=== PATIENT | male | born 1990 | race Two or more races ===

== ENCOUNTER 2022-04-18 08:08 | Inpatient (IN) | payer MEDICAID, SELFPAY ==
[2022-04-18] VITALS (7 sets, daily range): BP systolic 110–136; BP diastolic 65–85; PULSE 90–112; RESP 16–27; TEMP 36.6–37.3; O2SAT 97–100; BMI 20.3
--- NOTE | ~2022-04-18 | XR_ITS ---
EXAMINATION: XR CHEST CLINICAL INFORMATION: Chest tube placement COMPARISON: Chest x-ray performed at 10:22 AM TECHNIQUE: Frontal view of the chest was obtained. FINDINGS: There is interval insertion of a right chest tube with resolution of pneumothorax. The lungs are expanded and clear heart size and pulmonary vascularity is normal. No gross bony abnormality seen. XR/XR chest 1V IMPRESSION: Interval insertion of right chest tube with resolution of pneumothorax. Interval resolution of right pneumothorax status post placement of a chest catheter. The tip of the catheter overlies sixth posterior rib.
--- NOTE | ~2022-04-18 | XR_ITS ---
EXAMINATION: XR CHEST CLINICAL INFORMATION: Follow-up pneumothorax COMPARISON: 04/19/2022 and 04/18/2020 TECHNIQUE: Frontal view of the chest was obtained. FINDINGS: There is stable position of pigtail catheter on the right. No new tubes are identified. Right-sided pneumothorax diminished in size since previous examination. The rest of lungs are well expanded. There is new since previous study left lower lobe patchy opacity projecting over posterior aspect of rib #9 on the left. Cardiomediastinal silhouette is normal. XR/XR chest 1V IMPRESSION: Diminished pneumothorax on the right, stable position of pigtail catheter. Newly developed left lower lobe patchy airspace disease
--- NOTE | ~2022-04-18 | CT_ITS ---
EXAMINATION: CT ANGIOGRAM OF THE CHEST WITH AND WITHOUT CONTRAST (CT PULMONARY ANGIOGRAM FOR PE) CLINICAL INFORMATION: Reason for Exam CP, SOB, pneumthorax COMPARISON: None TECHNIQUE: Prior to contrast administration, noncontrast localization images were obtained. Subsequently, multidetector volumetric imaging was performed from the thoracic inlet to below the diaphragms following the administration of 65 mL Omnipaque 350 intravenous contrast. No contrast reaction reported Sagittal, coronal, and MIP oblique sagittal reformatted images were obtained on the CT workstation, uploaded to PACS, and reviewed. This CT examination was performed using dose optimization techniques as appropriate, variously including the following: *Automated exposure control *Adjustment of mA and/or kV according to patient size (this includes techniques or standardized protocols for targeted exams where dose is matched to indication/reason for exam; i.e. extremities or head) *Use of iterative reconstruction technique Total exam dose-length product 228 mGy-cm FINDINGS: QUALITY OF STUDY/CONTRAST BOLUS: Suboptimal. The pulmonary veins and aorta are better opacified than the pulmonary arteries. PULMONARY ARTERIES: No central or large segmental pulmonary emboli. THORACIC AORTA: No aneurysm or dissection. LUNGS AND PLEURA: Emphysematous changes are present in the lungs with apical blebs. Scattered groundglass opacities are seen. 2 adjacent 7 mm right upper lobe nodules are seen (8:208 and 216). A right-sided chest tube is present with a barely perceptible residual pneumothorax. MEDIASTINUM: Normal heart size. No pericardial effusion. No hilar or mediastinal lymphadenopathy. No evidence of septal bowing or right heart strain. CHEST WALL/AXILLA: No axillary or internal mammary lymphadenopathy. OSSEOUS STRUCTURES: No acute or suspicious osseous abnormality. UPPER ABDOMEN: Unremarkable. No reflux of contrast into the hepatic veins to suggest elevated right heart pressures. CT/CT angio chest PE protocol IMPRESSION: 1. No evidence of pulmonary emboli 2. COPD with apical blebs. 3. Chest tube in place in the right barely perceptible tiny residual pneumothorax. 4. 2 adjacent 7mm right upper lobe pulmonary nodules 2017 Fleischner Society Recommendations for Lung Nodule(s): Follow-Up based on size (average of long- and short-axis diameters). Use most suspicious nodule for followup. Multiple Solid lung nodules 6-8 mm: Follow up management based on most suspicious nodule. In a low-risk patient, recommend a non-contrast Chest CT at 3-6 months, then consider another non-contrast Chest CT at 18-24 months. In a high-risk patient, recommend a non-contrast Chest CT at 3-6 months, then another non-contrast Chest CT at 18-24 months. These guidelines do not apply to patients younger than 35 years, immunocompromised patients, and patients with cancer. F/u in patients with significant comorbidities as clinically warranted. For lung cancer screening, adhere to Lung-RADS guidelines. Reference: Radiology. 2017 Familia; 284(1):228-243 VTE: negative
--- NOTE | ~2022-04-18 | XR_ITS ---
EXAMINATION: XR CHEST CLINICAL INFORMATION: Status post chest tube clamping. COMPARISON: Chest 04/19/2022 TECHNIQUE: Frontal view of the chest was obtained. FINDINGS: Status post chest tube clamping there is recurrent right apical at least 10% pneumothorax.. The lungs are otherwise clear. The heart size and progress clarities normal. XR/XR chest 1V IMPRESSION: Status post clamping of chest tube there is a recurrent pneumothorax at least 10%.
--- NOTE | ~2022-04-18 | XR_ITS ---
EXAMINATION: XR CHEST CLINICAL INFORMATION: Right pneumothorax follow-up COMPARISON: CTA chest dated 04/18/2022 TECHNIQUE: Frontal view of the chest was obtained. FINDINGS: Right pleural pigtail catheter stably positioned. Trace right pneumothorax redemonstrated. No left pneumothorax. Patchy opacities redemonstrated bilaterally. No pleural effusion is normal heart size and pulmonary vascularity. XR/XR chest 1V IMPRESSION: Stable trace right pneumothorax and bilateral patchy airspace opacities, more pronounced on the left
--- NOTE | ~2022-04-18 | XR_ITS ---
EXAMINATION: XR CHEST CLINICAL INFORMATION: Chest tube in place, history of pneumothorax. COMPARISON: 04/19/2022 chest radiograph. TECHNIQUE: Frontal view of the chest was obtained. FINDINGS: Support devices: Right-sided pigtail chest tube in place. Interval decrease in size of right pneumothorax now very small in size measuring approximately 1.2 cm from the right apex (previously 3.2 cm). The left lung is clear. The heart and mediastinal structures are unremarkable. No significant cardiomediastinal shift. XR/XR chest 1V IMPRESSION: Interval decrease in size of right pneumothorax with right chest tube in place.
--- NOTE | ~2022-04-18 | XR_ITS ---
EXAMINATION: XR CHEST CLINICAL INFORMATION: Shortness of breath cough COMPARISON: None TECHNIQUE: Frontal view of the chest was obtained. FINDINGS: Is a moderate size hydropneumothorax. Fluid fluid level noted at the right costophrenic angle. The lungs depressed from the chest wall approximately 3 cm. No shift of mediastinal structures. Left lung clear. Cardiomediastinal silhouette normal. XR/XR chest 1V IMPRESSION: Moderate-sized right hydropneumothorax. This critical result was discussed with Michi Han at approximately 10:52 AM on 04/18/2022 and it was ascertained that the content and urgency of the report was understood at the time of direct communication.
--- NOTE | ~2022-04-18 | XR_ITS ---
EXAMINATION: XR CHEST CLINICAL INFORMATION: Pneumothorax follow-up COMPARISON: 04/20/2022 TECHNIQUE: Frontal view of the chest was obtained. FINDINGS: Right-sided chest tube is been removed. Small right apical pneumothorax again seen increased from the prior study. Left lung and pleural spaces are clear. Normal heart size. XR/XR chest 1V IMPRESSION: Slight interval increase in size of small right apical pneumothorax after right-sided chest tube removal. This critical result was discussed with Tejas GARCIA by telephone at 04/21/2022 10:42 AM and it was ascertained that the content and urgency of the report was understood at the time of direct communication.
--- NOTE | 2022-04-18 10:11 | ED_ITS ---
HPI - General Adult General Chief complaint: Upper Respiratory Symptoms <DANYELL Robison Last Filed: 04/18/22 12:45> Stated complaint: R Side/Arm Pain No Injury <DANYELL Robison Last Filed: 04/18/22 12:45> Time Seen by Provider: 04/18/22 10:10 <DANYELL Robison Last Filed: 04/18/22 12:45> Source: patient <DANYELL Robison Last Filed: 04/18/22 12:45> Mode of arrival: ambulatory <DANYELL Robison Last Filed: 04/18/22 12:45> Limitations: no limitations <DANYELL Robison Last Filed: 04/18/22 12:45> History of Present Illness HPI narrative: 31-year-old thin male with no significant medical history presents to the emergency department with complaints of shortness of breath, substernal aching chest pain that radiates into his right side and right-sided arm numbness since this morning sudden in onset. Patient also has associated cough with production of clear sputum. Patient tells me all the symptoms started this morning. He tells me it hurts him to take a deep breath in. He reports that at this time he is having a dull substernal chest pain, he tells me this is never happened to him before. No personal or significant family cardiac history. This is sudden in onset when patient was at work. Denies sick contacts. Denies fevers, chills, nausea, vomiting, abdominal pain, headache, vision changes in dizziness. Patient not on blood thinners <DANYELL Robison Last Filed: 04/18/22 12:45> Related Data Allergies/adverse reactions: Allergies Allergy/AdvReac Type Severity Reaction Status Date / Time No Known Allergies Allergy Verified 04/18/22 10:34 <DANYELL Robison Last Filed: 04/18/22 12:45> Review of Systems Review of Systems: Constitutional : No Weight loss, No Fever, No Chills, No Fatigue, No Malaise ENT/Mouth : No sore throat, No Rhinorrhea Eyes: No Eye Pain, No Swelling, No Redness Cardiovascular : + Chest Pain, + SOB, No Dyspnea on Exertion, No Orthopnea, No Edema, No Palpitations Respiratory : + Cough, No Sputum, No Wheezing Gastrointestinal : No Nausea, No Vomiting, No Diarrhea, No Constipation, No abdominal Pain, No Hematochezia, No Melena Genitourinary : No Dysuria, No Urinary Frequency, No Hematuria, Musculoskeletal : No joint pain, No Myalgias, No Joint Swelling Skin : No Skin Lesions, No rash Neuro : No Weakness, No Numbness, No Dizziness, No Headache Psych : No Anxiety/Panic, No Depression All other systems reviewed and are negative <DANYELL Roibson - Last Filed: 04/18/22 12:45> Yes all other systems are reviewed and are negative <DANYELL Robison - Last Filed: 04/18/22 12:45> [facility] Past Medical History Attestation statement: The following information was validated with the patient. <DANYELL Robison - Last Filed: 04/18/22 12:45> Source: old records reviewed and nursing notes reviewed <DANYELL Robison - Last Filed: 04/18/22 12:45> Social History Social History: Social History Advance Directives: No Advance Directives Information Provided: Yes <DANYELL Robison - Last Filed: 04/18/22 12:45> Physical Exam ED Vital Signs: Vital Signs - 24 hr 04/18/22 09:56 04/18/22 11:52 04/18/22 12:21 Temperature 98 F Pulse Rate 112 H 109 H 104 H Respiratory Rate 18 24 H 27 H Blood Pressure 117/65 122/79 128/85 Pulse Oximetry 97 100 100 Oxygen Delivery Method Room Air Nasal Cannula Nasal Cannula Oxygen Flow Rate 6 6 BMI result Body Mass Index 20.3 vss <DANYELL Robison - Last Filed: 04/18/22 12:45> Vital Signs - 24 hr 04/18/22 09:56 04/18/22 11:52 04/18/22 12:21 Temperature 98 F Pulse Rate 112 H 109 H 104 H Respiratory Rate 18 24 H 27 H Blood Pressure 117/65 122/79 128/85 Pulse Oximetry 97 100 100 Oxygen Delivery Method Room Air Nasal Cannula Nasal Cannula Oxygen Flow Rate 6 6 BMI result Body Mass Index 20.3 <Katherine Zabala DO - Last Filed: 04/18/22 12:38> Appearance: Alert.? Oriented X3.? No acute distress.? Head: Normocephalic, atraumatic, no step-offs or deformities Eyes: Pupils equal, round and reactive to light.? ENT: Pharynx normal.??External ears normal, TMs normal bilaterally and EAC's normal. No pain with manipulation of external ears bilaterally. No mastoid tenderness. Neck: Normal inspection.? Neck supple.? CVS: Normal heart rate and rhythm.? Pulses normal.? Respiratory: No respiratory distress.? Breath sounds diminished on right.? Abdomen: Soft and nontender.? Skin: Skin warm and dry.? Normal skin color.? Normal skin turgor.? Extremities: No lower extremity edema.? No calf ttp. 5/5 strength to bilateral upper and lower extremities Neuro: Oriented X 3.? No motor deficit.? No sensory deficit. CN 2-12 intact <DANYELL Robison - Last Filed: 04/18/22 12:45> Course Reevaluation(s) Reevaluation #1: Preliminary read of Xray R. Sided pneumothorax, informed by attending who agrees. Patient was moved to the main ED and placed on non-rebreather. Patient 97% on RA, appears well no signs of respiratory distress. Obtained verbal and written consent for a chest tube. Plan for chest tube. <DANYELL Robison - Last Filed: 04/18/22 12:45> Time: 10:30 <DANYELL Robison - Last Filed: 04/18/22 12:45> Reevaluation #2: I received a critical result from Dr. Paul reports patient has a moderate-size right hydropneumothorax <DANYELL Robison - Last Filed: 04/18/22 12:45> Time: 10:52 <DANYELL Robison - Last Filed: 04/18/22 12:45> Reevaluation #3: I successfully placed a away pneumothorax to 14 into patient's right 3/4 mid axillary line. No complications. Patient saturated well the entire time. My attending at the bedside for assistance. Postprocedure films were obtained <DANYELL Robison - Last Filed: 04/18/22 12:45> I successfully placed a pigtail catheter 14 into patient's right 3/4 mid axillary line. No complications. Patient saturated well the entire time. My attending at the bedside for assistance. Postprocedure films were obtained <Katherine Zabala DO - Last Filed: 04/18/22 12:38> Time: 12:08 <DANYELL Robison - Last Filed: 04/18/22 12:45> Additional Reevaluation(s): 1244 CBC appears to be within normal limits. Chemistry wo acute electrolyte a bnormalities requiring intervention. D-dimer negative. Patient noted to be COVID positive. Repeat chest x-ray in chemistry pending at this time. Text to hospitalist for admission, pending response. Spoke to Shauna Ryan from thoracic who will follow this case when patient is admitted in hospital. <DANYELL Robison - Last Filed: 04/18/22 12:45> Procedures Chest Tube Chest Tube 1: Chest Tube Location: right and mid axillary line <DANYELL Robison - Last Filed: 04/18/22 12:45> Size of Tube (cm): 14 <DANYELL Robison - Last Filed: 04/18/22 12:45> Chest Tube Prep: Yes betadine prep and sterile drapes applied <DANYELL Robison - Last Filed: 04/18/22 12:45> Local Anesthetic: lidocaine 1% <DANYELL Robison - Last Filed: 04/18/22 12:45> Amount of anesthesia used (mL): 10 <DANYELL Robison - Last Filed: 04/18/22 12:45> Incision Made With: #11 blade <DANYELL Robison - Last Filed: 04/18/22 12:45> Post Procedure: sutured to skin and sterile dressing applied <DANYELL Robison - Last Filed: 04/18/22 12:45> Tube Drainage: none <DANYELL Robison - Last Filed: 04/18/22 12:45> Post Procedure CXR?: Yes <DANYELL Robison - Last Filed: 04/18/22 12:45> Patient Tolerated Procedure: Yes <DANYELL Robison - Last Filed: 04/18/22 12:45> Medical Decision Making MDM Narrative Medical decision making narrative: 1017 31 year old male presents with sudden onset sob, substernal aching chest pain that radiates into his right side and right-sided arm numbness since this morning. PE with diminished breath sounds on the right Likely viral in origin. Will rule out ACS, PE, pneumonia. Unlikely that this is dissectio. Concerns for pneumothorax due to diminished breath sounds, stat cxr ordered Plan- labs, imaging, flu, covid. <DANYELL Robison - Last Filed: 04/18/22 12:45> Medical Records Medical records reviewed: Yes I reviewed the patient's medical records. <DANYELL Robison - Last Filed: 04/18/22 12:45> Lab Data Lab results reviewed: Yes I reviewed the patient's lab results. <DANYELL Robison - Last Filed: 04/18/22 12:45> Result diagrams: : 04/18/22 10:49 04/18/22 12:19 <DANYELL Robison - Last Filed: 04/18/22 12:45> Labs: Lab Results 04/18/22 04/18/22 04/18/22 Range/Units 10:49 10:49 10:49 WBC 9.2 (4.8-10.8) X10*3/uL RBC 3.63 L (4.60-5.80) X10*6/uL Hgb 10.9 L (14.0-18.0) g/dl Hct 32.3 L (42.0-52.0) % MCV 89.0 (80.0-98.0) fL MCH 30.0 (27.0-33.0) pg MCHC 33.7 (31.0-36.0) g/dl RDW 12.4 (11.0-16.0) % Plt Count 288 (160-400) X10*3/uL MPV 10.6 (9.4-12.4) fL Immature Gran % (Auto) 0.3 (0.0-0.4) % Neut % (Auto) 85.8 H (45-73) % Lymph % (Auto) 6.4 L (20-40) % [place] % (Auto) 7.1 (2-11) % Eos % (Auto) 0.2 (0-4) % Baso % (Auto) 0.2 (0-2) % Lymph # (Auto) 0.6 L (1.2-4.9) X10*3/uL [place] # (Auto) 0.7 (0.1-1.2) X10*3/uL Eos # (Auto) 0.0 (0.0-0.4) X10*3/uL Baso # (Auto) 0.0 (0.0-0.2) X10*3/uL Abs Immat Gran (auto) 0.03 (0.00-0.03) X10*3/uL Absolute Neuts (auto) 7.9 (2.0-8.3) x10*3/uL Absolute Nucleated RBC 0.000 (0.0-0.012) X10*3/uL Nucleated RBC % (auto) 0.0 (0.0-0.2) /100WBC D-Dimer High Sensitivty 225 NG/ML Sodium (135-145) mmol/L Potassium (3.3-5.1) mmol/L Chloride (96-108) mmol/L Carbon Dioxide (22-29) mmol/L Anion Gap (12-20) BUN (9-16) mg/dL Creatinine (0.5-1.4) mg/dL Estim Creat Clear Calc Estimated GFR Random Glucose (60-115) mg/dL Calcium (8.4-10.2) mg/dL Total Bilirubin (0.0-1.0) mg/dL AST (5-37) U/L ALT (0-40) U/L Alkaline Phosphatase (39-117) U/L Troponin I High Sens < 3.5 (<3.5-35.0) ng/L Total Protein (6.5-8.0) g/dL Albumin (3.5-5.0) g/dL COVID-19 (ROJELIO) (Negative) COVID-19 Clin Com 04/18/22 04/18/22 Range/Units 10:58 12:19 WBC (4.8-10.8) X10*3/uL RBC (4.60-5.80) X10*6/uL Hgb (14.0-18.0) g/dl Hct (42.0-52.0) % MCV (80.0-98.0) fL MCH (27.0-33.0) pg MCHC (31.0-36.0) g/dl RDW (11.0-16.0) % Plt Count (160-400) X10*3/uL MPV (9.4-12.4) fL Immature Gran % (Auto) (0.0-0.4) % Neut % (Auto) (45-73) % Lymph % (Auto) (20-40) % [place] % (Auto) (2-11) % Eos % (Auto) (0-4) % Baso % (Auto) (0-2) % Lymph # (Auto) (1.2-4.9) X10*3/uL [place] # (Auto) (0.1-1.2) X10*3/uL Eos # (Auto) (0.0-0.4) X10*3/uL Baso # (Auto) (0.0-0.2) X10*3/uL Abs Immat Gran (auto) (0.00-0.03) X10*3/uL Absolute Neuts (auto) (2.0-8.3) x10*3/uL Absolute Nucleated RBC (0.0-0.012) X10*3/uL Nucleated RBC % (auto) (0.0-0.2) /100WBC D-Dimer High Sensitivty NG/ML Sodium 139 (135-145) mmol/L Potassium 4.3 (3.3-5.1) mmol/L Chloride 106 (96-108) mmol/L Carbon Dioxide 25 (22-29) mmol/L Anion Gap 12 (12-20) BUN 8 L (9-16) mg/dL Creatinine 0.66 (0.5-1.4) mg/dL Estim Creat Clear Calc 135.2 Estimated GFR > 60 Random Glucose 93 (60-115) mg/dL Calcium 8.3 L (8.4-10.2) mg/dL Total Bilirubin 0.4 (0.0-1.0) mg/dL AST 20 (5-37) U/L ALT 12 (0-40) U/L Alkaline Phosphatase 51 (39-117) U/L Troponin I High Sens (<3.5-35.0) ng/L Total Protein 7.3 (6.5-8.0) g/dL Albumin 3.1 L (3.5-5.0) g/dL COVID-19 (ROJELIO) Positive A (Negative) COVID-19 Clin Com See Note <DANYELL Robison - Last Filed: 04/18/22 12:45> Lab Results 04/18/22 04/18/22 04/18/22 Range/Units 10:49 10:49 10:49 WBC 9.2 (4.8-10.8) X10*3/uL RBC 3.63 L (4.60-5.80) X10*6/uL Hgb 10.9 L (14.0-18.0) g/dl Hct 32.3 L (42.0-52.0) % MCV 89.0 (80.0-98.0) fL MCH 30.0 (27.0-33.0) pg MCHC 33.7 (31.0-36.0) g/dl RDW 12.4 (11.0-16.0) % Plt Count 288 (160-400) X10*3/uL MPV 10.6 (9.4-12.4) fL Immature Gran % (Auto) 0.3 (0.0-0.4) % Neut % (Auto) 85.8 H (45-73) % Lymph % (Auto) 6.4 L (20-40) % [place] % (Auto) 7.1 (2-11) % Eos % (Auto) 0.2 (0-4) % Baso % (Auto) 0.2 (0-2) % Lymph # (Auto) 0.6 L (1.2-4.9) X10*3/uL [place] # (Auto) 0.7 (0.1-1.2) X10*3/uL Eos # (Auto) 0.0 (0.0-0.4) X10*3/uL Baso # (Auto) 0.0 (0.0-0.2) X10*3/uL Abs Immat Gran (auto) 0.03 (0.00-0.03) X10*3/uL Absolute Neuts (auto) 7.9 (2.0-8.3) x10*3/uL Absolute Nucleated RBC 0.000 (0.0-0.012) X10*3/uL Nucleated RBC % (auto) 0.0 (0.0-0.2) /100WBC D-Dimer High Sensitivty 225 NG/ML Sodium (135-145) mmol/L Potassium (3.3-5.1) mmol/L Chloride (96-108) mmol/L Carbon Dioxide (22-29) mmol/L Anion Gap (12-20) BUN (9-16) mg/dL Creatinine (0.5-1.4) mg/dL Estim Creat Clear Calc Estimated GFR Random Glucose (60-115) mg/dL Calcium (8.4-10.2) mg/dL Total Bilirubin (0.0-1.0) mg/dL AST (5-37) U/L ALT (0-40) U/L Alkaline Phosphatase (39-117) U/L Troponin I High Sens < 3.5 (<3.5-35.0) ng/L Total Protein (6.5-8.0) g/dL Albumin (3.5-5.0) g/dL COVID-19 (ROJELIO) (Negative) COVID-19 Clin Com 04/18/22 04/18/22 Range/Units 10:58 12:19 WBC (4.8-10.8) X10*3/uL RBC (4.60-5.80) X10*6/uL Hgb (14.0-18.0) g/dl Hct (42.0-52.0) % MCV (80.0-98.0) fL MCH (27.0-33.0) pg MCHC (31.0-36.0) g/dl RDW (11.0-16.0) % Plt Count (160-400) X10*3/uL MPV (9.4-12.4) fL Immature Gran % (Auto) (0.0-0.4) % Neut % (Auto) (45-73) % Lymph % (Auto) (20-40) % [place] % (Auto) (2-11) % Eos % (Auto) (0-4) % Baso % (Auto) (0-2) % Lymph # (Auto) (1.2-4.9) X10*3/uL [place] # (Auto) (0.1-1.2) X10*3/uL Eos # (Auto) (0.0-0.4) X10*3/uL Baso # (Auto) (0.0-0.2) X10*3/uL Abs Immat Gran (auto) (0.00-0.03) X10*3/uL Absolute Neuts (auto) (2.0-8.3) x10*3/uL Absolute Nucleated RBC (0.0-0.012) X10*3/uL Nucleated RBC % (auto) (0.0-0.2) /100WBC D-Dimer High Sensitivty NG/ML Sodium 139 (135-145) mmol/L Potassium 4.3 (3.3-5.1) mmol/L Chloride 106 (96-108) mmol/L Carbon Dioxide 25 (22-29) mmol/L Anion Gap 12 (12-20) BUN 8 L (9-16) mg/dL Creatinine 0.66 (0.5-1.4) mg/dL Estim Creat Clear Calc 135.2 Estimated GFR > 60 Random Glucose 93 (60-115) mg/dL Calcium 8.3 L (8.4-10.2) mg/dL Total Bilirubin 0.4 (0.0-1.0) mg/dL AST 20 (5-37) U/L ALT 12 (0-40) U/L Alkaline Phosphatase 51 (39-117) U/L Troponin I High Sens (<3.5-35.0) ng/L Total Protein 7.3 (6.5-8.0) g/dL Albumin 3.1 L (3.5-5.0) g/dL COVID-19 (ROJELIO) Positive A (Negative) COVID-19 Clin Com See Note <Katherine [place], DO - Last Filed: 04/18/22 12:38> ECG Data Attestation: I personally reviewed and interpreted this ECG as follows: <Katherine Zabala DO - Last Filed: 04/18/22 12:38> Interpretation: Rate: 107 Rhythm: sinus tachycardia [place]: normal Normal P waves. Normal THERESE. Normal QRS complex. ST T wave : normal no SARA qTC: normal prior studies: no acute ischemia The study has been interpreted contemporaneously by me. . <Katherine Zabala DO - Last Filed: 04/18/22 12:38> Critical Care Time Critical Care Time Critical Care Time: Yes <DANYELL Robison - Last Filed: 04/18/22 12:45> Total Critical Care Time: 60 <DANYELL Robison - Last Filed: 04/18/22 12:45> Attestation: I attest to this time spent taking care of the patient, obtaining history, physical, reviewing labs, imaging, speaking to my attending, speaking to specialist. <DANYELL Robison - Last Filed: 04/18/22 12:45> Discharge Plan Discharge Clinical Impression: Spontaneous pneumothorax, COVID-19 <DANYELL Robison - Last Filed: 04/18/22 12:45> Patient Disposition: Admitted As Inpatient <DANYELL Robison Last Filed: 04/18/22 12:45>
--- NOTE | 2022-04-18 10:16 | ECG_ITS ---
Test Reason : Dysapnea Blood Pressure : / mmHG Vent. Rate : 107 BPM Atrial Rate : 107 BPM P-R Int : 150 ms QRS Dur : 078 ms QT Int : 328 ms P-R-T Axes : 075 087 069 degrees QTc Int : 437 ms Sinus tachycardia Otherwise normal ECG No previous ECGs available Referred By: Michi Han Electronically Signed By:HENRY BROWN MD
[2022-04-18 10:56] LABS: MANUAL DIFF FLAG NO
[2022-04-18 10:59] LABS: Basophils Percent Auto 0.2 % (0-2); Eosinophils Percent Auto 0.2 % (0-4); Hematocrit 32.3 % (42.0-52.0); Hemoglobin 10.9 g/dl (14.0-18.0); Imm Gran Abs Auto 0.03 X10*3/uL (0.00-0.03); Imm Gran Pct Auto 0.3 % (0.0-0.4); Lymphocytes Absolute Auto 0.6 X10*3/uL (1.2-4.9); Lymphocytes Percent Auto 6.4 % (20-40); Mean Corpuscular HGB Conc 33.7 g/dl (31.0-36.0); Mean Platelet Volume 10.6 fL (9.4-12.4); Monocytes Absolute Auto 0.7 X10*3/uL (0.1-1.2); Monocytes Percent Auto 7.1 % (2-11); Neutrophils Absolute Auto 7.9 x10*3/uL (2.0-8.3); Neutrophils Percent Auto 85.8 % (45-73); Platelet Count 288 X10*3/uL (160-400); Red Blood Count 3.63 X10*6/uL (4.60-5.80); Red Cell Distribution Width 12.4 % (11.0-16.0); White Blood Count 9.2 X10*3/uL (4.8-10.8)
[2022-04-18 11:06] LABS: D Dimer High Sensitivity 225 NG/ML
[2022-04-18] MEDS: fentaNYL citrate/PF 100 MCG/2 ML VIAL 50 MCG IVPUSH (11:16)
[2022-04-18] MEDS: ondansetron HCL 4 MG/2 ML VIAL IVPUSH (11:16)
[2022-04-18 11:18] LABS: COVID-19 Test Positive (Negative); IDNOW Serial# 16C4AD1C
--- NOTE | 2022-04-18 11:19 | PC.NURSE ---
plan for chest tube placement for R sided pneumothorax. 50mcg given for pain management and topical lidocaine administered by dr zabala HR 123, SaO2 100% on 6L NC , RR 16, BP 132/73 1mg Versed given at 1126 IVP verbal order by dr zabala 1L NS hanging Arianne CHILD, Dr Zabala, Ervin RN, zeenat RN and Breann PCT at bedside. pt awake and alert, pain well managed
[2022-04-18 11:23] LABS: Troponin-I High Sensitivity < 3.5 ng/L (<3.5-35.0)
[2022-04-18] MEDS: Lidocaine HCl 1 % MPF 5 ML VIAL 20 ML SUBCUT (11:54)
[2022-04-18] MEDS: Midazolam HCl/PF 2 MG/2 ML VIAL 1 MG IVPUSH (12:11)
[2022-04-18] MEDS: 0.9 % Sodium Chloride 1,000 ML 999 ML IV (12:12)
[2022-04-18 12:43] LABS: Alanine Aminotransferase 12 U/L (0-40); Albumin Level 3.1 g/dL (3.5-5.0); Alkaline Phosphatase 51 U/L (39-117); Anion Gap 12 (12-20); Aspartate Amino Transferase 20 U/L (5-37); Bilirubin Total 0.4 mg/dL (0.0-1.0); Blood Urea Nitrogen 8 mg/dL (9-16); Calcium 8.3 mg/dL (8.4-10.2); Carbon Dioxide 25 mmol/L (22-29); Chloride 106 mmol/L (96-108); Creatinine Clr Calc Pharmacy 135.2; Estimated Glomerular Filt Rate > 60; Glucose Random 93 mg/dL (60-115); Potassium 4.3 mmol/L (3.3-5.1); Sodium 139 mmol/L (135-145); Total Protein 7.3 g/dL (6.5-8.0)
[2022-04-18 12:49] LABS: IDNOW Serial# 16C4AD1C; Influenza A Negative (Negative); Influenza B2 Negative (Negative)
--- NOTE | 2022-04-18 13:52 | PHA.MEDREC ---
Pharmacy Consult ? Medication Reconciliation Pharmacy has completed the medication reconciliation. Patient reports only taking centrum. Viry Choi, [facility]
--- NOTE | 2022-04-18 14:37 | PM.IMHP ---
History of Present Illness Date of Service: 04/18/22 <DANYELL Bailey - Last Filed: 04/18/22 15:50> Attending physician on admission: Leighton Cristobal <DANYELL Bailey - Last Filed: 04/18/22 15:50> Chief Complaint: sob, cp <DANYELL Bailey - Last Filed: 04/18/22 15:50> 31 year old male without significant medical history but who is a current everyday cigarette and occassional MJ smoker presented to the ED this am complaining right arm paresthesias and substernal chest ache radiating to right side that came on suddenly this morning. There is also a cough with clear sputum production. On arrival pt tachycardia to 112, tachypneic to 27, no hypoxia but started on 6L O2 via NC. Heme studies showed normocytic anemia 10.9/32.2%. Renal and hepatic function normal with stable lytes. D Dimer borderline at 225. CXR showed moderate right pneumothorax. He denies any recent injury, no hx chronic lung disease, does smoke 0.5ppd and smokes MJ occassionally. No illicit drug use. Pigtail chest tube 14 placed with repeat CXR showing full resolution of pneumothorax. CTA ordered due to borderline D-Dimer and clinical presentation which is still pending. Positive for COVID-19, negative influenza. Trop <3.5. EKG Sinus tach, rate [address]/T wave abnormality. No fevers, chills, nasal congestion, sore throat, runny nose, nausea/vomiting, abdominal pain, myalgia, constipation, shortness of breath or lightheadedness. Does endorse 8+ episodes watery diarrhea ongoing several month. No blood in the stool. No recent travel. <DANYELL Bailey - Last Filed: 04/18/22 15:50> Review of Systems Review of Systems: General: No fevers, malaise, unintentional weight loss HEENT: No blurred vision, diplopia. No sore throat, rhinorrhea, nasal congestion Cardiovascular: +chest pain. No palpitations, or leg edema Respiratory: +sob, cough. No wheezing GI: +diarrhea. No abdominal pain, nausea, vomiting, constipation, melena, hematochezia MSK: No myalgia Neuro: No headaches, weakness, paresthesias Skin: No rashes or lesions <DANYELL Bailey - Last Filed: 04/18/22 15:50> [facility] Medical History: Medical History (Updated 04/18/22 @ 15:43 by DANYELL Bailey) COVID-19 Spontaneous pneumothorax <DANYELL Bailey - Last Filed: 04/18/22 15:50> Family History: Family History (Updated 04/18/22 @ 15:43 by DANYELL Bailey) Mother No active medical problems Father No active medical problems <DANYELL Bailey - Last Filed: 04/18/22 15:50> Social History: Social History Alcohol intake: former Patient Tobacco Use Status: Current everyday Tobacco user Smoked in Last 30 Days: Yes Use of substances other than those prescribed or required for medical reasons: Yes Substance Use Type: Marijuana Advance Directives: No Advance Directives Information Provided: Yes <DANYELL Bailey - Last Filed: 04/18/22 15:50> Meds Allergies/Adverse reactions: Allergies Allergy/AdvReac Type Severity Reaction Status Date / Time No Known Allergies Allergy Verified 04/18/22 10:34 <DANYELL Bailey - Last Filed: 04/18/22 15:50> Active Medications: Current Medications Acetaminophen (Acetaminophen 325 Mg Tablet) 650 mg PO Q6H PRN PRN Reason: Pain, Mild (Pain Scale 1-3) Docusate Sodium (Docusate Sodium 100 Mg Capsule) 100 mg PO DAILY PRN PRN Reason: Constipation Enoxaparin Sodium (Enoxaparin Sodium 40 Mg/0.4 Ml Syringe) 40 mg SUBCUT Q24H [facility] Multivitamins/Vitamin C (Multivitamin Tablet) 1 tab PO DAILY [facility] Ondansetron HCl (Ondansetron Hcl 4 Mg/2 Ml Vial) 4 mg IVPUSH Q8H PRN PRN Reason: Nausea and Vomiting Pharmacy Consult (Consult Rx Perform Med Rec) 1 each MISCELLANE ONCE PRN PRN Reason: Consult order Sodium Chloride (0.9 % Sodium Chloride Flush 3 Ml Syringe) 3 ml IVFLUSH QSHIFT [facility] <DANYELL Bailey - Last Filed: 04/18/22 15:50> Home medications: Home Medications Medication Instructions Recorded Confirmed Last Taken Type multivitamin 1 tab PO DAILY 04/18/22 04/18/22 Unknown History <DANYELL Bailey - Last Filed: 04/18/22 15:50> Physical Exam Vital Signs and Narrative: Vital Signs: Last Vital Signs Temp 98 F 04/18/22 09:56 Pulse 105 H 04/18/22 13:10 Resp 18 04/18/22 13:10 BP 119/78 04/18/22 13:10 Pulse Ox 100 04/18/22 13:10 O2 Del Method 04/18/22 13:10 O2 Flow Rate 3 04/18/22 13:10 Oxygen Flow Rate 6 04/18/22 13:10 BMI result Body Mass Index 20.3 <DANYELL Bailey - Last Filed: 04/18/22 15:50> Constitutional - Awake and Alert, No apparent distress Eyes - PERRLA, EOMI Cardiovascular - S1S2, RRR, No edema Respiratory - Normal lung expansion, Normal respiratory effort, No respiratory distress, CTA bilaterally. Pigtail chest tube in place in right lateral *5th intercostal space low covered by bandage without any fluid draining Gastrointestinal - NT / ND; +BS; No rebound or guarding Extremities - no calf tenderness bilaterally, no swelling Skin - Warm/Dry Neurological - Alert & oriented x3, No focal deficit <DANYELL Bailey - Last Filed: 04/18/22 15:50> Results Labs CBC and Chem 7: : 04/18/22 10:49 04/18/22 12:19 <DANYELL Bailey - Last Filed: 04/18/22 15:50> Labs: Laboratory Results - last 24 hr 04/18/22 04/18/22 04/18/22 10:49 10:49 10:49 MCV 89.0 MCH 30.0 MCHC 33.7 RDW 12.4 Plt Count 288 MPV 10.6 Immature Gran % (Auto) 0.3 Neut % (Auto) 85.8 H Lymph % (Auto) 6.4 L [place] % (Auto) 7.1 Eos % (Auto) 0.2 Baso % (Auto) 0.2 Lymph # (Auto) 0.6 L [place] # (Auto) 0.7 Eos # (Auto) 0.0 Baso # (Auto) 0.0 Abs Immat Gran (auto) 0.03 Absolute Neuts (auto) 7.9 Absolute Nucleated RBC 0.000 Nucleated RBC % (auto) 0.0 D-Dimer High Sensitivty 225 Anion Gap Estim Creat Clear Calc Estimated GFR Random Glucose Calcium Total Bilirubin AST ALT Alkaline Phosphatase Troponin I High Sens < 3.5 Total Protein Albumin COVID-19 (ROJELIO) COVID-19 Clin Com Influenza Type A (HILARIO) Influenza Type B (HILARIO) Influenza A & B Note 04/18/22 04/18/22 04/18/22 10:58 12:19 12:25 MCV MCH MCHC RDW Plt Count MPV Immature Gran % (Auto) Neut % (Auto) Lymph % (Auto) [place] % (Auto) Eos % (Auto) Baso % (Auto) Lymph # (Auto) [place] # (Auto) Eos # (Auto) Baso # (Auto) Abs Immat Gran (auto) Absolute Neuts (auto) Absolute Nucleated RBC Nucleated RBC % (auto) D-Dimer High Sensitivty Anion Gap 12 Estim Creat Clear Calc 135.2 Estimated GFR > 60 Random Glucose 93 Calcium 8.3 L Total Bilirubin 0.4 AST 20 ALT 12 Alkaline Phosphatase 51 Troponin I High Sens Total Protein 7.3 Albumin 3.1 L COVID-19 (ROJELIO) Positive A COVID-19 Clin Com See Note Influenza Type A (HILARIO) Negative Influenza Type B (HILARIO) Negative Influenza A & B Note See Note <DANYELL Bailey - Last Filed: 04/18/22 15:50> Imaging Radiologist's Impressions: Impressions Chest X-Ray 04/18/22 10:20 IMPRESSION: Moderate-sized right hydropneumothorax. This critical result was discussed with Michi Han at approximately 10:52 AM on 04/18/2022 and it was ascertained that the content and urgency of the report was understood at the time of direct communication. Chest X-Ray 04/18/22 11:55 IMPRESSION: Interval insertion of right chest tube with resolution of pneumothorax. Interval resolution of right pneumothorax status post placement of a chest catheter. The tip of the catheter overlies sixth posterior rib. <DANYELL Bailey - Last Filed: 04/18/22 15:50> Assessment and Plan (1) Spontaneous pneumothorax: Status: Acute <DANYELL Bailey - Last Filed: 04/18/22 15:50> (2) COVID-19: Status: Acute <DANYELL Bailey - Last Filed: 04/18/22 15:50> 31 year old male without significant medical history but who is a current everyday cigarette and MJ smoker admitted for spontaneous pneumothorax and COVID-19. #Spontaneous pneumothorax- etiology unclear at this time- possibly secondary to smoking, COVID-19, vs other etiology -CXR showing right sided moderate hydropneumothorax -Pigtail chest tube 14 placed in ED. Repeat CXR shows resolution of pneumothorax -Thoracic surgery consult placed -Pulmology consulted for chest tube management -CTA chest pending -Smoking cessation advised -Titrate O2 given resolution on pneumothorax #COVID-19 -not high risk patient -Antivirals and steroids not indicated -Symptomatic treatment with guaifenesin, albuterol, po hydration -Droplet/contact precautions # diarrhea -8+ episodes watery diarrhea daily x few months without bleeding -CDiff and stool studies pending -Has mild normocytic amenia. Stool occult blood ordered. Repeat CBC am for stability #Current everyday smoker -NRT with patches -Cigarette and MJ cessation counseling DVT proph- lovenox Full code Pt requires inpt stay at least 2 midnights due to spontaneous pneumothorax requriing chest tube placement with covid-19 with further investigation required into etiology of pneumothorax with expert consultation placed. <DANYELL Bailey - Last Filed: 04/18/22 15:50> 31 year old male without significant medical history but who is a current everyday cigarette and MJ smoker admitted for spontaneous pneumothorax and COVID-19. #Spontaneous pneumothorax- etiology unclear at this time- possibly secondary to smoking, COVID-19, vs other etiology -CXR showing right sided moderate hydropneumothorax -Pigtail chest tube 14 placed in ED. Repeat CXR shows resolution of pneumothorax -Thoracic surgery consult placed -Pulmology consulted for chest tube management -CTA chest pending -Smoking cessation advised -Titrate O2 given resolution on pneumothorax #COVID-19 -not high risk patient -Antivirals and steroids not indicated -Symptomatic treatment with guaifenesin, albuterol, po hydration -Droplet/contact precautions # diarrhea -8+ episodes watery diarrhea daily x few months without bleeding -CDiff and stool studies pending -Has mild normocytic amenia. Stool occult blood ordered. Repeat CBC am for stability #Current everyday smoker -NRT with patches -Cigarette and MJ cessation counseling DVT proph- lovenox Full code Pt requires inpt stay at least 2 midnights due to spontaneous pneumothorax requriing chest tube placement with covid-19 with further investigation required into etiology of pneumothorax with expert consultation placed. Attending addensum: patient is seen today. I agree with the above assessment. Spoke to the ICU attending , recommended to continue to monitor. Patient currently breathing comfortably. Patient has history of smoking. CT scan showed labs; likely contributing to spontaneous hydropneumothorax. COVID positive: Patient reports he got 1 dose vaccine. Currently breathing comfortably. Id consult. <Leighton Cristobal MD - Last Filed: 04/18/22 17:37> Quality Stroke Does the patient have a stroke diagnosis?: No <DANYELL Bailey - Last Filed: 04/18/22 15:50> VTE Prior VTE?: No <DANYELL Bailey - Last Filed: 04/18/22 15:50> VTE Risk Level:: Medical - moderate - high <DANYELL Bailey - Last Filed: 04/18/22 15:50> VTE Device Contraindication: Treatment Not Indicated <DANYELL Bailey - Last Filed: 04/18/22 15:50> VTE Drug Contraindication: N/A - Med Ordered <DANYELL Bailey - Last Filed: 04/18/22 15:50>
[2022-04-18] MEDS: iohexoL 350 MG/ML 100 ML INFUS..BTL IV (15:03)
--- NOTE | 2022-04-18 15:56 | P.CONPL_ITS ---
History of Present Illness History of Present Illness Consult date: 04/18/22 Requesting physician: Hayde Sawant Chief complaint: Hydropneumothorax w chest tube, COVID 19 Narrative: 31-year-old gentleman, active 10 pack-year smoker admitted on 04/18/2022 with right-sided chest discomfort, paresthesia, and COVID with spontaneous right- sided pneumothorax status post placement of 14 [place] pigtail with pneumothorax resolution, and no significant hypoxia. No air leak in the collection chamber. Review of Systems 2 Constitutional: Constitutional: Denies daytime sleepiness, Denies excessive sweating, Denies fatigue, Denies fever(s), Denies lethargy, Denies malaise, Denies night sweats, Denies snoring and Denies weight loss Eyes: Eyes: Denies blurry vision and Denies itchy eyes ENT: Denies nasal congestion, Denies post nasal drip, Denies sinus pain, Denies sinus pressure and Denies other ( Thrush) Cardiovascular: Cardiovascular: Reports chest pain ( Right-sided), Denies pedal edema, Reports dyspnea, Denies orthopnea and Denies paroxysmal nocturnal dyspnea Respiratory: Respiratory: Denies cough, Denies hemoptysis, Denies excessive phlegm production, Reports dyspnea, Denies snoring and Denies wheezing Gastrointestinal: Gastrointestinal: Denies abdominal pain and Denies heartburn Musculoskeletal: Musculoskeletal: Denies myalgias, Denies arthralgias and Denies joint swelling Integumentary/Breasts: Skin/Breast: Denies rash Neurologic: Denies memory loss and Denies seizure-like activity Psychiatric: Psychiatric: Denies abnormal sleep pattern, Reports anxiety and Denies memory loss Endocrine: Endocrine: Denies excessive sweating, Denies fatigue and Denies heat intolerance Hematologic/Lymphatic: Hematologic/Lymphatic: Denies easy bruising Allergic/Immunologic: Allergic/Immunologic: Denies itchy eyes, Denies seasonal rhinorrhea and Denies wheezing PMFSH Past Medical History Medical History (Updated 04/18/22 @ 15:43 by DANYELL Bailey) COVID-19 Spontaneous pneumothorax Family History Family History (Updated 04/18/22 @ 15:43 by DANYELL Bailey) Mother No active medical problems Father No active medical problems Social History Social History Alcohol intake: former Patient Tobacco Use Status: Current everyday Tobacco user Smoked in Last 30 Days: Yes Use of substances other than those prescribed or required for medical reasons: Yes Substance Use Type: Marijuana Advance Directives: No Advance Directives Information Provided: Yes Meds Allergies Allergy/AdvReac Type Severity Reaction Status Date / Time No Known Allergies Allergy Verified 04/18/22 10:34 Active Medications: Current Medications Acetaminophen (Acetaminophen 325 Mg Tablet) 650 mg PO Q6H PRN PRN Reason: Pain, Mild (Pain Scale 1-3) Docusate Sodium (Docusate Sodium 100 Mg Capsule) 100 mg PO DAILY PRN PRN Reason: Constipation Enoxaparin Sodium (Enoxaparin Sodium 40 Mg/0.4 Ml Syringe) 40 mg SUBCUT Q24H [facility] Guaifenesin (Guaifenesin 200 Mg/10 Ml 10 Ml Liquid) 10 ml PO Q6H PRN PRN Reason: Cough Multivitamins/Vitamin C (Multivitamin Tablet) 1 tab PO DAILY [facility] Ondansetron HCl (Ondansetron Hcl 4 Mg/2 Ml Vial) 4 mg IVPUSH Q8H PRN PRN Reason: Nausea and Vomiting Pharmacy Consult (Consult Rx Perform Med Rec) 1 each MISCELLANE ONCE PRN PRN Reason: Consult order Sodium Chloride (0.9 % Sodium Chloride Flush 3 Ml Syringe) 3 ml IVFLUSH QSHIFT [facility] Home Medications Medication Instructions Recorded Confirmed Last Taken Type multivitamin 1 tab PO DAILY 04/18/22 04/18/22 Unknown History Physical Exam Vital Signs: Vital Signs: Last Vital Signs Temp 98 F 04/18/22 09:56 Pulse 105 H 04/18/22 13:10 Resp 18 04/18/22 13:10 BP 119/78 04/18/22 13:10 Pulse Ox 100 04/18/22 13:10 O2 Del Method 04/18/22 13:10 O2 Flow Rate 3 04/18/22 13:10 Oxygen Flow Rate 6 04/18/22 13:10 BMI result Body Mass Index 20.3 Const: General: no acute distress and alert Nutritional Appearance: not o bese Orientation/consciousness: Other orientation findings ( oriented) HEENT: Head: Yes atraumatic Mouth: no other ( thrush) Throat: No postnasal drainage Eyes: General: appearance normal, both eyes and all related structures Sclerae: sclerae normal EOM: EOMs intact bilaterally Neck: Neck: Yes supple Lymphatic: no lymphadenopathy noted Resp: Effort & Inspection: normal respiratory effort and no use of accessory muscles Auscultation: clear to auscultation bilaterally Cardio: Rate: regular rate Rhythm: regular rhythm Heart sounds: no gallops, no murmurs and no rubs GI: Palpation (GI): Soft to palpation and Other GI palpation findings present ( nontender) Skin: General skin exam: other ( warm) Rashes: no rashes Extrem: General: No clubbing, No cyanosis and No edema Results Laboratory Findings CBC and BMP: 04/18/22 10:49 04/18/22 12:19 Abnormal lab findings: Abnormal Labs 04/18/22 04/18/22 04/18/22 10:49 10:58 12:19 RBC 3.63 L Hgb 10.9 L Hct 32.3 L Neut % (Auto) 85.8 H Lymph % (Auto) 6.4 L Lymph # (Auto) 0.6 L BUN 8 L Calcium 8.3 L Albumin 3.1 L COVID-19 (ROJELIO) Positive A Assessment and Plan (1) COVID-19: Status: Acute (2) Spontaneous pneumothorax: Status: Acute Plan Impression: 31-year-old gentleman active 10 pack-year smoker admitted with spontaneous right-sided pneumothorax on the background of otherwise mild COVID, now status post placement of 14 [place] pigtail with resolution of pneumothorax and no air leak in collection chamber. CT chest significant for bilateral apical bullae. Recommendations: Continue chest tube on water seal. Will clamp in a.m. to assess for pneumothorax recurrence. Procedures Date of Service Date of Service: 04/18/22
[2022-04-18] MEDS: Acetaminophen 325 MG TABLET 650 MG PO (17:34)
[2022-04-18] MEDS: Enoxaparin Sodium 40 MG/0.4 ML SYRINGE SUBCUT (17:35)
[2022-04-18] MEDS: 0.9 % Sodium Chloride Flush 3 ML SYRINGE IVFLUSH ×2 (17:38→23:46)
[2022-04-19] VITALS: BP 116/69; PULSE 90; RESP 18; TEMP 37.3; O2SAT 99
[2022-04-19 01:42] VITALS: BMI 20.5
[2022-04-19] MEDS: Acetaminophen 325 MG TABLET 650 MG PO (01:46)
[2022-04-19 03:02] VITALS: BP 117/71; PULSE 106; RESP 20; TEMP 37.6; O2SAT 96
[2022-04-19 07:14] LABS: MANUAL DIFF FLAG NO
[2022-04-19 07:32] LABS: Basophils Percent Auto 0.3 % (0-2); Eosinophils Absolute Auto 0.1 X10*3/uL (0.0-0.4); Eosinophils Percent Auto 0.8 % (0-4); Hematocrit 31.7 % (42.0-52.0); Hemoglobin 10.8 g/dl (14.0-18.0); Imm Gran Abs Auto 0.03 X10*3/uL (0.00-0.03); Imm Gran Pct Auto 0.4 % (0.0-0.4); Lymphocytes Absolute Auto 0.5 X10*3/uL (1.2-4.9); Lymphocytes Percent Auto 6.1 % (20-40); Mean Corpuscular HGB Conc 34.1 g/dl (31.0-36.0); Mean Corpuscular Hemoglobin 30.5 pg (27.0-33.0); Mean Corpuscular Volume 89.5 fL (80.0-98.0); Mean Platelet Volume 11.4 fL (9.4-12.4); Monocytes Absolute Auto 0.4 X10*3/uL (0.1-1.2); Monocytes Percent Auto 5.5 % (2-11); Neutrophils Absolute Auto 6.6 x10*3/uL (2.0-8.3); Neutrophils Percent Auto 86.9 % (45-73); Platelet Count 293 X10*3/uL (160-400); Red Blood Count 3.54 X10*6/uL (4.60-5.80); Red Cell Distribution Width 12.4 % (11.0-16.0); White Blood Count 7.6 X10*3/uL (4.8-10.8)
[2022-04-19 07:51] VITALS: BP 118/75; PULSE 105; RESP 20; TEMP 36.6; O2SAT 98
[2022-04-19] MEDS: Multivitamin TABLET 1 TAB PO (08:56)
[2022-04-19] MEDS: 0.9 % Sodium Chloride Flush 3 ML SYRINGE IVFLUSH (08:56)
--- NOTE | 2022-04-19 11:35 | MHC.CM.PN ---
pt is covid positive unsble to interview pt called his cell and the room pt is expected to dc todfay per md ..no servcies indicated chart reviewed
[2022-04-19 12:00] VITALS: BP 136/71; PULSE 111; RESP 18; TEMP 37.2; O2SAT 98
--- NOTE | 2022-04-19 12:30 | PM.DS ---
DS: Providers Provider Date of Service: 04/19/22 Date of admission: 04/18/22 14:33 Date of discharge: 04/19/22 Primary care physician: None Physician Admitting clinician: Hayde Sawant Attending physician on admission: Leighton Cristobal Consults: 04/18/22 12:43 Consult to Thoracic Surgery Stat Consulting Provider: Shauna Ryan Reason for consultation: Spontaneous pneumothorax 04/18/22 14:37 Consult to Pulmonology Routine Consulting Provider: Jose Silverman Reason for consultation: hydropneumothorax chest tube management 04/18/22 17:37 Consult to Infectious Diseases Routine Consulting Provider: Shantel Blanchard Reason for consultation: covid positive Attending physician on discharge: Hayde Sawant Discharging clinician: Philip Knox DS: Diagnosis Discharge Diagnosis (1) Spontaneous pneumothorax: Status: Acute (2) COVID-19: Status: Acute DS: Summary Hospital Course Hospital Course: HPI on admission 04/18/22 31 year old male without significant medical history but who is a current everyday cigarette and occassional MJ smoker presented to the ED this am complaining right arm paresthesias and substernal chest ache radiating to right side that came on suddenly this morning. There is also a cough with clear sputum production. On arrival pt tachycardia to 112, tachypneic to 27, no hypoxia but started on 6L O2 via NC. Heme studies showed normocytic anemia 10.9/32.2%. Renal and hepatic function normal with stable lytes. D Dimer borderline at 225. CXR showed moderate right pneumothorax. He denies any recent injury, no hx chronic lung disease, does smoke 0.5ppd and smokes MJ occassionally. No illicit drug use. Pigtail chest tube 14 placed with repeat CXR showing full resolution of pneumothorax. CTA ordered due to borderline D-Dimer and clinical presentation which is still pending. Positive for COVID-19, negative influenza. Trop <3.5. EKG Sinus tach, rate [address]/T wave abnormality. No fevers, chills, nasal congestion, sore throat, runny nose, nausea/vomiting, abdominal pain, myalgia, constipation, shortness of breath or lightheadedness. Does endorse 8+ episodes watery diarrhea ongoing several month. No blood in the stool. No recent travel. Hospital Course: Pt observed overnight following 14 Irish pigtail chest tube placement with follow up chest CTA showing right barely perceptible tiny residual pneumothorax as well as COPD wtih apical blebs, as well as 2 adjacent 7mm right upper lobe pulmonary nodules. Negative for PE. Guidlines recommend follow up CT for multiple solid lung nodule 6-8mm at 3-6 months, then another at 18-24 months. However, guidelines are written for patient >35. Follow up as clinically warranted advised. Follow CXR showing stable trace pneumothorax. Patient was weened off oxygen without hypoxia. Patient followed by pulmonology and thoracic surgery. Chest tube removed Etiology of spontaneous pneumothorax is most likely related to body habitus and cigarette smoking. The patient was counseled on smoking cessation and declines NRT with intention to quit cold turkey. MJ cessation advised as well. Much less likely etiology is HIV as patient is at higher risk due to multiple male sexual partners in the last 6 months. He denies any symptoms at this time. Declines HIV testing at this time but is agreeable to outpt testing for routine screening which is ordered. He should follow up with PCP in 3 days. Time Spent with Patient Time attestation: Total time spent providing and/or coordinating discharge services: Physical Exam Vital Signs: Vital Signs: Last Vital Signs Temp 98 F 04/19/22 07:51 Pulse 105 H 04/19/22 07:51 Resp 20 04/19/22 07:51 BP 118/75 04/19/22 07:51 Pulse Ox 98 04/19/22 07:51 O2 Del Method 04/19/22 07:51 O2 Flow Rate 2 04/19/22 03:02 Oxygen Flow Rate 6 04/18/22 13:10 BMI result Body Mass Index 20.5 DS: Data Data Completed and Pending Labs on day of discharge: Laboratory Results - last 24 hr 04/18/22 04/18/22 04/19/22 12:19 12:25 06:46 WBC 7.6 RBC 3.54 L Hgb 10.8 L Hct 31.7 L MCV 89.5 MCH 30.5 MCHC 34.1 RDW 12.4 Plt Count 293 MPV 11.4 Immature Gran % (Auto) 0.4 Neut % (Auto) 86.9 H Lymph % (Auto) 6.1 L [place] % (Auto) 5.5 Eos % (Auto) 0.8 Baso % (Auto) 0.3 Lymph # (Auto) 0.5 L [place] # (Auto) 0.4 Eos # (Auto) 0.1 Baso # (Auto) 0.0 Abs Immat Gran (auto) 0.03 Absolute Neuts (auto) 6.6 Absolute Nucleated RBC 0.000 Nucleated RBC % (auto) 0.0 Sodium 139 Potassium 4.3 Chloride 106 Carbon Dioxide 25 Anion Gap 12 BUN 8 L Creatinine 0.66 Estim Creat Clear Calc 135.2 Estimated GFR > 60 Random Glucose 93 Calcium 8.3 L Total Bilirubin 0.4 AST 20 ALT 12 Alkaline Phosphatase 51 Total Protein 7.3 Albumin 3.1 L Influenza Type A (HILARIO) Negative Influenza Type B (HILARIO) Negative Influenza A & B Note See Note Discharge Plan Discharge Referrals: Physician,None [Primary Care Provider] - 1 Week Discharge Medications: No Action multivitamin Tablet 1 tab PO DAILY
--- NOTE | 2022-04-19 14:11 | HO.PM.IMPN ---
Subjective Subjective Date of Service: 04/19/22 Interval History: Seen in follow up for spontaneous pneumothorax Interval history: Denies sob, cp. Feeling well. Tolerating chest tube with minimal discomfort initially. However, pneumothorax recurred. Pt now reporting 9/10 chest pain around new chest tube. Review of Systems General: No fevers, malaise, unintentional weight loss Cardiovascular: No chest pain, palpitations, or leg edema Respiratory: No shortness of breath, wheezing, cough GI: No abdominal pain, nausea, vomiting, diarrhea, constipation, melena, hematochezia Neuro: No headaches, weakness, paresthesias Skin: No rashes or lesions Physical Exam Vital Signs: Vital Signs: Last Vital Signs Temp 99 F 04/19/22 12:00 Pulse 111 H 04/19/22 12:00 Resp 18 04/19/22 12:00 BP 136/71 04/19/22 12:00 Pulse Ox 98 04/19/22 12:00 O2 Del Method 04/19/22 12:00 O2 Flow Rate 2 04/19/22 03:02 Oxygen Flow Rate 6 04/18/22 13:10 BMI result Body Mass Index 20.5 Constitutional - Awake and Alert, No apparent distress Eyes - PERRLA, EOMI Cardiovascular - S1S2, RRR, No edema Respiratory - Normal lung expansion, Normal respiratory effort, No respiratory distress, CTA bilaterally. Pigtail chest tube in place without drainage covered by bandage Gastrointestinal - NT / ND; +BS; No rebound or guarding Extremities - no calf tenderness bilaterally, no swelling Skin - Warm/Dry Neurological - Alert & oriented x3, No focal deficit Psychological - Appropriate affect Objective Data Active Medications Acetaminophen (Acetaminophen 325 Mg Tablet) 650 mg PO Q6H PRN PRN Reason: Pain, Mild (Pain Scale 1-3) Last Admin: 04/19/22 01:46 Dose: 650 mg Documented By: LY Docusate Sodium (Docusate Sodium 100 Mg Capsule) 100 mg PO DAILY PRN PRN Reason: Constipation Enoxaparin Sodium (Enoxaparin Sodium 40 Mg/0.4 Ml Syringe) 40 mg SUBCUT Q24H [facility] Last Admin: 04/18/22 17:35 Dose: 40 mg Documented By: MAIRA Guaifenesin (Guaifenesin 200 Mg/10 Ml 10 Ml Liquid) 10 ml PO Q6H PRN PRN Reason: Cough Multivitamins/Vitamin C (Multivitamin Tablet) 1 tab PO DAILY [facility] Last Admin: 04/19/22 08:56 Dose: 1 tab Documented By: MADDY Ondansetron HCl (Ondansetron Hcl 4 Mg/2 Ml Vial) 4 mg IVPUSH Q8H PRN PRN Reason: Nausea and Vomiting Pharmacy Consult (Consult Rx Perform Med Rec) 1 each MISCELLANE ONCE PRN PRN Reason: Consult order Sodium Chloride (0.9 % Sodium Chloride Flush 3 Ml Syringe) 3 ml IVFLUSH QSHIFT [facility] Last Admin: 04/19/22 08:56 Dose: 3 ml Documented By: MADDY Labs CBC & Chem 7: 04/19/22 06:46 04/18/22 12:19 Labs: Laboratory Results - last 24 hr 04/19/22 06:46 MCV 89.5 MCH 30.5 MCHC 34.1 RDW 12.4 Plt Count 293 MPV 11.4 Immature Gran % (Auto) 0.4 Neut % (Auto) 86.9 H Lymph % (Auto) 6.1 L [place] % (Auto) 5.5 Eos % (Auto) 0.8 Baso % (Auto) 0.3 Lymph # (Auto) 0.5 L [place] # (Auto) 0.4 Eos # (Auto) 0.1 Baso # (Auto) 0.0 Abs Immat Gran (auto) 0.03 Absolute Neuts (auto) 6.6 Absolute Nucleated RBC 0.000 Nucleated RBC % (auto) 0.0 Assessment and Plan (1) Spontaneous pneumothorax: Status: Acute (2) COVID-19: Status: Acute Plan 31 year old male without significant medical history but who is a current everyday cigarette and MJ smoker admitted for spontaneous pneumothorax and COVID-19. #Spontaneous pneumothorax -most likely secondary to habitus and smoking hx. CTA shows COPD and blebs -However pt also with multiple male sexual partners at risk for HIV, less likely cause however. Refuses HIV testing inhouse. Agreeable to oupt testing -Recurrence of right-sided pneumothorax this afternoon -Chest tube replaced with 14 romansh pigtail by pulm -Pulm to follow -Repeat CXRs to assess for stability/recurrence -Oxycodone for pain #COVID-19- asymptomatic -not high risk patient -Antivirals and steroids not indicated -Symptomatic treatment with guaifenesin, albuterol, po hydration -Droplet/contact precautions #Sinus tachycardia -No PE on chest CTA -Likely secondary to pneumothorax with chest tube placement -Continue telemetry #Pulmonary nodules -2 7mm adjacent nodules -OUtpt follow up advised with repeat CT in 3-6 months, and another in 18-24 months # diarrhea-resolved -Stool studies canceled #Current everyday smoker -NRT with patches -Cigarette and MJ cessation counseling DVT proph- lovenox Full code Pt requires ongoing inpt stay due to recurrence of spontaneous pneumothorax requiring replacement of chest tube with close monitoring of serial CXR to assess for recurrence Quality Stroke Does the patient have a stroke diagnosis?: No VTE Prior VTE?: No VTE Risk Level:: Medical - moderate - high VTE Device Contraindication: Treatment Not Indicated VTE Drug Contraindication: N/A - Med Ordered
[2022-04-19] MEDS: oxyCODONE HCl Immed Release 5 MG TABLET PO (14:52)
[2022-04-19] MEDS: Enoxaparin Sodium 40 MG/0.4 ML SYRINGE SUBCUT (14:52)
[2022-04-19 16:00] VITALS: BP 129/81; PULSE 110; RESP 14; TEMP 37.2; O2SAT 98
[2022-04-19 19:22] VITALS: BP 119/75; PULSE 113; RESP 18; TEMP 38.9; O2SAT 96
[2022-04-20] VITALS (7 sets, daily range): BP systolic 115–134; BP diastolic 60–84; PULSE 75–114; RESP 14–20; TEMP 36.1–38.5; O2SAT 94–98
[2022-04-20] MEDS: oxyCODONE HCl Immed Release 5 MG TABLET PO (00:09)
[2022-04-20] MEDS: 0.9 % Sodium Chloride Flush 3 ML SYRINGE IVFLUSH ×3 (00:10→16:16)
[2022-04-20] MEDS: Acetaminophen 325 MG TABLET 650 MG PO ×2 (00:44→18:09)
[2022-04-20] MEDS: Multivitamin TABLET 1 TAB PO (08:58)
--- NOTE | 2022-04-20 11:41 | P.PNIM_ITS ---
Subjective Subjective Date of Service: 04/20/22 Interval History: Seen in follow up for spontaneous pneumothorax Interval history: Denies sob. Feeling well. Tolerating new chest tube with mild right upper chest discomfort with deep inspiration. Review of Systems General: No fevers, malaise, unintentional weight loss Cardiovascular: No chest pain, palpitations, or leg edema Respiratory: No shortness of breath, wheezing, cough GI: No abdominal pain, nausea, vomiting, diarrhea, constipation, melena, hematochezia MSK: right anterior chest pain Neuro: No headaches, weakness, paresthesias Skin: No rashes or lesions Physical Exam Vital Signs: Vital Signs: Last Vital Signs Temp 99.6 F 04/20/22 08:00 Pulse 114 H 04/20/22 08:00 Resp 20 04/20/22 08:00 BP 121/69 04/20/22 08:00 Pulse Ox 94 04/20/22 08:00 O2 Del Method 04/20/22 08:00 O2 Flow Rate 3 04/20/22 04:00 Oxygen Flow Rate 6 04/18/22 13:10 BMI result Body Mass Index 20.5 Constitutional - Awake and Alert, No apparent distress Eyes - PERRLA, EOMI Cardiovascular - S1S2, RRR, No edema Respiratory - Normal lung expansion, Normal respiratory effort, No respiratory distress, Scattered crackles b/l. Pigtail chest tube in place without drainage covered by bandage Chest: Mild ttp right chest Gastrointestinal - NT / ND; +BS; No rebound or guarding Extremities - no calf tenderness bilaterally, no swelling Skin - Warm/Dry Neurological - Alert & oriented x3, No focal deficit Psychological - Appropriate affect Objective Data Active Medications Acetaminophen (Acetaminophen 325 Mg Tablet) 650 mg PO Q6H PRN PRN Reason: Pain, Mild (Pain Scale 1-3) Last Admin: 04/20/22 00:44 Dose: 650 mg Documented By: MARY Docusate Sodium (Docusate Sodium 100 Mg Capsule) 100 mg PO DAILY PRN PRN Reason: Constipation Enoxaparin Sodium (Enoxaparin Sodium 40 Mg/0.4 Ml Syringe) 40 mg SUBCUT Q24H [facility] Last Admin: 04/19/22 14:52 Dose: 40 mg Documented By: MADDY Guaifenesin (Guaifenesin 200 Mg/10 Ml 10 Ml Liquid) 10 ml PO Q6H PRN PRN Reason: Cough Multivitamins/Vitamin C (Multivitamin Tablet) 1 tab PO DAILY [facility] Last Admin: 04/20/22 08:58 Dose: 1 tab Documented By: MADDY Ondansetron HCl (Ondansetron Hcl 4 Mg/2 Ml Vial) 4 mg IVPUSH Q8H PRN PRN Reason: Nausea and Vomiting Pharmacy Consult (Consult Rx Perform Med Rec) 1 each MISCELLANE ONCE PRN PRN Reason: Consult order Sodium Chloride (0.9 % Sodium Chloride Flush 3 Ml Syringe) 3 ml IVFLUSH QSHIFT [facility] Last Admin: 04/20/22 08:58 Dose: 3 ml Documented By: MADDY Labs CBC & Chem 7: 04/19/22 06:46 04/18/22 12:19 Assessment and Plan (1) Spontaneous pneumothorax: Status: Acute (2) COVID-19: Status: Acute Plan 31 year old male without significant medical history but who is a current everyday cigarette and MJ smoker admitted for spontaneous pneumothorax and CO VID-19. #Spontaneous pneumothorax -most likely secondary to habitus and smoking hx. CTA shows COPD and blebs -spontaneous pneumothorax recurred yesterday. Chest x-ray today showing very small pneumothorax. -However pt also with multiple male sexual partners at risk for HIV, less likely cause however. Refuses HIV testing inhouse. Agreeable to oupt testing -Chest tube clamped and subsequently removed by pulm. No hypoxia on RA. -Discussed with Dr. Loza. Observe one more night to ensure no recurrence with repeat CXR am. -Discharge tomorrow if stable. -tylenol for pain #COVID-19- asymptomatic -not high risk patient -Antivirals and steroids not indicated -Symptomatic treatment with guaifenesin, albuterol, po hydration -Droplet/contact precautions #Sinus tachycardia -No PE on chest CTA -Likely secondary to pneumothorax with chest tube placement -Continue telemetry #Pulmonary nodules -2 7mm adjacent nodules -OUtpt follow up advised with repeat CT in 3-6 months, and another in 18-24 mon ths # diarrhea-resolved -Stool studies canceled #Current everyday smoker -NRT with patches -Cigarette and MJ cessation counseling DVT proph- lovenox Full code Pt requires ongoing inpt stay due to recurrence of spontaneous pneumothorax requiring replacement of chest tube with close monitoring of serial CXR to assess for recurrence Quality Stroke Does the patient have a stroke diagnosis?: No VTE Prior VTE?: No VTE Risk Level:: Medical - moderate - high VTE Device Contraindication: Treatment Not Indicated VTE Drug Contraindication: N/A - Med Ordered
--- NOTE | 2022-04-20 13:03 | P.PNPL_ITS ---
Subjective Subjective Date of Service: 04/20/22 Interval history: Patient had had his chest tube clamped yesterday, however his pneumothorax worsened and chest tube was placed back on water seal. Today, after clamping, no changes in the size of pneumothorax. Chest tube removed. Objective Data Labs CBC & Chem 7: 04/19/22 06:46 04/18/22 12:19 Review of Systems Cardiovascular: Denies chest pain, Denies dyspnea and Denies dyspnea on exertion Respiratory: Denies cough, Denies dyspnea and Denies dyspnea on exertion Physical Exam Vital Signs: Vital Signs: Last Vital Signs Temp 99.6 F 04/20/22 08:00 Pulse 114 H 04/20/22 08:00 Resp 20 04/20/22 08:00 BP 121/69 04/20/22 08:00 Pulse Ox 94 04/20/22 08:00 O2 Del Method 04/20/22 08:00 O2 Flow Rate 3 04/20/22 04:00 Oxygen Flow Rate 6 04/18/22 13:10 BMI result Body Mass Index 20.5 Const: General: no acute distress, alert and awake Eyes: Sclerae: sclerae normal EOM: EOMs intact bilaterally Neck: Neck: Yes no lymphadenopathy, Yes trachea midline and Yes supple Resp: Effort & Inspection: normal respiratory effort and no respiratory distress Auscultation: clear to auscultation bilaterally Cardio: Rate: tachycardic Rhythm: regular rhythm Heart sounds: no gallop s, no murmurs and no rubs GI: Palpation (GI): Soft to palpation and Other GI palpation findings present ( Nontender) Auscultation: normal bowel sounds Extrem: General: Yes no pedal edema, No clubbing and No cyanosis Procedures Date of Service Date of Service: 04/20/22 Assessment and Plan Assessment and plan (1) COVID-19: Status: Acute (2) Spontaneous pneumothorax: Status: Acute Plan Impression/recommendations: 31-year-old gentleman with COVID and spontaneous right-sided pneumothorax status post chest tube placement. No change in the size of per residual right-sided pneumothorax with clamping today. Chest tube removed. Time Spent With Patient Time: Total time spent is greater than 50% in coordination of care (as documented) at patient's floor/unit and/or counseling patient: Progress Note: Quality Stroke Does the patient have a stroke diagnosis?: No
[2022-04-20] MEDS: Enoxaparin Sodium 40 MG/0.4 ML SYRINGE SUBCUT (16:16)
[2022-04-20] MEDS: Ibuprofen 600 MG TABLET PO (18:09)
--- NOTE | 2022-04-21 | ECG_ITS ---
Test Reason : chest pain Blood Pressure : / mmHG Vent. Rate : 126 BPM Atrial Rate : 126 BPM P-R Int : 158 ms QRS Dur : 078 ms QT Int : 308 ms P-R-T Axes : 082 083 091 degrees QTc Int : 446 ms Sinus tachycardia T wave abnormality, consider lateral ischemia Abnormal ECG When compared with ECG of 18-APR-2022 12:30, Nonspecific T wave abnormality now evident in Inferior leads T wave inversion now evident in Anterolateral leads Referred By: Pipo Lazaro Electronically Signed By:HENRY BROWN MD
[2022-04-21] MEDS: 0.9 % Sodium Chloride Flush 3 ML SYRINGE IVFLUSH ×2 (00:50→08:54)
[2022-04-21 03:02] VITALS: BP 116/74; PULSE 93; RESP 16; TEMP 36.8; O2SAT 96
[2022-04-21 08:00] VITALS: BP 126/76; PULSE 124; RESP 20; TEMP 37.9; O2SAT 96
[2022-04-21] MEDS: Acetaminophen 325 MG TABLET 650 MG PO (08:54)
[2022-04-21] MEDS: Multivitamin TABLET 1 TAB PO (08:54)
--- NOTE | 2022-04-21 11:00 | P.DS_ITS ---
DS: Providers Provider Date of Service: 04/21/22 Date of admission: 04/18/22 14:33 Primary care physician: None Physician Consults: 04/18/22 12:43 Consult to Thoracic Surgery Stat Consulting Provider: Shauna Ryan Reason for consultation: Spontaneous pneumothorax 04/18/22 14:37 Consult to Pulmonology Routine Consulting Provider: Jose Silverman Reason for consultation: hydropneumothorax chest tube management 04/18/22 17:37 Consult to Infectious Diseases Routine Consulting Provider: Shantel Blanchard Reason for consultation: covid positive DS: Diagnosis Discharge Diagnosis (1) Spontaneous pneumothorax: Status: Acute (2) COVID-19: Status: Acute DS: Summary Hospital Course Hospital Course: HPI on admission 04/18/22 31 year old male without significant medical history but who is a current everyday cigarette and occassional MJ smoker presented to the ED this am complaining right arm paresthesias and substernal chest ache radiating to right side that came on suddenly this morning. There is also a cough with clear sputum production. On arrival pt tachycardia to 112, tachypneic to 27, no hypoxia but started on 6L O2 via NC. Heme studies showed normocytic anemia 10.9/32.2%. Renal and hepatic function normal with stable lytes. D Dimer borderline at 225. CXR showed moderate right pneumothorax. He denies any recent injury, no hx chronic lung disease, does smoke 0.5ppd and smokes MJ occassionally. No illicit drug use. Pigtail chest tube 14 placed with repeat CXR showing full resolution of pneumothorax. CTA ordered due to borderline D-Dimer and clinical presentation which is still pending. Positive for COVID-19, negative influenza. Trop <3.5. EKG Sinus tach, rate [address]/T wave abnormality. No fevers, chills, nasal congestion, sore throat, runny nose, nausea/vomiting, abdominal pain, myalgia, constipation, shortness of breath or lightheadedness. Does endorse 8+ episodes watery diarrhea ongoing several month. No blood in the stool. No recent travel. Hospital Course: Pt observed overnight following 14 [place] pigtail chest tube placement with follow up chest CTA showing right barely perceptible tiny residual pneumotho rax as well as COPD wtih apical blebs, as well as 2 adjacent 7mm right upper lobe pulmonary nodules. Negative for PE. Guidlines recommend follow up CT for multiple solid lung nodule 6-8mm at 3-6 months, then another at 18-24 months. However, guidelines are written for patient >35. Follow up as clinically warranted advised. Patient was weaned off oxygen without hypoxia. Patient followed by pulmonology and thoracic surgery. Chest tube removed and symptoms improved. Repeat CXR prior to discharge showing slight interval increase in size of small right apical pneumothorax after chest tube removal. Discussed with pulmonology, Dr. Silverman who recommends outpatient follow-up and suggests patient is stable to be discharged as the pneumothorax is tiny. Etiology of spontaneous pneumothorax is most likely related to body habitus and cigarette smoking. The patient was counseled on smoking cessation and declines NRT with intention to quit cold turkey. MJ cessation advised as well. Much less likely etiology is HIV as patient is at higher risk due to multiple male sexual partners in the last 6 months. He denies any symptoms at this time. Declines HIV testing at this time but is agreeable to outpt testing for routine screening which is ordered. He should follow up with PCP in 3 days. Sinus tachycardia: Likely secondary to pneumothorax. Monitor outpatient Time spent discussing smoking cessation with patient: 3 to 10 minutes Status at Discharge Functional status at discharge: independent ambulation Overall status at discharge: patient is back to baseline Time Spent with Patient Time attestation: Total time spent providing and/or coordinating discharge services: Discharge coordination time: Less than 30 minutes Quality: Safe Use of Opioids Does Pt have an Active Cancer Diagnosis on the Problem List?: No Quality: Stroke Does the patient have a stroke diagnosis?: No Physical Exam Vital Signs: Vital Signs: Last Vital Signs Temp 100.3 F 04/21/22 08:00 Pulse 124 H 04/21/22 08:00 Resp 20 04/21/22 08:00 BP 126/76 04/21/22 08:00 Pulse Ox 96 04/21/22 08:00 O2 Del Method 04/21/22 08:00 O2 Flow Rate 3 04/20/22 04:00 Oxygen Flow Rate 6 04/18/22 13:10 BMI result Body Mass Index 20.5 Middle-aged male lying in bed in no distress Neck supple, no JVD Sinus tachycardia, S1-S2 heard Regular breath sounds bilaterally, no wheezing or crackles appreciated Abdomen soft nontender, no guarding, no rigidity Patient is awake, alert and oriented to self, place, time and person ; no focal motor deficit Psych: Normal mood No pedal edema DS: Data Imaging Chest x-ray: Radiologist's impression: ITS Impressions Chest X-Ray 04/18/22 10:20 IMPRESSION: Moderate-sized right hydropneumothorax. This critical result was discussed with Michi Han at approximately 10:52 AM on 04/18/2022 and it was ascertained that the content and urgency of the report was understood at the time of direct communication. Chest X-Ray 04/18/22 11:55 IMPRESSION: Interval insertion of right chest tube with resolution of pneumothorax. Interval resolution of right pneumothorax status post placement of a chest catheter. The tip of the catheter overlies sixth posterior rib. Chest CTA 04/18/22 15:06 IMPRESSION: 1. No evidence of pulmonary emboli 2. COPD with apical blebs. 3. Chest tube in place in the right barely perceptible tiny residual pneumothorax. 4. 2 adjacent 7mm right upper lobe pulmonary nodules 2017 Fleischner Society Recommendations for Lung Nodule(s): Follow-Up based on size (average of long- and short-axis diameters). Use most suspicious nodule for followup. Multiple Solid lung nodules 6-8 mm: Follow up management based on most suspicious nodule. In a low-risk patient, recommend a non-contrast Chest CT at 3-6 months, then consider another non-contrast Chest CT at 18-24 months. In a high-risk patient, recommend a non-contrast Chest CT at 3-6 months, then another non-contrast Chest CT at 18-24 months. These guidelines do not apply to patients younger than 35 years, immunocompromised patients, and patients with cancer. F/u in patients with significant comorbidities as clinically warranted. For lung cancer screening, adhere to Lung-RADS guidelines. Reference: Radiology. 2017 Familia; 284(1):228-243 VTE: negative Chest X-Ray 04/19/22 06:07 IMPRESSION: Stable trace right pneumothorax and bilateral patchy airspace opacities, more pronounced on the left Chest X-Ray 04/19/22 12:22 IMPRESSION: Status post clamping of chest tube there is a recurrent pneumothorax at least 10%. Chest X-Ray 04/20/22 08:46 IMPRESSION: Interval decrease in size of right pneumothorax with right chest tube in place. Chest X-Ray 04/20/22 12:20 IMPRESSION: Diminished pneumothorax on the right, stable position of pigtail catheter. Newly developed left lower lobe patchy airspace disease Chest X-Ray 04/21/22 07:34 IMPRESSION: Slight interval increase in size of small right apical pneumothorax after right-sided chest tube removal. This critical result was discussed with Tejas GARCIA by telephone at 04/21/2022 10:42 AM and it was ascertained that the content and urgency of the report was understood at the time of direct communication. Discharge Plan Discharge Anticipated Discharge Date/Time: 04/21/22 11:30 Patient Disposition: Home, Self-Care Discharge Diagnosis: Spontaneous pneumothorax Referrals: Physician,None [Primary Care Provider] - 1 Week Discharge Medications: Continued multivitamin Tablet 1 tab PO DAILY Discharge Orders: Discharge Order (Routine); Ordered 04/21/22 Ordered By: Asia Lazaro Diet: Regular diet Activity on Discharge: As tolerated Stand Alone Forms: Patient Portal Discharge page Care Plan Goals: Follow-up with PCP within 3-4 days for repeat chest x-ray Health Concerns: Spontaneous recurrent pneumothorax Plan of Treatment: Recommend outpatient HIV testing Repeat chest x-ray outpatient in 3-4 days Assessment: As per summary
--- NOTE | 2022-04-21 11:45 | MHC.CM.PN ---
Male 31 DX Covid Hydropneumothorax Patient is discharged today to home self care. Patient will arrange for transportation home.
--- NOTE | 2022-04-21 12:01 | PC.NURSE ---
Alert and oriented. Denies pain, VSS, afebrile, no acute resp. distress noted. Right sided chest tube site dressing CDI. Chest x-ray completed. patient medically clear for discharge. went over discharge instructions, follow up apt and medication administrations with patient. Verbalized understanding back. Ambulated to the lobby independently (refused human resources office assistant) left via car.
[2022-04-22 16:48] LABS: Alpha 1 Anti-trypsin 181 mg/dL (83-199)
== END 2022-04-21 11:55 | disposition home or self-care (01) | DRG 199 ==
LOC: HO.ED 12:49 → HO.EDOVER 14:39 → HO.IMC 17:35
PROVIDERS: Physician Assistant; Admitting Provider Physician Assistant; Emergency Provider Emergency Medicine; Visit Provider Student in an Organized Health Care Education/Training Program
DX: J93.83 Other pneumothorax (principal); U07.1 COVID-19; J44.9 Chronic obstructive pulmonary disease, unspecified; D64.9 Anemia, unspecified; F17.210 Nicotine dependence, cigarettes, uncomplicated; R19.7 Diarrhea, unspecified; R91.8 Other nonspecific abnormal finding of lung field; R00.0 Tachycardia, unspecified
CPT/HCPCS: 36415; 71045; 71275; 80053; 82103; 84484; 85025; 85379; 87502; 87635; 93005; 99285; J1650; J2250; J2405; J3010; Q9967

== ENCOUNTER 2022-04-30 01:19 | Inpatient (IN) | payer MEDICAID, SELFPAY ==
[2022-04-30] VITALS (10 sets, daily range): BP systolic 94–123; BP diastolic 48–80; PULSE 97–155; RESP 18–37; TEMP 36.3–39.4; O2SAT 93–99; BMI 19.3
--- NOTE | ~2022-04-30 | XR_ITS ---
EXAMINATION: XR CHEST CLINICAL INFORMATION: Chest pain COMPARISON: 04/21/2022 TECHNIQUE: Frontal view of the chest was obtained. FINDINGS: The lungs are hyperinflated. No focal consolidation is seen. Coarsened appearance of the interstitium is noted. Small right apical pneumothorax has decreased in size since 04/21/2022. No appreciable pleural effusion. The cardiomediastinal contour is unremarkable. No acute osseous findings are seen. XR/XR chest 1V IMPRESSION: Small right apical pneumothorax, decreased from 04/21/2022. Coarsened appearance of the interstitium may reflect airways disease.
--- NOTE | ~2022-04-30 | CT_ITS ---
EXAMINATION: CT ANGIOGRAM OF THE CHEST WITH AND WITHOUT CONTRAST (CT PULMONARY ANGIOGRAM FOR PE) CLINICAL INFORMATION: Reason for Exam r/o PE, recovering R pneumothorax COMPARISON: Chest x-ray 04/29/2022, CT 04/18/2022 TECHNIQUE: Prior to contrast administration, noncontrast localization images were obtained. Subsequently, multidetector volumetric imaging was performed from the thoracic inlet to below the diaphragms following the administration of 65 mL Omnipaque 350 intravenous contrast. No contrast reaction reported Sagittal, coronal, and MIP oblique sagittal reformatted images were obtained on the CT workstation, uploaded to PACS, and reviewed. This CT examination was performed using dose optimization techniques as appropriate, variously including the following: *Automated exposure control *Adjustment of mA and/or kV according to patient size (this includes techniques or standardized protocols for targeted exams where dose is matched to indication/reason for exam; i.e. extremities or head) *Use of iterative reconstruction technique Total exam dose-length product 247 mGy-cm FINDINGS: QUALITY OF STUDY/CONTRAST BOLUS: Satisfactory. PULMONARY ARTERIES: No filling defects are seen in the main, lobar, or segmental pulmonary arteries to suggest the presence of pulmonary emboli. However, assessment of the distal vasculature is limited in some regions due to respiratory motion artifact. THORACIC AORTA: No aneurysm or dissection. LUNG: There are moderately extensive regions of groundglass opacity bilaterally, worsened from prior CT. Upper lobe predominant paraseptal emphysema is noted. There is suspected tree-in-bud type nodularity in the basilar lower lobes, right middle lobe, and posterior right upper lobe, though this is suboptimally assessed in some regions due to respiratory motion artifact. There is bronchial wall thickening and some mucoid impaction in the bilateral lower lobes PLEURA: Small right pneumothorax. No pleural effusion. MEDIASTINUM: The visualized thyroid gland is unremarkable. No discrete mediastinal lymphadenopathy is seen. Cardiac size is within normal limits; no pericardial effusion. CHEST WALL/AXILLA: No axillary or internal mammary lymphadenopathy. OSSEOUS STRUCTURES: No acute or suspicious osseous abnormality. UPPER ABDOMEN: Unremarkable. No reflux of contrast into the hepatic veins to suggest elevated right heart pressures. CT/CT angio chest PE protocol IMPRESSION: 1. No pulmonary embolus identified. 2. Small right pneumothorax, in keeping with appearance on recent chest x-ray. 3. Moderately extensive groundglass opacities bilaterally, worsened from 04/18/2022. In the proper clinical setting, this could be secondary to pneumonia (including Covid pneumonia) or edema. 4. Suspected tree-in-bud type nodularity in the basilar lower lobes, right middle lobe, and posterior right upper lobe, which may be infectious/inflammatory or secondary to aspiration. 5. Bronchial wall thickening and some mucoid impaction in the bilateral lower lobes. VTE: negative
--- NOTE | ~2022-04-30 | XR_ITS ---
EXAMINATION: XR chest 1V CLINICAL INFORMATION: Reason for Exam pneumothorax COMPARISON: Chest radiograph 05/01/2022 CT chest 04/30/2022 TECHNIQUE: One view of the chest FINDINGS: No definite residual right sided pneumothorax appreciated. Similar appearance of hazy ill-defined airspace opacities, which may be secondary to infection or edema. No pleural effusion. Normal cardiomediastinal silhouette. XR/XR chest 1V Impression: 1. No definite residual right sided pneumothorax appreciated. 2. Similar appearance of hazy ill-defined airspace opacities, which may be secondary to infection or edema.
--- NOTE | ~2022-04-30 | XR_ITS ---
EXAMINATION: XR CHEST CLINICAL INFORMATION: Follow-up pneumothorax COMPARISON: 04/30/2022 TECHNIQUE: Frontal view of the chest was obtained. FINDINGS: Since the prior study, the size of the right pneumothorax has decreased with only a tiny area remaining. Previously the distance between the pleural surface in the ribs at the level of the mid to upper scapula was 1.0 cm and on today's study this is 0.3 cm. XR/XR chest 1V IMPRESSION: Decrease in size of right-sided pneumothorax with tiny pneumothorax remaining
--- NOTE | 2022-04-30 01:36 | ECG_ITS ---
Test Reason : chest pain Blood Pressure : / mmHG Vent. Rate : 150 BPM Atrial Rate : 150 BPM P-R Int : 128 ms QRS Dur : 072 ms QT Int : 240 ms P-R-T Axes : 083 095 077 degrees QTc Int : 379 ms Sinus tachycardia RSR' or QR pattern in V1 suggests right ventricular conduction delay Rightward axis Pulmonary disease pattern Abnormal ECG When compared with ECG of 21-APR-2022 10:21, Heart rate has increased T wave inversion no longer evident in Anterolateral leads Referred By: Generic ED Physician Electronically Signed By:HENRY BROWN MD
[2022-04-30] MEDS: Famotidine/PF 20 MG/2 ML VIAL IVPUSH (02:09)
[2022-04-30] MEDS: diphenhydrAMINE HCL 50 MG/ML VIAL IVPUSH (02:09)
[2022-04-30] MEDS: Acetaminophen 325 MG TABLET 975 MG PO (02:09)
[2022-04-30] MEDS: methylPREDNISolone Sod Succ 125 MG/2 ML VIAL IVPUSH (02:09)
[2022-04-30 02:10] LABS: MANUAL DIFF FLAG NO
[2022-04-30] MEDS: 0.9 % Sodium Chloride 2,000 ML 999 ML IVCONT (02:11)
[2022-04-30 02:12] LABS: Basophils Percent Auto 0.2 % (0-2); Eosinophils Percent Auto 0.3 % (0-4); Hematocrit 32.4 % (42.0-52.0); Hemoglobin 10.8 g/dl (14.0-18.0); Imm Gran Abs Auto 0.04 X10*3/uL (0.00-0.03); Imm Gran Pct Auto 0.4 % (0.0-0.4); Lymphocytes Absolute Auto 0.5 X10*3/uL (1.2-4.9); Lymphocytes Percent Auto 5.5 % (20-40); Mean Corpuscular HGB Conc 33.3 g/dl (31.0-36.0); Mean Corpuscular Hemoglobin 29.8 pg (27.0-33.0); Mean Corpuscular Volume 89.5 fL (80.0-98.0); Mean Platelet Volume 10.8 fL (9.4-12.4); Monocytes Absolute Auto 0.6 X10*3/uL (0.1-1.2); Monocytes Percent Auto 6.7 % (2-11); Neutrophils Absolute Auto 7.9 x10*3/uL (2.0-8.3); Neutrophils Percent Auto 86.9 % (45-73); Platelet Count 408 X10*3/uL (160-400); Red Blood Count 3.62 X10*6/uL (4.60-5.80); Red Cell Distribution Width 12.6 % (11.0-16.0); White Blood Count 9.1 X10*3/uL (4.8-10.8)
[2022-04-30 02:13] LABS: Venous Blood Gas Refer to POC result
[2022-04-30 02:14] LABS: VBG Base Excess -2.7 mmol/L; VBG HCO3 21 mmol/L (22-26); VBG pCO2 36 mmHg; VBG pH 7.38 (7.32-7.43); VBG pO2 33 mmHg
[2022-04-30 02:19] LABS: INTERNATIONAL NORM RATIO 1.1 (0.9-1.1); Prothrombin Time 12.2 SEC (10.0-13.1)
[2022-04-30 02:21] LABS: COVID-19 Test Positive (Negative)
[2022-04-30 02:23] LABS: Lactic Acid 1.4 mmol/L (0.5-2.0)
--- OUTSIDE RECORDS SUMMARY | 2022-04-30 02:23 | XMS_ITS ---
:1990 Author Care Team Providers Name Role Phone [facility] OTHER [phone] EVELINA HA MD Urologist [phone] MARGARET CHILD Orthopedic Surgeon [phone] MARRY MERCADO TIMBER SUPERVISOR Primary Care Provider [phone] Allergies Code Code System Name Reaction Severity Status Onset NKDA ? Medications Name Status Start Date Stop Date ? ? amoxicillin 875 mg tablet Completed ? 2018 amoxicillin 875 mg-potassium clavulanate 125 mg tablet Completed ? 01/05/2016 Take 1 tablet twice a day by oral route for 10 days. azithromycin 500 mg tablet Completed ? 08/05 Take 2 tablets by oral route once for 1 day. citalopram 20 mg tablet Completed ? 04/15/20 19 TAKE 1/2 po qd for 1 week and 1 TABLET BY MOUTH EVERY DAY cyclobenzaprine 5 mg tablet Completed ? 08/28 doxycycline hyclate 100 mg tablet Completed ? 05/10/2016 Take 1 tablet twice a day by oral route for 10 days. escitalopram 10 mg tablet Active ? Not av ailable Fluticasone Propionate (Inhal) 50 mcg/BLIST inhl powd Unknown 10/22/2013 Not available DAILY, EACH SIDE fluticasone propionate 50 mcg/actuation nasal spray,suspension C ompleted ? 08/09/2020 [place] 2 sprays every day by intranasal route each side for 90 d ays. gabapentin 300 mg capsule Completed ? 2016 ibuprofen Completed 02/26/2020 08/09/2020 400 mg , 1 tablet every 6 hours , prn for 5 days #20 ketoconazole 2 % shampoo Active ? Not karie ilable lorazepam 1 mg tablet Completed ? 09/05/2020 TAKE 1 TABLET BY MOUTH hs prn melatonin 5 mg tablet Active 02/08/2022 Not availa ble Take 1 tablet every day by oral route at bedtime. mometasone 50 mcg/actuation nasal spray Completed ? 08/09/2020 [place] 2 sprays every day by intranasal route as directed for 30 days. multivitamin tablet Completed ? 08/09/2020 Take 1 tablet every day by oral route. Multivitamins Completed ? 08/28/2016 mupirocin 2 % topical ointment Completed ? 0 08/09/2020 APPLY A SMALL AMOUNT TO THE AFFECTED AR EA BY TOPICAL ROUTE 3 TIMES PER DAY x 1 wk naproxen 250 mg tablet Completed ? 8 omeprazole 40 mg capsule,delayed release Completed ? 02/25/2017 Take 1 capsule every day by oral route for 30 days. oxycodone Completed 02/26/2020 08/09/2020 5mg , 1 tablet every 6 hours for 5 days #20 oxycodone-acetaminophen 5 mg-325 mg tablet Completed ? 10/09/2017 Polytrim 10,000 unit-1 mg/mL eye drops Completed ? 08/05/2018 INSTILL 1 DROP INTO AFFECTED EYE(S) BY OPHTHALMIC ROUTE EVERY 6 HOURS x 7-10 days prednisone 20 mg tablet Completed ? 08/29/19 17 sildenafil 50 mg tablet Active ? Not avai lable trazodone 50 mg tablet Completed ? 2 TAKE 1-2 TABLETS AT BEDTIME NEEDED FOR SLEEP triamcinolone acetonide 0.1 % topical cream Active ? Not available Tylenol 325 mg tablet Completed 02/26/2020 08/09/2020 Take 3 tablets every 6 hours by oral route as directed. valacyclovir 1 gram tablet Completed ? 10/20 Take 1 tablet twice a day by oral route as needed for 30 days. Request refill FOR COLD SORES Problems Name Status Onset Date Source ? Migraine Unknown 03/31/2013 ? Migraine Unknown 03/31/2013 ? History of Infectious Disease Unknown 03/31/2013 ? History of Infectious Disease Unknown 03/31/2013 ? Herpes Simplex Active 10/22/2013 ? Allergic Rhinitis Active 10/22/2013 ? Patient Status Finding Unknown 10/22/2013 ? Influenza Vaccine Needed Unknown 10/22/2013 ? Influenza Vaccine Needed Unknown 10/22/2013 ? Adult Health Examination Unknown 10/22/2013 ? Adult Health Examination Unknown 10/22/2013 ? Cardiomegaly Active 03/25/2016 ? Lumbar Radiculopathy Active 08/14/2016 ? Anxiety Active 10/09/2017 ? Right Cardiac Ventricular Dilatation Active 04/21/2018 ? Mixed Anxiety and Depressive Disorder Active 08/10/2020 ? Abnormal Weight Loss Active 08/10/2020 ? Severe Major Depression, Single Episode, without Active 09/29/2020 ? Psychotic Features Acute Sinusitis Unknown ? Encounter Gastritis Unknown ? Encounter Prostatitis Unknown ? Encounter Dysuria Unknown ? Encounter Procedures Date Name Performed by ? ? No Surg Proc W/in 30 Days Information no t available 03/28/2016 US, Echocardiogram [facility] (Outt Non-I nvasive Cardiology Scheduling) [address], [place] [address] (Work Place) 08/28/2016 MRI, Lumbar Spine, W/o Contrast [facility] ([facility] [address] [place], [place] [address] (Work Place) 12/17/2016 US, Testicle [facility] [address] (Ultrasound) [address], [place] [address] (Work Place) 08/05/2018 XR, Abdomen [facility] [address] (Ultrasound) [address], [place] [address] (Work Place) 01/18/2019 XR, Ankle [facility] [address], [place] [address] (Work Place) 10/23/2020 US, Scrotum [facility] [address] [address] (Work Place) Results Lab Results Date Name Specimen Result Interpretation Description Value Range Status Address ? 10/23/2020 Urinalysis Urine ? Appear/color ? ? Fi nal [facility] W/reflex Referenc e Culture Laborator ies: [address], [place] ? ? Urine ? Sp. [place] 1.025 (1.0 Final [facility] chen 07-31 Reference .030 Laboratori es: ) [address], [place] ? ? Urine ? Urine pH 6.0 (5.0 Final [place] -8.0 Reference ) Laboratori es: [address], [place] ? ? Urine ? Urine Albumin negative (neg Final [facility] ) Reference Laboratori es: [address], [place] ? ? Urine ? Urine Glucose negative (neg Final [facility] ) Reference Laboratori es: [address], [place] ? ? Urine ? Urine Ketones negative (neg Final [facility] ) Reference Laboratori es: [address], [place] ? ? Urine ? Urine negative (neg Final [facility] Bilirubin ) Referen ce Laboratori es: [address], [place] ? ? Urine ? Urine negative (neg Final [facility] Hemoglobin ) Refere nce Laboratori es: [address], [place] ? ? Urine ? Urine Nitrite negative (neg Final [facility] ) Reference Laboratori es: [address], [place] ? ? Urine ? Urine negative (neg Final [facility] Leukocyte ) Referen ce Laboratori es: [address], [place] ? ? Urine ? Urobilinogen normal (nor Final [place] [facility] mg/dL m) Reference mg/d Laboratori es: L [address], [place] ? ? Urine ? Urine Wbcs 1 /hpf (0-5 [facility] ) Reference /hpf Laboratori es: [address], [place] ? ? Urine ? Urine Rbcs <1 /hpf (0-3 [facility] ) Reference /hpf Laboratori es: [address], [place] ? ? Urine ? Mucus slight ? Final [place] /lpf Reference Laboratori es: [address], [place] ? ? Urine ? Clarity clear (manoj Final [facility] ar) Reference Laboratori es: [address], [place] ? ? Urine ? Culture culture ? Final [facility] Indication not Refere nce indicate Laborato karthik: d [address], [place] 10/23/2020 CT + NG DNA, Urine ? Urine ? (neg Final [facility] PCR, Urine Chlamydia Amp ) Reference Probe Laboratori es: [address], [place] ? ? Urine ? Urine GC Amp ? (neg Final [place] Probe ) Reference Laboratori es: [address], [place] 04/22/2019 Rapid Flu ? Flu a negative ? ? I n-Office (A+B) Order: Internal U se Only DO No t Attach Compendium DO Not Attach Compendium , Do Not Delete/tootie ge ? ? ? Flu B negative ? ? In-Offic e Order: Internal U se Only DO No t Attach Compendium DO Not Attach Compendium , Do Not Delete/tootie ge 11/20/2018 CT + NG DNA, Normal Urine ? (neg Final [place] PCR, Urine Chlamydia Amp ) Reference Probe Laboratori es: [address], [place] ? ? Normal Urine GC Amp ? (neg Final [place] Probe ) Reference Laboratori es: [address], [place] 06/17/2018 CT + NG DNA, ABNORMAL Urine ? (neg Final [place] PCR, Urine Chlamydia Amp ) Reference Probe Laboratori es: [address], [place] ? ? Normal Urine GC Amp ? (neg Final [facility] Probe ) Reference Laboratori es: [address], [place] 02/25/2017 RPR (Rapid ? Syphilis nonreact ? Iona l [facility] Plasma Screen by Amada blanca Ref erence Reagin), Laborato karthik: Titer, Serum [address], [place] ? ? ? RPR Titer not ? Final [facility] Result indicate Referenc e d Laboratori es: [address], [place] ? ? ? Tppa Result not ? Final [facility] indicate Referenc e d Laboratori es: [address], [place] ? ? ? Syphilis ? ? Final [facility] Interpretation Re ference Laboratori es: [address], [place] 02/25/2017 NG RNA, ? Urine ? (neg Final [facility] Urine Chlamydia Amp ) Ref erence Probe Laboratori es: [address], [place] ? ? ? Urine GC Amp ? (neg Final [place] Probe ) Reference Laboratori es: [address], [place] 02/25/2017 Hsv (1+2) ? Herpes Simplex 9.5 ? F inal [place] Igg Ab, 1 IgG Ab Referen ce Serum Laboratori es: [address], [place] ? ? ? Hsv 2 IgG Ab 0.13 ? Final [place] Reference Laboratori es: [address], [place] 02/25/2017 Hsv (1+2) ? Herpes Simplex ? ? [facility] Type 1/2 IgM Reference Laboratori es: [address], [place] 09/13/2016 Urinalysis, ? Appear/color ? ? F inal [facility] Complete Referenc e Laboratori es: [address], [place] ? ? ? Sp. [place] 1.027 (1.0 Final [place] 02- Reference .030 Laboratori es: ) [address], [place] ? ? ? Urine pH 5.0 (4.0 Final [facility] -8.0 Reference ) Laboratori es: [address], [place] ? ? ? Urine Albumin negative (neg Final [place] ) Reference Laboratori es: [address], [place] ? ? ? Urine Glucose negative (neg Final [facility] ) Reference Laboratori es: [address], [place] ? ? ? Urine Ketones negative (neg Final [place] ) Reference Laboratori es: [address], [place] ? ? ? Urine negative (neg Final [facility] Bilirubin ) Referen ce Laboratori es: [address], [place] ? ? ? Urine negative (neg Final [place] Hemoglobn ) Referen ce Laboratori es: [address], [place] ? ? ? Urine Nitrite negative (neg Final [facility] ) Reference Laboratori es: [address], [place] ? ? ? Urine negative (neg Final [place] Leukocyte ) Referen ce Laboratori es: [address], [place] ? ? ? Urobilinogen normal (nor Final [place] mg/dL m) Reference mg/d Laboratori es: L [address], [place] ? ? ? Urine WBC's 1 /hpf (0-5 Final [facility] ) Reference /hpf Laboratori es: [address], [place] ? ? ? Urine RBC's 2 /hpf (<3) Final [facility] /hpf Reference Laboratori es: [address], [place] ? ? ? Mucus slight ? Final [facility] /lpf Reference Laboratori es: [address], [place] ? ? ? Squamous Epith <1 /hpf ? Final [facility] Reference Laboratori es: [address], [place] ? ? ? Hyaline Cast 1 lpf (0-2 Final [place] ) Reference lpf Laboratori es: [address], [place] 07/05/2015 Urinalysis, ? Appear/color ? ? F inal [facility] Complete Referenc e Laboratori es: [address], [place] ? ? ? Sp. [place] 1.026 (1.0 Final [place] 02- Reference .030 Laboratori es: ) [address], [place] ? ? ? Urine pH 6.0 (4.0 Final [place] -8.0 Reference ) Laboratori es: [address], [place] ? ? ? Urine Albumin negative (neg Final [facility] ) Reference Laboratori es: [address], [place] ? ? ? Urine Glucose negative (neg Final [facility] ) Reference Laboratori es: [address], [place] ? ? ? Urine Ketones negative (neg Final [facility] ) Reference Laboratori es: [address], [place] ? ? ? Urine negative (neg Final [facility] Bilirubin ) Referen ce Laboratori es: [address], [place] ? ? ? Urine negative (neg Final [facility] Hemoglobn ) Referen ce Laboratori es: [address], [place] ? ? ? Urine Nitrite negative (neg Final [facility] ) Reference Laboratori es: [address], [place] ? ? ? Urine negative (neg Final [facility] Leukocyte ) Referen ce Laboratori es: [address], [place] ? ? ? Urobilinogen normal (nor Final [place] mg/dL m) Reference mg/d Laboratori es: L [address], [place] ? ? ? Urine WBC's <1 /hpf (0-5 Final [place] ) Reference /hpf Laboratori es: [address], [place] ? ? ? Urine RBC's none (<3) Final [place] seen /hpf Reference /hpf Laboratori es: [address], [place] ? ? ABNORMAL Bacteria slight (neg Final [facility] hpf ) Reference hpf Laboratori es: [address], [place] ? ? ? Mucus slight ? Final [facility] /lpf Reference Laboratori es: [address], [place] ? ? ? Hyaline Cast 1 lpf (0-2 Final [facility] ) Reference lpf Laboratori es: [address], [place] 07/05/2015 CT + NG DNA, ? Urine ? ? Final [facility] PCR, Chlamydia Amp Ref erence Unspecified Probe Labor atories: Specimen [address], [place] ? ? ? Urine GC Amp ? ? Final [place] Probe Reference Laboratori es: [address], [place] 03/24/2015 CBC W/ Auto ? Wbc 5.8 (4.0 Final [facility] Diff K/mm3 -11. Reference 0) Laboratori es: K/mm [address], [place] ? ? ? Rbc 5.29 (4.7 Final [place] M/mm3 0-6. Reference 10) Laboratori es: M/mm [address], [place] ? ? ? Hgb 15.8 (14. Final [place] gm/dL 0-18 Reference .0) Laboratori es: gm/d [address], [place] ? ? ? Hct 46.8 % (42. Final [place] 0-52 Reference .0) Laboratori es: % [address], [place] ? ? ? Mcv 88.5 fL (80. Final [facility] 0-94 Reference .0) Laboratori es: fL [address], [place] ? ? ? Mch 29.9 pg (27. Final [facility] 0-34 Reference .0) Laboratori es: pg [address], [place] ? ? ? Mchc 33.8 % (33. Final [place] 0-37 Reference .0) Laboratori es: % [address], [place] ? ? ? Plt 256 (150 Final [place] K/mm3 -460 Reference ) Laboratori es: K/mm [address], [place] ? ? ? RDW-SD 38.7 fL (<47 Final [facility] .0) Reference fL Laboratori es: [address], [place] ? ? ? Mpv 11.0 fL (9.4 Final [facility] -12. Reference 4) Laboratori es: fL [address], [place] ? ? ? Automated NRBC 0.0 ? Final [facility] #/100 Reference WBC's Laboratori es: [address], [place] ? ? ? Abs. NRBC 0.0 ? Final [facility] K/mm3 Reference Laboratori es: [address], [place] ? ? ? Neut # 3.6 (1.3 Final [facility] K/mm3 -7.0 Reference ) Laboratori es: K/mm [address], [place] ? ? ? Lymph # 1.5 (0.8 Final [facility] K/mm3 -3.1 Reference ) Laboratori es: K/mm [address], [place] ? ? ? Branch# 0.6 (0.4 Final [facility] K/mm3 -1.3 Reference ) Laboratori es: K/mm [address], [place] ? ? ? Eo # 0.1 (0.0 Final [facility] K/mm3 -0.4 Reference ) Laboratori es: K/mm [address], [place] ? ? ? Baso # 0.0 (0.0 Final [facility] K/mm3 -0.1 Reference ) Laboratori es: K/mm [address], [place] ? ? ? Abs. Imm Gran 0.0 ? Final [facility] K/mm3 Reference Laboratori es: [address], [place] ? ? ? Neut 62.5 % (44- Final [facility] 76) Reference % Laboratori es: [address], [place] ? ? ? Lymph 25.2 % (15- Final [facility] 43) Reference % Laboratori es: [address], [place] ? ? ? Monocyte 9.9 % (4.5 Final [facility] -10. Reference 5) % Laboratori es: [address], [place] ? ? ? Eo 1.2 % (0-6 Final [facility] ) % Reference Laboratori es: [address], [place] ? ? ? Baso 0.7 % (0-2 Final [place] ) % Reference Laboratori es: [address], [place] ? ? ? Imm Gran 0.5 % (0.0 Final [facility] -0.6 Reference ) % Laboratori es: [address], [place] 03/24/2015 H Pylori ? H. Pylori IgG ? ? Fin al [facility] Igm+igg+iga Refer ence Ab, Serum Laborat ories: [address], [place] 04/19/2014 NG DNA, PCR, ? Urine GC Amp ? ? Final [facility] Urine Probe Reference Laboratori es: [address], [place] 04/19/2014 CT, DNA, ? Urine ? ? Final [facility] chen Qual, PCR, Chlamydia Amp Reference Unspecified Probe Labor atories: Specimen [address], [place] 04/19/2014 Chlamydia, ? No observation ? ? ? RNA, Urine recorded. Past Encounters 11/30/2021 Adult Health Examination; Anxiety; Sever e Major Depression, Single Episode, without Psychotic Features; Seborrheic Dermatitis; Exposure to Toxic Waste, Occupational; Inadequate Immune Status Marry Mercado, TIMBER SUPERVISOR: [address] [id number], [place]. Social History Tobacco Smoking Status Never Smoker Vaccine List Vaccine Type COVID-19, mRNA, LNP-S, PF, 30 mcg/0.3 mL dose (microDimensions) 08/11/2020 09/07/2020 12/18/2020?0.3 mL DTaP 1990 1990 1990 01/16/1992 03/18/1995 Hep B, adult 03/18/1995 04/17/1995 10/13/1995 Hib (HbOC) 1990 1990 1990 10/17/1991 influenza, injectable, quadrivalent, pre servative free 03/28/2016?0.5 mL 04/08/2017?0.5 mL 04/07/2018 influenza, seasonal, injectable, preserv ative free 04/19/2014?0.5 mL influenza, seasonal, intradermal, preser vative free 03/31/2013 IPV 1990 1990 01/16/1992 03/18/1995 meningococcal MPSV4 12/14/2007 03/19/2012 MMR 10/17/1991 04/03/1995 Td (adult), adsorbed 10/21/2000 Tdap 11/26/2005 05/10/2016?0.5 mL varicella 11/15/1992 Plan of Care Reminders Provider Appointments None recorded. ? ? Lab None recorded. ? ? Referral None recorded. ? ? Procedures None recorded. ? ? Surgeries None recorded. ? ? Imaging None recorded. ? ? Vitals 11/30/2021 10:30AM PE EST Height Weight BMI Blood Pressure 5 ft 10 in 231 lbs 2 oz 33.2 kg/m2 117/71 mm[Hg] 10/23/2020 09:45AM URGENT Height Weight BMI Blood Pressure 5 ft 10 in 219 lbs 31.4 kg/m2 126/72 mm[Hg] 10/20/2020 03:30PM [id number] Height 5 ft 10 in 09/29/2020 09:40AM [id number] Height 5 ft 10 in 09/05/2020 03:30PM [id number] Height 5 ft 10 in 08/09/2020 03:30PM UV30 Height Weight BMI Blood Pressure 5 ft 10 in 215 lbs 16 oz 31 kg/m2 (1) 140/69 mm[H g] (2) 105/68 mm[Hg ] 12/22/2019 09:15AM FOLLOW UP 30MIN Height Weight BMI Blood Pressure 5 ft 10 in 239 lbs 34.3 kg/m2 126/75 mm[Hg] 09/21/2019 01:45PM Telephone visit Height 5 ft 10 in 06/11/2019 02:15PM URGENT Height Weight BMI Blood Pressure 5 ft 10 in 226 lbs 6 oz 32.5 kg/m2 140/68 mm[Hg] 04/22/2019 03:00PM URGENT Height Weight BMI Blood Pressure 5 ft 10 in 224 lbs 16 oz 32.3 kg/m2 109/66 mm[Hg] 04/15/2019 11:30AM URGENT Height Weight BMI Blood Pressure 5 ft 10 in 225 lbs 8 oz 32.4 kg/m2 126/80 mm[Hg] 01/18/2019 09:15AM PE EST Height Weight BMI Blood Pressure 5 ft 10 in 226 lbs 32.4 kg/m2 118/72 mm[Hg] 11/20/2018 10:30AM URGENT Height Weight BMI Blood Pressure 5 ft 10 in 224 lbs 16 oz 32.3 kg/m2 104/65 mm[Hg] 08/05/2018 02:30PM UV30 Height Weight BMI Blood Pressure 5 ft 10 in 228 lbs 2 oz 32.7 kg/m2 149/76 mm[Hg] 06/17/2018 01:45PM URGENT Height Weight BMI Blood Pressure 5 ft 10 in 227 lbs 16 oz 32.7 kg/m2 118/76 mm[Hg] 04/07/2018 02:15PM ANY 15 Height Weight BMI Blood Pressure 5 ft 10 in 227 lbs 4 oz 32.6 kg/m2 110/62 mm[Hg] 11/11/2017 10:30AM FOLLOW UP Height Weight BMI Blood Pressure 5 ft 10 in 219 lbs 16 oz 31.6 kg/m2 128/84 mm[Hg] 10/09/2017 09:00AM FOLLOW UP 30MIN Height Weight BMI Blood Pressure 5 ft 10 in 225 lbs 2 oz 32.3 kg/m2 116/68 mm[Hg] 09/10/2017 01:45PM URGENT Height Weight BMI Blood Pressure 5 ft 10 in 230 lbs 2 oz 33 kg/m2 128/70 mm[Hg] 04/10/2017 10:30AM URGENT Height Weight BMI Blood Pressure 5 ft 10 in 236 lbs 33.9 kg/m2 132/74 mm[Hg] 04/08/2017 09:30AM FOLLOW UP 30MIN Height Weight BMI Blood Pressure 5 ft 10 in 235 lbs 2 oz 33.7 kg/m2 116/68 mm[Hg] 02/25/2017 09:30AM UV30 Height Weight BMI Blood Pressure 5 ft 10 in 226 lbs 4 oz 32.5 kg/m2 119/62 mm[Hg] 12/20/2016 08:45AM URGENT Height Weight BMI Blood Pressure 5 ft 10 in 224 lbs 16 oz 32.3 kg/m2 124/72 mm[Hg] 12/17/2016 10:30AM URGENT Height Weight BMI Blood Pressure 5 ft 10 in 227 lbs 16 oz 32.7 kg/m2 120/64 mm[Hg] 09/13/2016 09:30AM UV30 Height Weight BMI Blood Pressure 5 ft 10 in 226 lbs 32.4 kg/m2 124/70 mm[Hg] 08/28/2016 01:30PM FOLLOW UP Height Weight BMI Blood Pressure 5 ft 10 in 223 lbs 16 oz 32.1 kg/m2 96/62 mm[Hg] 08/21/2016 09:30AM FOLLOW UP Height Weight BMI Blood Pressure 5 ft 10 in 222 lbs 0.2 oz 31.9 kg/m2 120/72 mm[Hg] 08/14/2016 08:45AM URGENT Height Weight BMI Blood Pressure 5 ft 10 in 227 lbs 12.8 oz 32.7 kg/m2 123/72 mm[Hg] 05/10/2016 11:30AM PE EST Height Weight BMI Blood Pressure 5 ft 10 in 227 lbs 32.6 kg/m2 116/64 mm[Hg] 04/10/2016 11:30AM URGENT Height Weight BMI Blood Pressure 5 ft 10 in 231 lbs 3.2 oz 33.2 kg/m2 136/76 mm[Hg] 03/28/2016 11:30AM FOLLOW UP Height Weight BMI Blood Pressure 5 ft 10 in 232 lbs 33.3 kg/m2 116/78 mm[Hg] 01/05/2016 08:45AM URGENT Height Weight BMI Blood Pressure 5 ft 10 in 227 lbs 16 oz 32.7 kg/m2 122/80 mm[Hg] 07/05/2015 01:30PM URGENT Height Weight BMI Blood Pressure 5 ft 10 in 230 lbs 33 kg/m2 122/82 mm[Hg] 03/24/2015 08:45AM ANY 15 Height Weight BMI Blood Pressure 5 ft 10 in 228 lbs 32.7 kg/m2 120/68 mm[Hg] 04/19/2014 03:15PM URGENT Height Weight BMI Blood Pressure 5 ft 10 in 220 lbs 9.6 oz 31.7 kg/m2 128/72 mm[Hg] 10/22/2013 Height Weight Blood Pressure 5 ft 10 in 230 lbs 106/60 mm[Hg] 03/31/2013 Height Weight Blood Pressure 5 ft 10 in 228 lbs 120/68 mm[Hg]
[2022-04-30 02:33] LABS: Alanine Aminotransferase 18 U/L (0-40); Albumin Level 3.1 g/dL (3.5-5.0); Alkaline Phosphatase 72 U/L (39-117); Anion Gap 16 (12-20); Aspartate Amino Transferase 30 U/L (5-37); Bilirubin Direct < 0.2 mg/dL (0.0-0.5); Bilirubin Total < 0.2 mg/dL (0.0-1.0); Blood Urea Nitrogen 12 mg/dL (9-16); Calcium 8.9 mg/dL (8.4-10.2); Carbon Dioxide 22 mmol/L (22-29); Chloride 103 mmol/L (96-108); Estimated Glomerular Filt Rate > 60; Glucose Random 116 mg/dL (60-115); Magnesium 1.9 mg/dL (1.6-2.6); Potassium 4.7 mmol/L (3.3-5.1); Sodium 136 mmol/L (135-145); Total Protein 8.1 g/dL (6.5-8.0)
--- NOTE | 2022-04-30 02:34 | ED.CHESTPAIN ---
HPI - Chest Pain General Chief Complaint: Chest Pain Stated Complaint: chest pain, eyes are red Time Seen by Provider: 04/30/22 02:34 Source: patient Mode of arrival: ambulatory Limitations: no limitations History of Present Illness HPI narrative: Patient comes to the emergency room complaining of right-sided chest pain, shortness of breath. Of note, patient was discharged 8 days ago from this hospital, patient has spontaneous pneumothorax and COVID. When patient was here in the hospital, on his previous admission, patient needed a 14 Maltese pigtail chest tube, by the time of discharge. Related Data Home Medications Medication Instructions Recorded Confirmed multivitamin 1 tab PO DAILY 04/18/22 04/18/22 Allergies Allergy/AdvReac Type Severity Reaction Status Date / Time No Known Allergies Allergy Verified 04/30/22 01:32 [facility] Past Medical History Medical History (Updated 04/30/22 @ 05:31 by Abigail Beach MD) COVID-19 Spontaneous pneumothorax Family History Family History (Updated 04/18/22 @ 15:43 by DANYELL Bailey) Mother No active medical problems Father No active medical problems Social History Social History Household Members: Significant Other and Family Housing: Apartment Alcohol intake: former Patient Tobacco Use Status: Current everyday Tobacco user Tobacco use type: Cigarette Cigarette Packs Per Day: 1 Cigarettes Per Day: 20.0 Substance Use Type: Marijuana Advance Directives: No Advance Directives Information Provided: Yes service: No Physical Exam Vital Signs: Vital Signs: Last Vital Signs Temp 100.8 F H 04/30/22 03:25 Pulse 138 H 04/30/22 03:25 Resp 24 H 04/30/22 03:25 BP 94/48 L 04/30/22 03:25 Pulse Ox 93 04/30/22 03:25 O2 Del Method 04/30/22 03:25 BMI result Body Mass Index 19.3 Course Course Course Narrative: Patient's white blood cell count is 9.1, lactic acid is 1.4, blood pressure stable. At 05:22, CT scan for pulmonary embolism resolved, shows possible ground-glass opacities secondary to COVID pneumonia. Sepsis is not suspected. Given the patient's recent hospital stay, COVID diagnosis, we will treat the patient with antibiotics. Also to cover for Hcap empirically. Patient's oxygen saturation remains at 98 % on room air. Patient being admitted After the steroids, Benadryl and Pepcid, the periorbital edema improved significantly. Patient states that the only thing well can think of that may have caused an allergic reaction was a multivitamin that he took 1 hour prior to the periorbital edema MDM - Chest Pain Lab Data Result diagrams: 04/30/22 02:00 04/30/22 01:58 Labs: Lab Results 04/30/22 04/30/22 04/30/22 Range/Units 01:57 01:58 01:58 WBC (4.8-10.8) X10*3/uL RBC (4.60-5.80) X10*6/uL Hgb (14.0-18.0) g/dl Hct (42.0-52.0) % MCV (80.0-98.0) fL MCH (27.0-33.0) pg MCHC (31.0-36.0) g/dl RDW (11.0-16.0) % Plt Count (160-400) X10*3/uL MPV (9.4-12.4) fL Immature Gran % (Auto) (0.0-0.4) % Neut % (Auto) (45-73) % Lymph % (Auto) (20-40) % Pender % (Auto) (2-11) % Eos % (Auto) (0-4) % Baso % (Auto) (0-2) % Lymph # (Auto) (1.2-4.9) X10*3/uL Pender # (Auto) (0.1-1.2) X10*3/uL Eos # (Auto) (0.0-0.4) X10*3/uL Baso # (Auto) (0.0-0.2) X10*3/uL Abs Immat Gran (auto) (0.00-0.03) X10*3/uL Absolute Neuts (auto) (2.0-8.3) x10*3/uL Absolute Nucleated RBC (0.0-0.012) X10*3/uL Nucleated RBC % (auto) (0.0-0.2) /100WBC PT (10.0-13.1) SEC INR (0.9-1.1) D-Dimer High Sensitivty NG/ML VBG pH (7.32-7.43) VBG pCO2 mmHg VBG pO2 mmHg VBG HCO3 (22-26) mmol/L VBG O2 Saturation % VBG Base Excess mmol/L Sodium 136 (135-145) mmol/L Potassium 4.7 (3.3-5.1) mmol/L Chloride 103 (96-108) mmol/L Carbon Dioxide 22 (22-29) mmol/L Anion Gap 16 (12-20) BUN 12 (9-16) mg/dL Creatinine 0.82 (0.5-1.4) mg/dL Estim Creat Clear Calc 113.0 Estimated GFR > 60 Random Glucose 116 H (60-115) mg/dL Lactic Acid 1.4 (0.5-2.0) mmol/L Calcium 8.9 D (8.4-10.2) mg/dL Magnesium 1.9 (1.6-2.6) mg/dL Total Bilirubin < 0.2 (0.0-1.0) mg/dL Direct Bilirubin < 0.2 (0.0-0.5) mg/dL AST 30 D (5-37) U/L ALT 18 (0-40) U/L Alkaline Phosphatase 72 D (39-117) U/L Troponin I High Sens (<3.5-35.0) ng/L B-Natriuretic Peptide (<100) pg/mL Total Protein 8.1 H (6.5-8.0) g/dL Albumin 3.1 L (3.5-5.0) g/dL Urine Color Urine Appearance Urine pH (5.0-9.0) Ur Specific [place] (1.005-1.025) Urine Protein (Neg-Trace) mg/dL Urine Glucose (UA) (Negative) mg/dL Urine Ketones (Negative) mg/dL Urine Blood (Negative) Urine Nitrite (Negative) Ur Leukocyte Esterase (Negative) Urine RBC (0-2) /HPF Urine WBC (0-5) /HPF Ur Squamous Epith Cells (0-2) /HPF Urine Bacteria (None Seen) Hyaline Casts (0-2) /LPF Granular Casts COVID-19 (ROJELIO) Positive A (Negative) COVID-19 Clin Com See Note 04/30/22 04/30/22 04/30/22 Range/Units 01:59 01:59 02:00 WBC 9.1 (4.8-10.8) X10*3/uL RBC 3.62 L (4.60-5.80) X10*6/uL Hgb 10.8 L (14.0-18.0) g/dl Hct 32.4 L (42.0-52.0) % MCV 89.5 (80.0-98.0) fL MCH 29.8 (27.0-33.0) pg MCHC 33.3 (31.0-36.0) g/dl RDW 12.6 (11.0-16.0) % Plt Count 408 H D (160-400) X10*3/uL MPV 10.8 (9.4-12.4) fL Immature Gran % (Auto) 0.4 (0.0-0.4) % Neut % (Auto) 86.9 H (45-73) % Lymph % (Auto) 5.5 L (20-40) % Pender % (Auto) 6.7 (2-11) % Eos % (Auto) 0.3 (0-4) % Baso % (Auto) 0.2 (0-2) % Lymph # (Auto) 0.5 L (1.2-4.9) X10*3/uL Pender # (Auto) 0.6 (0.1-1.2) X10*3/uL Eos # (Auto) 0.0 (0.0-0.4) X10*3/uL Baso # (Auto) 0.0 (0.0-0.2) X10*3/uL Abs Immat Gran (auto) 0.04 H (0.00-0.03) X10*3/uL Absolute Neuts (auto) 7.9 (2.0-8.3) x10*3/uL Absolute Nucleated RBC 0.000 (0.0-0.012) X10*3/uL Nucleated RBC % (auto) 0.0 (0.0-0.2) /100WBC PT 12.2 (10.0-13.1) SEC INR 1.1 (0.9-1.1) D-Dimer High Sensitivty 282 NG/ML VBG pH (7.32-7.43) VBG pCO2 mmHg VBG pO2 mmHg VBG HCO3 (22-26) mmol/L VBG O2 Saturation % VBG Base Excess mmol/L Sodium (135-145) mmol/L Potassium (3.3-5.1) mmol/L Chloride (96-108) mmol/L Carbon Dioxide (22-29) mmol/L Anion Gap (12-20) BUN (9-16) mg/dL Creatinine (0.5-1.4) mg/dL Estim Creat Clear Calc Estimated GFR Random Glucose (60-115) mg/dL Lactic Acid (0.5-2.0) mmol/L Calcium (8.4-10.2) mg/dL Magnesium (1.6-2.6) mg/dL Total Bilirubin (0.0-1.0) mg/dL Direct Bilirubin (0.0-0.5) mg/dL AST (5-37) U/L ALT (0-40) U/L Alkaline Phosphatase (39-117) U/L Troponin I High Sens < 3.5 (<3.5-35.0) ng/L B-Natriuretic Peptide < 10 (<100) pg/mL Total Protein (6.5-8.0) g/dL Albumin (3.5-5.0) g/dL Urine Color Urine Appearance Urine pH (5.0-9.0) Ur Specific [place] (1.005-1.025) Urine Protein (Neg-Trace) mg/dL Urine Glucose (UA) (Negative) mg/dL Urine Ketones (Negative) mg/dL Urine Blood (Negative) Urine Nitrite (Negative) Ur Leukocyte Esterase (Negative) Urine RBC (0-2) /HPF Urine WBC (0-5) /HPF Ur Squamous Epith Cells (0-2) /HPF Urine Bacteria (None Seen) Hyaline Casts (0-2) /LPF Granular Casts COVID-19 (ROJELIO) (Negative) COVID-19 Clin Com 04/30/22 04/30/22 Range/Units 02:06 02:36 WBC (4.8-10.8) X10*3/uL RBC (4.60-5.80) X10*6/uL Hgb (14.0-18.0) g/dl Hct (42.0-52.0) % MCV (80.0-98.0) fL MCH (27.0-33.0) pg MCHC (31.0-36.0) g/dl RDW (11.0-16.0) % Plt Count (160-400) X10*3/uL MPV (9.4-12.4) fL Immature Gran % (Auto) (0.0-0.4) % Neut % (Auto) (45-73) % Lymph % (Auto) (20-40) % Pender % (Auto) (2-11) % Eos % (Auto) (0-4) % Baso % (Auto) (0-2) % Lymph # (Auto) (1.2-4.9) X10*3/uL Pender # (Auto) (0.1-1.2) X10*3/uL Eos # (Auto) (0.0-0.4) X10*3/uL Baso # (Auto) (0.0-0.2) X10*3/uL Abs Immat Gran (auto) (0.00-0.03) X10*3/uL Absolute Neuts (auto) (2.0-8.3) x10*3/uL Absolute Nucleated RBC (0.0-0.012) X10*3/uL Nucleated RBC % (auto) (0.0-0.2) /100WBC PT (10.0-13.1) SEC INR (0.9-1.1) D-Dimer High Sensitivty NG/ML VBG pH 7.38 (7.32-7.43) VBG pCO2 36 mmHg VBG pO2 33 mmHg VBG HCO3 21 L (22-26) mmol/L VBG O2 Saturation 38.0 % VBG Base Excess -2.7 mmol/L Sodium (135-145) mmol/L Potassium (3.3-5.1) mmol/L Chloride (96-108) mmol/L Carbon Dioxide (22-29) mmol/L Anion Gap (12-20) BUN (9-16) mg/dL Creatinine (0.5-1.4) mg/dL Estim Creat Clear Calc Estimated GFR Random Glucose (60-115) mg/dL Lactic Acid (0.5-2.0) mmol/L Calcium (8.4-10.2) mg/dL Magnesium (1.6-2.6) mg/dL Total Bilirubin (0.0-1.0) mg/dL Direct Bilirubin (0.0-0.5) mg/dL AST (5-37) U/L ALT (0-40) U/L Alkaline Phosphatase (39-117) U/L Troponin I High Sens (<3.5-35.0) ng/L B-Natriuretic Peptide (<100) pg/mL Total Protein (6.5-8.0) g/dL Albumin (3.5-5.0) g/dL Urine Color Yellow Urine Appearance Cloudy Urine pH 5.5 (5.0-9.0) Ur Specific [place] 1.025 (1.005-1.025) Urine Protein 100 (2+) H (Neg-Trace) mg/dL Urine Glucose (UA) Negative (Negative) mg/dL Urine Ketones Trace (Negative) mg/dL Urine Blood Negative (Negative) Urine Nitrite Negative (Negative) Ur Leukocyte Esterase Negative (Negative) Urine RBC 0-2 (0-2) /HPF Urine WBC 0-5 (0-5) /HPF Ur Squamous Epith Cells 3-5 (0-2) /HPF Urine Bacteria None Seen (None Seen) Hyaline Casts 11-20 (0-2) /LPF Granular Casts Present COVID-19 (ROJELIO) (Negative) COVID-19 Clin Com Critical Care Time Critical Care Time Total Critical Care Time: 40 Attestation: I have personally provided critical care time. Time includes review of lab data, radiology results, discussion with consultants, and monitoring for potential decompensation. Intervention performed as documented. Discharge Plan Discharge Clinical Impression: Pneumonia due to COVID-19 virus, Allergic reaction Patient Disposition: Admitted As Inpatient Prescriptions: No Action multivitamin Tablet 1 tab PO DAILY
[2022-04-30 02:39] LABS: B Type Natriuretic Peptide < 10 pg/mL (<100); Troponin-I High Sensitivity < 3.5 ng/L (<3.5-35.0)
[2022-04-30 02:43] LABS: Appearance Urine Cloudy; Color Urine Yellow; Glucose Urine UA Negative (Negative); Leukocyte Esterase Urine Negative (Negative); Nitrite Urine Negative (Negative); PH 5.5 (5.0-9.0); Specific Gravity - Urine 1.025 (1.005-1.025); UMIC TRIGGER UACC YES; Urine Blood Negative (Negative); Urine Ketones Trace mg/dL (Negative); Urine Protein 100 (2+) mg/dL (Neg-Trace)
[2022-04-30 02:54] LABS: Bacteria Urine None Seen (None Seen); Granular Casts Urine Present; RBC Urine 0-2 /HPF (0-2); WBC Urine 0-5 /HPF (0-5)
[2022-04-30 03:30] LABS: D Dimer High Sensitivity 282 NG/ML
[2022-04-30] MEDS: iohexoL 350 MG/ML 100 ML INFUS..BTL 65 ML IV (04:36)
[2022-04-30] MEDS: 0.9 % Sodium Chloride 1,000 ML 999 ML IVCONT (05:15)
[2022-04-30] MEDS: levoFLOXacin/D5W 750 MG/150 ML PIGGYBACK 100 MG IV (05:30)
--- NOTE | 2022-04-30 05:40 | PC.NURSE ---
pt resting comfortably on stretcher. pt has received 3L bolus fluids normal saline, now receiving iv levaquin antibiotic. imaging shows pneumonia possibly covid pneumonia or aspiration pneumonia. pt on flatwork catcher, fever down from 102.9 to 97.9 w/ tylenol and iv fluids. no current complaints. HR down from 160s to 102. respirations even and unlabored still shallow breathing at about 30 breaths per min. will continue to monitor closely. call finnegan within reach .
[2022-04-30] MEDS: vancomycin HCL 1,500 MG in 0.9 % Sodium Chloride 500 ML 333.33 MG IV (07:33)
--- NOTE | 2022-04-30 07:37 | PHA.MEDREC ---
Pharmacy Consult ? Medication Reconciliation Pharmacy has completed the medication reconciliation.
--- NOTE | 2022-04-30 08:34 | PC.NURSE ---
pt resting comfortably. LS clear bilaterally. O2sat 97% ra. tachy 107. other VS wnl. denies pain or shortness of breath. cherio running
--- NOTE | 2022-04-30 09:03 | PHA.MEDREC ---
Pharmacy Consult ? Medication Reconciliation Pharmacy has completed the medication reconciliation.Med list confirmed against admission from last week and claim history.
--- NOTE | 2022-04-30 09:42 | P.CONPL_ITS ---
History of Present Illness History of Present Illness Consult date: 04/30/22 Chief complaint: Pneumothorax Narrative: This is an inpatient pulmonary consultation. The patient is a 31-year-old gentleman with a history of tobacco dependency and more or use who apparently was in his usual state health until back on April 18 when he was admitted to the hospital with shortness of breath and chest discomfort. He was diagnosed COVID-19 and also spontaneous right-sided pneumothorax. He had a 14 [place] catheter placed improving the pneumothorax. Ultimately the patient was able to have the chest tube removed. He was discharged home. He was however repeat chest x-ray in 3-4 days. However he was feeling well and therefore the opted not to do. More recently the patient started developing worsening shortness of breath. His sister who is a [employer] systems administrator she noticed that he was having hard time breathing therefore recommended that he go to the ER. Upon arrival to the ER the patient again was positive for COVID-19 and had a repeat chest x-ray steps order CT scan demonstrating a residual small right-sided pneumothorax along with bilateral ground-glass opacities primarily in the upper lung zones. As far as inhalation the patient quit smoking the 1st time that he had the pneumothorax back in the end of March and he does smoke marijuana he does enjoy. Explained to him that he does have some emphysematous changes in the bloods in the upper lung zones bilaterally in that he is high risk for spontaneous pneumothorax. He denies any other drugs at this time. Review of Systems Constitutional: Constitutional: Denies fever(s) Eyes: Eyes: Denies change in vision ENT: Denies change in voice Cardiovascular: Cardiovascular: Denies chest pain, Denies dyspnea and Denies dyspnea on exertion Respiratory: Respiratory: Denies cough, Denies dyspnea and Denies dyspnea on exertion Gastrointestinal: Gastrointestinal: Reports no additional gastrointestinal complaints Musculoskeletal: Musculoskeletal: Reports no additional musculoskeletal complaints [facility] Past Medical History Medical History (Updated 04/30/22 @ 05:31 by Abigail Beach MD) COVID-19 Spontaneous pneumothorax Family History Family History (Updated 04/18/22 @ 15:43 by DANYELL Bailey) Mother No active medical problems Father No active medical problems Social History Social History Household Members: Significant Other and Family Housing: Apartment Alcohol intake: former Patient Tobacco Use Status: Current everyday Tobacco user Tobacco use type: Cigarette Cigarette Packs Per Day: 1 Cigarettes Per Day: 20.0 Substance Use Type: Marijuana Advance Directives: No Advance Directives Information Provided: Yes service: No Meds Allergies Allergy/AdvReac Type Severity Reaction Status Date / Time No Known Allergies Allergy Verified 04/30/22 01:32 Active Medications: Current Medications Acetaminophen (Acetaminophen 325 Mg Tablet) 650 mg PO Q6H PRN PRN Reason: Pain, Mild (Pain Scale 1-3) Melatonin (Melatonin 3 Mg Tablet) 6 mg PO BEDTIME PRN PRN Reason: Insomnia Ondansetron HCl (Ondansetron Hcl 4 Mg/2 Ml Vial) 4 mg IVPUSH Q8H PRN PRN Reason: Nausea and Vomiting Sodium Chloride (0.9 % Sodium Chloride Flush 3 Ml Syringe) 3 ml IVFLUSH [facility] Medications Medication Instructions Recorded Confirmed Last Taken Type multivitamin 1 tab PO DAILY 04/18/22 04/30/22 04/30/22 History Physical Exam Vital Signs: Vital Signs: Last Vital Signs Temp 97.4 F 04/30/22 09:11 Pulse 107 H 04/30/22 07:30 Resp 18 04/30/22 07:30 BP 118/70 04/30/22 07:30 Pulse Ox 97 04/30/22 07:30 O2 Del Method 04/30/22 07:30 BMI result Body Mass Index 19.3 Const: General: no acute distress, alert and awake Eyes: Sclerae: sclerae normal EOM: EOMs intact bilaterally Neck: Neck: Yes no lymphadenopathy, Yes trachea midline and Yes supple Chest: Chest palpation & inspection: normal inspection of the chest, no crepitus and no tenderness Resp: Effort & Inspection: normal respiratory effort and no respiratory distress Auscultation: clear to auscultation bilaterally Cardio: Rate: tachycardic Rhythm: regular rhythm Heart sounds: no gallops, no murmurs and no rubs GI: Palpation (GI): Soft to palpation and Other GI palpation findings present ( Nontender) Auscultation: normal bowel sounds Extrem: General: Yes no pedal edema, No clubbing and No cyanosis Results Laboratory Findings CBC and BMP: 04/30/22 02:00 04/30/22 01:58 ABG, PT/INR, D-dimer: PT/INR, D-dimer PT 12.2 SEC (10.0-13.1) 04/30/22 01:59 INR 1.1 (0.9-1.1) 04/30/22 01:59 Abnormal lab findings: Abnormal Labs 04/30/22 04/30/22 04/30/22 01:57 01:58 02:00 RBC 3.62 L Hgb 10.8 L Hct 32.4 L Plt Count 408 H D Neut % (Auto) 86.9 H Lymph % (Auto) 5.5 L Lymph # (Auto) 0.5 L Abs Immat Gran (auto) 0.04 H VBG HCO3 Random Glucose 116 H Total Protein 8.1 H Albumin 3.1 L Urine Protein COVID-19 (ROJELIO) Positive A 04/30/22 04/30/22 02:06 02:36 RBC Hgb Hct Plt Count Neut % (Auto) Lymph % (Auto) Lymph # (Auto) Abs Immat Gran (auto) VBG HCO3 21 L Random Glucose Total Protein Albumin Urine Protein 100 (2+) H COVID-19 (ROJELIO) Assessment and Plan (1) COVID-19: Status: Resolved (2) Spontaneous pneumothorax: Status: Acute Plan small recurrent right sided spontaneous PTX REC: Keep on venti mask to help reabsorb ptx Repeat CXR THoracic surgery referral if CXR is no better Bloodwork Procedures Date of Service Date of Service: 04/30/22
--- NOTE | 2022-04-30 11:09 | PM.IMHP ---
History of Present Illness Date of Service: 04/30/22 Chief Complaint: Dyspnea This is a 31-year-old male with pertinent history of tobacco use disorder, marijuana use disorder, who was recently admitted due to pneumothorax and discharged on 04/21/2022 after removal of chest tube, who presents to the emergency department for evaluation of dyspnea. Patient states he did not follow-up for repeat chest x-ray after discharge as he was feeling well. Patient is coming in with with dyspnea and left-sided chest discomfort that started on the day of presentation. Also has been having tachypnea noted by his sister. Patient states he quit smoking since being discharged from the hospital but continues to smoke marijuana. Denies any other drug use. Patient denies fever but does have a nonproductive cough, denies chills. No palpitations. Patient denies abdominal discomfort or changes in urinary or bowel habits. In the emergency department, CT scan with small right-sided pneumothorax and he was positive for COVID-19. Review of Systems Constitutional: Constitutional: Reports no additional constitutional complaints Cardiovascular: Cardiovascular: Reports no additional cardiovascular complaints Respiratory: Respiratory: Reports cough and Reports pain on inspiration Gastrointestinal: Gastrointestinal: Reports no additional gastrointestinal complaints Genitourinary: Genitourinary: Reports no additional male genitourinary complaints [facility] Medical History COVID-19 Spontaneous pneumothorax Family History Mother No active medical problems Father No active medical problems Social History Household Members: Significant Other and Family Housing: Apartment Alcohol intake: former Patient Tobacco Use Status: Current everyday Tobacco user Tobacco use type: Cigarette Cigarette Packs Per Day: 1 Cigarettes Per Day: 20.0 Substance Use Type: Marijuana Advance Directives: No Advance Directives Information Provided: Yes service: No Meds Allergies Allergy/AdvReac Type Severity Reaction Status Date / Time No Known Allergies Allergy Verified 04/30/22 01:32 Active Medications: Current Medications Acetaminophen (Acetaminophen 325 Mg Tablet) 650 mg PO Q6H PRN PRN Reason: Pain, Mild (Pain Scale 1-3) Melatonin (Melatonin 3 Mg Tablet) 6 mg PO BEDTIME PRN PRN Reason: Insomnia Ondansetron HCl (Ondansetron Hcl 4 Mg/2 Ml Vial) 4 mg IVPUSH Q8H PRN PRN Reason: Nausea and Vomiting Sodium Chloride (0.9 % Sodium Chloride Flush 3 Ml Syringe) 3 ml IVFLUSH QSHIFT COUNTS INCLUDE 234 BEDS AT THE [facility] Home Medications Medication Instructions Recorded Confirmed Last Taken Type multivitamin 1 tab PO DAILY 04/18/22 04/30/22 04/30/22 History Physical Exam Vital Signs and Narrative: Vital Signs: Last Vital Signs Temp 97.4 F 04/30/22 09:11 Pulse 107 H 04/30/22 07:30 Resp 18 04/30/22 07:30 BP 118/70 04/30/22 07:30 Pulse Ox 97 04/30/22 07:30 O2 Del Method 04/30/22 07:30 BMI result Body Mass Index 19.3 Middle-aged male lying in bed in no distress Neck supple, no JVD Regular rate and rhythm, S1-S2 heard Regular breath sounds bilaterally, no wheezing or crackles appreciated Abdomen soft nontender, no guarding, no rigidity Patient is awake, alert and oriented to self, place, time and person ; no focal motor deficit Psych: Normal mood No pedal edema Results Labs CBC and Chem 7: 04/30/22 02:00 04/30/22 01:58 Labs: Laboratory Results - last 24 hr 04/30/22 04/30/22 04/30/22 01:57 01:58 01:58 MCV MCH MCHC RDW Plt Count MPV Immature Gran % (Auto) Neut % (Auto) Lymph % (Auto) Boundary % (Auto) Eos % (Auto) Baso % (Auto) Lymph # (Auto) Boundary # (Auto) Eos # (Auto) Baso # (Auto) Abs Immat Gran (auto) Absolute Neuts (auto) Absolute Nucleated RBC Nucleated RBC % (auto) PT INR D-Dimer High Sensitivty VBG pH VBG pCO2 VBG pO2 VBG HCO3 VBG O2 Saturation VBG Base Excess Anion Gap 16 Estim Creat Clear Calc 113.0 Estimated GFR > 60 Random Glucose 116 H Lactic Acid 1.4 Calcium 8.9 D Magnesium 1.9 Total Bilirubin < 0.2 Direct Bilirubin < 0.2 AST 30 D ALT 18 Alkaline Phosphatase 72 D Troponin I High Sens B-Natriuretic Peptide Total Protein 8.1 H Albumin 3.1 L Urine Color Urine Appearance Urine pH Ur Specific Ely Urine Protein Urine Glucose (UA) Urine Ketones Urine Blood Urine Nitrite Ur Leukocyte Esterase Urine RBC Urine WBC Ur Squamous Epith Cells Urine Bacteria Hyaline Casts Granular Casts COVID-19 (ROJELIO) Positive A COVID-19 Clin Com See Note 04/30/22 04/30/22 04/30/22 01:59 01:59 02:00 MCV 89.5 MCH 29.8 MCHC 33.3 RDW 12.6 Plt Count 408 H D MPV 10.8 Immature Gran % (Auto) 0.4 Neut % (Auto) 86.9 H Lymph % (Auto) 5.5 L Boundary % (Auto) 6.7 Eos % (Auto) 0.3 Baso % (Auto) 0.2 Lymph # (Auto) 0.5 L Boundary # (Auto) 0.6 Eos # (Auto) 0.0 Baso # (Auto) 0.0 Abs Immat Gran (auto) 0.04 H Absolute Neuts (auto) 7.9 Absolute Nucleated RBC 0.000 Nucleated RBC % (auto) 0.0 PT 12.2 INR 1.1 D-Dimer High Sensitivty 282 VBG pH VBG pCO2 VBG pO2 VBG HCO3 VBG O2 Saturation VBG Base Excess Anion Gap Estim Creat Clear Calc Estimated GFR Random Glucose Lactic Acid Calcium Magnesium Total Bilirubin Direct Bilirubin AST ALT Alkaline Phosphatase Troponin I High Sens < 3.5 B-Natriuretic Peptide < 10 Total Protein Albumin Urine Color Urine Appearance Urine pH Ur Specific Ely Urine Protein Urine Glucose (UA) Urine Ketones Urine Blood Urine Nitrite Ur Leukocyte Esterase Urine RBC Urine WBC Ur Squamous Epith Cells Urine Bacteria Hyaline Casts Granular Casts COVID-19 (ROJELIO) COVID-19 Clin Com 04/30/22 04/30/22 02:06 02:36 MCV MCH MCHC RDW Plt Count MPV Immature Gran % (Auto) Neut % (Auto) Lymph % (Auto) Boundary % (Auto) Eos % (Auto) Baso % (Auto) Lymph # (Auto) Boundary # (Auto) Eos # (Auto) Baso # (Auto) Abs Immat Gran (auto) Absolute Neuts (auto) Absolute Nucleated RBC Nucleated RBC % (auto) PT INR D-Dimer High Sensitivty VBG pH 7.38 VBG pCO2 36 VBG pO2 33 VBG HCO3 21 L VBG O2 Saturation 38.0 VBG Base Excess -2.7 Anion Gap Estim Creat Clear Calc Estimated GFR Random Glucose Lactic Acid Calcium Magnesium Total Bilirubin Direct Bilirubin AST ALT Alkaline Phosphatase Troponin I High Sens B-Natriuretic Peptide Total Protein Albumin Urine Color Yellow Urine Appearance Cloudy Urine pH 5.5 Ur Specific Ely 1.025 Urine Protein 100 (2+) H Urine Glucose (UA) Negative Urine Ketones Trace Urine Blood Negative Urine Nitrite Negative Ur Leukocyte Esterase Negative Urine RBC 0-2 Urine WBC 0-5 Ur Squamous Epith Cells 3-5 Urine Bacteria None Seen Hyaline Casts 11-20 Granular Casts Present COVID-19 (ROJELIO) COVID-19 Clin Com Imaging Radiologist's Impressions: Impressions Chest X-Ray 04/30/22 02:13 IMPRESSION: Small right apical pneumothorax, decreased from 04/21/2022. Coarsened appearance of the interstitium may reflect airways disease. Chest CTA 04/30/22 04:18 IMPRESSION: 1. No pulmonary embolus identified. 2. Small right pneumothorax, in keeping with appearance on recent chest x-ray. 3. Moderately extensive groundglass opacities bilaterally, worsened from 04/18/2022. In the proper clinical setting, this could be secondary to pneumonia (including Covid pneumonia) or edema. 4. Suspected tree-in-bud type nodularity in the basilar lower lobes, right middle lobe, and posterior right upper lobe, which may be infectious/inflammatory or secondary to aspiration. 5. Bronchial wall thickening and some mucoid impaction in the bilateral lower lobes. VTE: negative Assessment and Plan (1) Spontaneous pneumothorax: Status: Acute (2) Pneumonia due to COVID-19 virus: Status: Acute (3) Tobacco use: Status: Acute (4) Marijuana use: Status: Acute Plan This is a 31-year-old male with pertinent history of tobacco use disorder, marijuana use disorder, who was recently admitted due to pneumothorax and discharged on 04/21/2022 after removal of chest tube, who presents to the emergency department for evaluation of dyspnea. #. Recurrent pneumothorax -unclear etiology. Patient on Ventimask as per pulmonology to reabsorbed pneumothorax. Noted plans to consult thoracic surgery if pneumothorax persists on repeat chest x-ray. Workup pending #. COVID-19 infection -continue isolation precautions. Patient is not hypoxemic and therefore no indication for Decadron. No concern for bacterial superinfection, defer antibiotics #. Tobacco use disorder -states he quit #. Marijuana use disorder -counselled against use DVT prophylaxis: None. Patient is ambulatory. Holding anticoagulation until surgical possibility is ruled out Full code Diet: Regular diet Patient will require two night minimum hospital stay for evaluation and management of recurrent pneumothorax Quality Stroke Does the patient have a stroke diagnosis?: No VTE Prior VTE?: No VTE Risk Level:: Medical - low VTE Device Contraindication: Treatment Not Indicated VTE Drug Contraindication: Treatment Not Indicated
[2022-04-30 11:18] LABS: Erythrocyte Sedimentation Rate 106 MM/HR (0-15)
[2022-04-30] MEDS: Ketotifen Fumarate 0.025% Oph 5 ML DRPBTL 1 DROP EYE-BOTH ×2 (15:29→20:58)
[2022-04-30] MEDS: 0.9 % Sodium Chloride Flush 3 ML SYRINGE IVFLUSH (16:22)
--- NOTE | 2022-04-30 19:57 | PC.NURSE ---
Assumed care of pt. at 1900. Pt. resting in bed at this time. Collected urine sample and sent to lab. Pt's eyes are slightly swollen. Eye drops are due in another hour. Pt. reports no pain, just discomfort from the eyes. No SOB, breathing is even and unlabored. HR remains tachy at around 102-116.
[2022-04-30 20:34] LABS: Amphetamine Screen Urine Not Detected (Not Detect); Barbiturates, Urine Not Detected (Not Detect); Benzodiazepines Screen Urine Not Detected (Not Detect); Cannabinoid Screen Urine Not Detected (Not Detect); Cocaine Screen Urine Not Detected (Not Detect); Fentanyl, urine Not Detected (Not Detect); Opiate Screen Urine Not Detected (Not Detect); Phencyclidine Screen Urine Not Detected (Not Detect)
--- NOTE | 2022-04-30 23:44 | PC.NURSE ---
Addendum entered by Yolis Hope RN 05/01/22 07:06: report given to CHUCK Sanchez Original Note: report received from CHUCK Arcos pt is alert and oriented resting in bed no signs of acute distress notice pt on continuos cardiac monitoring
--- NOTE | 2022-05-01 | ECG_ITS ---
Test Reason : POSSIBLE ST CHANGE Blood Pressure : / mmHG Vent. Rate : 089 BPM Atrial Rate : 089 BPM P-R Int : 154 ms QRS Dur : 086 ms QT Int : 380 ms P-R-T Axes : 083 082 075 degrees QTc Int : 462 ms Normal sinus rhythm ST elevation, consider early repolarization, pericarditis, or injury Abnormal ECG When compared with ECG of 30-APR-2022 01:47, Vent. rate has decreased BY 61 BPM T wave amplitude has increased in Anterolateral leads ST elevation now present in Inferior leads Anterolateral leads Referred By: Pipo Lazaro Electronically Signed By:HENRY BROWN MD
[2022-05-01 05:10] LABS: Troponin-I High Sensitivity < 3.5 ng/L (<3.5-35.0)
[2022-05-01 05:18] VITALS: BP 114/79; PULSE 99; RESP 25; TEMP 36.1; O2SAT 95
[2022-05-01 08:56] VITALS: BP 115/72; PULSE 121; RESP 24; TEMP 36.4; O2SAT 91
--- NOTE | 2022-05-01 09:04 | PM.PNPUL ---
Subjective Subjective Date of Service: 05/01/22 Interval history: The patient seen and examined. He denies any chest discomfort. Denies any significant shortness of breath. He is wondering about his blood work. Also he has blurriness of the vision with his eyes very red. Sent to the etiology. The patient did have a chest x-ray today that we did personally review. It appears that his pneumothorax is very small. When compared to the x-ray he had prior to discharge actually looks smaller. More significantly the fact that he had significant ground-glass opacities likely from the COVID. The patient also has a decreasing pulse ox now saturating 91% on room air. The patient will need IV steroids at this time. I am hopeful that the inflammation around the eyes gets better. If he continues to have blood in his of the vision may need a ophthalmological exam. Objective Data Labs CBC & Chem 7: 04/30/22 02:00 04/30/22 01:58 Labs: Laboratory Results - last 24 hr 04/30/22 04/30/22 05/01/22 10:14 19:55 04:44 ESR 106 H Troponin I High Sens < 3.5 Urine Opiates Screen Not Detected Urine Fentanyl Screen Not Detected Ur Barbiturates Screen Not Detected Ur Phencyclidine Scrn Not Detected Ur Amphetamines Screen Not Detected U Benzodiazepines Scrn Not Detected Urine Cocaine Screen Not Detected U Marijuana (THC) Screen Not Detected Microbiology Microbiology Results: Microbiology 04/30/22 02:02 Blood - Venous Blood Culture - Preliminary No growth after 24 hours. 04/30/22 02:02 Blood - Venous Blood Culture - Preliminary No growth after 24 hours. Physical Exam Vital Signs: Vital Signs: Last Vital Signs Temp 97.6 F 05/01/22 08:56 Pulse 121 H 05/01/22 08:56 Resp 24 H 05/01/22 08:56 BP 115/72 05/01/22 08:56 Pulse Ox 91 L 05/01/22 08:56 O2 Del Method 05/01/22 08:56 BMI result Body Mass Index 19.3 Const: General: no acute distress, alert and awake Eyes: Sclerae: sclerae normal EOM: EOMs intact bilaterally Neck: Neck: Yes no lymphadenopathy, Yes trachea midline and Yes supple Chest: Chest palpation & inspection: normal inspection of the chest, no crepitus and no tenderness Resp: Effort & Inspection: normal respiratory effort and no respiratory distress Auscultation: clear to auscultation bilaterally Cardio: Rate: tachycardic Rhythm: regular rhythm Heart sounds: no gallops, no murmurs and no rubs GI: Palpation (GI): Soft to palpation and Other GI palpation findings present ( Nontender) Auscultation: normal bowel sounds Extrem: General: Yes no pedal edema, No clubbing and No cyanosis Procedures Date of Service Date of Service: 05/01/22 Assessment and Plan Assessment and plan (1) Pneumonia due to COVID-19 virus: Status: Acute (2) Spontaneous pneumothorax: Status: Acute (3) Allergic reaction: Status: Acute Plan Continue Levaquin Add solumedrol CXR is reassuring, awaiting final read Monitor oxygen, keep above 90% Time Spent With Patient Time: Total time spent is greater than 50% in coordination of care (as documented) at patient's floor/unit and/or counseling patient: Progress Note: Quality Stroke Does the patient have a stroke diagnosis?: No
[2022-05-01] MEDS: 0.9 % Sodium Chloride Flush 3 ML SYRINGE IVFLUSH ×2 (10:01→21:29)
[2022-05-01] MEDS: methylPREDNISolone Sod Succ 125 MG/2 ML VIAL 60 MG IVPUSH ×2 (10:52→19:32)
[2022-05-01] MEDS: Ketotifen Fumarate 0.025% Oph 5 ML DRPBTL 1 DROP EYE-BOTH ×2 (10:52→19:30)
--- NOTE | 2022-05-01 10:56 | PC.NURSE ---
nad, denies pain or sob, medicated as ordered, playing game on the phone, skin wpd, b/l eye redness and medicated for this, aware of care plan and anticipating staying to viry
--- NOTE | 2022-05-01 10:58 | P.CONCA_ITS ---
History of Present Illness History of Present Illness Date of Service: 05/01/22 Chief complaint: Pneumothorax Narrative: This is a cardiology consultation regarding an abnormal EKG. He has a history of tobacco use disorder, marijuana use and was recently apparently admitted for pneumothorax. Then discharged after removal of chest tube. No readmitted with dyspnea. Some chest discomfort as well. In this context, he is COVID positive. From the cardiac standpoint, EKG was thought to be abnormal and hence we have been asked to see him. He denies any previous cardiac issues like ca rdiomyopathy, valvular issues or in fact anything cardiac at all. Currently, he denies any active symptoms like chest pain/shortness of breath. States he feels okay. He is under COVID precautions. On IV steroids. Review of Systems Review of Systems: Yes all other systems are reviewed and are negative Constitutional: Constitutional: Reports as per HPI Eyes: Eyes: Reports as per HPI ENT: Reports as per HPI Cardiovascular: Cardiovascular: Reports as per HPI, Denies acrocyanosis, Denies cool extremities, Denies chest pain, Denies leg edema, Denies lightheadedness, Denies palpitations and Denies dyspnea Respiratory: Respiratory: Reports as per HPI, Reports no additional respiratory complaints and Denies dyspnea Gastrointestinal: Gastrointestinal: Reports as per HPI and Reports no additional gastrointestinal complaints Genitourinary: Genitourinary: Reports no additional male genitourinary complaints and Reports as per HPI Musculoskeletal: Musculoskeletal: Reports no additional musculoskeletal compla ints and Reports as per HPI Integumentary/Breasts: Skin/Breast: Reports system reviewed and no additional complaints, except as docu Neurologic: Reports system reviewed and no additional complaints, except as documented and Reports as per HPI Psychiatric: Psychiatric: Reports no additional psychiatric complaints and Reports as per HPI Endocrine: Endocrine: Reports no additional endocrine complaints, Reports as per HPI and Denies palpitations Hematologic/Lymphatic: Hematologic/Lymphatic: Reports no additional hematologic/lymphatic complaints and Reports as per HPI Allergic/Immunologic: Allergic/Immunologic: Reports no additional allergic/immunologic complaints and Reports as per HPI PMF Past Medical History Medical History (Updated 05/01/22 @ 11:01 by David Peñaloza MD) COVID-19 Spontaneous pneumothorax Family History Family History Mother No active medical problems Father No active medical problems Pertinent family history: Denies any major cardiac issues in the family. Social History Social History Household Members: Significant Other and Family Housing: Apartment Alcohol intake: former Patient Tobacco Use Status: Current everyday Tobacco user Tobacco use type: Cigarette Cigarette Packs Per Day: 1 Cigarettes Per Day: 20.0 Substance Use Type: Marijuana Advance Directives: No Advance Directives Information Provided: Yes service: No Meds Allergies Allergy/AdvReac Type Severity Reaction Status Date / Time No Known Allergies Allergy Verified 04/30/22 01:32 Active Medications: Current Medications Acetaminophen (Acetaminophen 325 Mg Tablet) 650 mg PO Q6H PRN PRN Reason: Pain, Mild (Pain Scale 1-3) Ketotifen Fumarate (Ketotifen Fumarate 0.025% Oph 5 Ml Drpbtl) 1 drop EYE-BOTH BID [facility] Last Admin: 05/01/22 10:52 Dose: 1 drop Melatonin (Melatonin 3 Mg Tablet) 6 mg PO BEDTIME PRN PRN Reason: Insomnia Methylprednisolone Sodium Succinate (Methylprednisolone Sod Succ 125 Mg/2 Ml Vial) 60 mg IVPUSH Q8H [facility] Last Admin: 05/01/22 10:52 Dose: 60 mg Neomycin/Polymyxin/Hydrocortisone (Neomycin/Polymyxin/Hc Oph Susp 7.5 Ml Bottle) 2 drop EYE-BOTH Q4H [facility] Last Admin: 05/01/22 10:52 Dose: 2 drop Ondansetron HCl (Ondansetron Hcl 4 Mg/2 Ml Vial) 4 mg IVPUSH Q8H PRN PRN Reason: Nausea and Vomiting Sodium Chloride (0.9 % Sodium Chloride Flush 3 Ml Syringe) 3 ml IVFLUSH QSHIFT [facility] Last Admin: 05/01/22 10:01 Dose: 3 ml Home Medications Medication Instructions Recorded Confirmed Last Taken Type multivitamin 1 tab PO DAILY 04/18/22 04/30/22 04/30/22 History Physical Exam Vital Signs: Vital Signs: Last Vital Signs Temp 97.6 F 05/01/22 08:56 Pulse 121 H 05/01/22 08:56 Resp 24 H 05/01/22 08:56 BP 115/72 05/01/22 08:56 Pulse Ox 91 L 05/01/22 08:56 O2 Del Method 05/01/22 08:56 BMI result Body Mass Index 19.3 Const: General: comfortable and no acute distress Orientation/consciousness: patient oriented x3 HEENT: Other: Unremarkable Head: Yes normal to inspection Neck: Neck: Yes normal visual inspection Chest: Chest palpation & inspection: normal inspection of the chest Resp: Auscultation: clear to auscultation bilaterally Cardio: Palpation: normal PMI Heart sounds: S1 normal heart sound present, S2 normal heart sound present, no gallops, no murmurs and no rubs GI: Palpation (GI): Soft to palpation Back/Spine/Pelvis: Other: unremarkable Skin: General skin exam: no rashes or lesions noted Neuro: General: patient oriented x3 Extrem: General: Yes normal to inspection Psych: Mental Status: mental status grossly normal Objective Labs and Meds Result diagrams: 04/30/22 02:00 04/30/22 01:58 Lab results: Laboratory Results - last 24 hr 04/30/22 04/30/22 05/01/22 10:14 19:55 04:44 ESR 106 H Troponin I High Sens < 3.5 Urine Opiates Screen Not Detected Urine Fentanyl Screen Not Detected Ur Barbiturates Screen Not Detected Ur Phencyclidine Scrn Not Detected Ur Amphetamines Screen Not Detected U Benzodiazepines Scrn Not Detected Urine Cocaine Screen Not Detected U Marijuana (THC) Screen Not Detected ECG Interpretation: EKG with sinus rhythm at 89/Min; somewhat diffuse ST elevation in the inferior as well as anterolateral leads that could represent pericarditis/L repolarization. In the EKG prior to that, he was in sinus tachycardia at 150/Min. These changes were not appreciated then. Even last month, his heart rate is 120/Min with sinus tach and some T inversions in the anterolateral leads. Assessment and Plan (1) Abnormal EKG: Status: Acute (2) Tachycardia: Status: Acute (3) Pericarditis: Status: Acute (4) COVID-19: Status: Acute Plan Patient remains tachycardic but clinically no symptoms. Unremarkable high sensitivity troponins. Cardiac BNP is completely normal. Abdomen seems to be on the lower side. LFTs and renal function are acceptable. CT chest reported to have no evidence of pulmonary embolism and small right pneumothorax. Moderately extensive ground-glass opacities thought to be possibly from COVID. Overall, could be pericarditis but not clear. We can get an echocardiogram for cardiac function assessment. Otherwise, treat the COVID primarily. Plan discussed with patient and he is agreeable. Procedures Date of Service Date of Service: 05/01/22
--- NOTE | 2022-05-01 11:43 | P.PNIM_ITS ---
Subjective Subjective Date of Service: 05/01/22 Interval History: No significant nursing events overnight. Does report itchy eyes with redness, bilateral. Continues to have chest pain Constitutional Constitutional: Reports no additional constitutional complaints Eyes red and itchy Cardiovascular Cardiovascular: Reports no additional cardiovascular complaints Respiratory Respiratory: Reports cough and Reports pain on inspiration Gastrointestinal Gastrointestinal: Reports no additional gastrointestinal complaints Genitourinary Genitourinary: Reports no additional male genitourinary complaints Physical Exam Vital Signs: Vital Signs: Last Vital Signs Temp 97.6 F 05/01/22 08:56 Pulse 121 H 05/01/22 08:56 Resp 24 H 05/01/22 08:56 BP 115/72 05/01/22 08:56 Pulse Ox 91 L 05/01/22 08:56 O2 Del Method 05/01/22 08:56 BMI result Body Mass Index 19.3 Middle-aged male lying in bed in no distress Neck supple, no JVD Tachycardic, S1-S2 heard Regular breath sounds bilaterally, no wheezing or crackles appreciated Abdomen soft nontender, no guarding, no rigidity Patient is awake, alert and oriented to self, place, time and person ; no focal motor deficit Psych: Normal mood No pedal edema Objective Data Active Medications Acetaminophen (Acetaminophen 325 Mg Tablet) 650 mg PO Q6H PRN PRN Reason: Pain, Mild (Pain Scale 1-3) Ketotifen Fumarate (Ketotifen Fumarate 0.025% Oph 5 Ml Drpbtl) 1 drop EYE-BOTH BID [facility] Last Admin: 05/01/22 10:52 Dose: 1 drop Documented By: AN Melatonin (Melatonin 3 Mg Tablet) 6 mg PO BEDTIME PRN PRN Reason: Insomnia Methylprednisolone Sodium Succinate (Methylprednisolone Sod Succ 125 Mg/2 Ml Vial) 60 mg IVPUSH Q8H [facility] Last Admin: 05/01/22 10:52 Dose: 60 mg Documented By: AN Neomycin/Polymyxin/Hydrocortisone (Neomycin/Polymyxin/Hc Oph Susp 7.5 Ml Bottle) 2 drop EYE-BOTH Q4H [facility] Last Admin: 05/01/22 10:52 Dose: 2 drop Documented By: AN Ondansetron HCl (Ondansetron Hcl 4 Mg/2 Ml Vial) 4 mg IVPUSH Q8H PRN PRN Reason: Nausea and Vomiting Sodium Chloride (0.9 % Sodium Chloride Flush 3 Ml Syringe) 3 ml IVFLUSH QSHIFT [facility] Last Admin: 05/01/22 10:01 Dose: 3 ml Documented By: AN Labs CBC & Chem 7: 04/30/22 02:00 04/30/22 01:58 Labs: Laboratory Results - last 24 hr 04/30/22 05/01/22 19:55 04:44 Troponin I High Sens < 3.5 Urine Opiates Screen Not Detected Urine Fentanyl Screen Not Detected Ur Barbiturates Screen Not Detected Ur Phencyclidine Scrn Not Detected Ur Amphetamines Screen Not Detected U Benzodiazepines Scrn Not Detected Urine Cocaine Screen Not Detected U Marijuana (THC) Screen Not Detected Microbiology Microbiology Results: Microbiology 04/30/22 02:02 Blood Culture - Preliminary Blood - Venous No growth after 24 hours. 04/30/22 02:02 Blood Culture - Preliminary Blood - Venous No growth after 24 hours. Assessment and Plan (1) Tachycardia: Status: Acute (2) COVID-19: Status: Acute (3) Tobacco use: Status: Acute (4) Pneumonia due to COVID-19 virus: Status: Acute Plan This is a 31-year-old male with pertinent history of tobacco use disorder, marijuana use disorder, who was recently admitted due to pneumothorax and discharged on 04/21/2022 after removal of chest tube, who presents to the emergency department for evaluation of dyspnea. #. Recurrent pneumothorax -unclear etiology. Initiated Levaquin and systemic steroids as per pulmonology. Noted plans to consult thoracic surgery if pneumothorax persists on repeat chest x-ray. Workup pending #. COVID-19 infection -continue isolation precautions. Patient is not hypoxemic and therefore no indication for Decadron. No concern for bacterial superinfection, defer antibiotics #. Red itchy eyes -bilateral. Initiating eye drops. No pain #. Tobacco use disorder -states he quit #. Marijuana use disorder -counselled against use DVT prophylaxis: None. Patient is ambulatory. Holding anticoagulation until surgical possibility is ruled out Full code Diet: Regular diet Admit as inpatient and will require continued hospitalization for repeat x-ray in a.m. Quality Stroke Does the patient have a stroke diagnosis?: No VTE Prior VTE?: No VTE Risk Level:: Medical - low VTE Device Contraindication: Treatment Not Indicated VTE Drug Contraindication: Treatment Not Indicated
[2022-05-01 12:06] LABS: HIV Num 3 738.67 S/CO
[2022-05-01 12:09] LABS: HIV AB/AG Reactive (Nonreactive)
[2022-05-01 12:52] LABS: Cyclic Citrullinated Peptide 22 UNITS
--- NOTE | 2022-05-01 12:53 | MHC.CM.PN ---
pt covid positive lives alone is indepdent pt is not vax has no pcp referral [facility] to [facility]
[2022-05-01] MEDS: levoFLOXacin/D5W 750 MG/150 ML PIGGYBACK 100 MG IV (13:41)
[2022-05-01 13:55] VITALS: PULSE 118; RESP 17; TEMP 36.6
--- NOTE | 2022-05-01 13:55 | PC.NURSE ---
st 115-125 on monitor and up to 130's w any movement, no pain or sob, skin wpd, ate both breakfast and lunch, on phone or watching tv, no complaints
[2022-05-01 14:33] VITALS: BP 116/71; PULSE 130; RESP 30; TEMP 36.7; O2SAT 96
[2022-05-01] MEDS: Acetaminophen 325 MG TABLET 650 MG PO (14:35)
--- NOTE | 2022-05-01 14:56 | MHC.CM.PN ---
referral faxed to [facility] for finacial asistance
--- NOTE | 2022-05-01 17:28 | PC.NURSE ---
call made up to [facility] for report, expecting call back. pt has been in nad, HR improved after tylenol admin. tachypneic, though denies feeling sob. spo2 wnl, resp even.
[2022-05-01 17:29] VITALS: BP 116/50; PULSE 91; RESP 28; TEMP 37.2; O2SAT 97
[2022-05-01 19:12] VITALS: BP 120/76; RESP 17; TEMP 36.6; O2SAT 96
[2022-05-01 19:57] VITALS: BMI 19.3
[2022-05-02] VITALS: BP 122/78; PULSE 83; RESP 16; TEMP 36.4; O2SAT 96
[2022-05-02] MEDS: methylPREDNISolone Sod Succ 125 MG/2 ML VIAL 60 MG IVPUSH ×2 (02:00→08:37)
[2022-05-02 04:00] VITALS: BP 110/72; PULSE 84; RESP 16; TEMP 36.5; O2SAT 84
--- NOTE | 2022-05-02 07:00 | CA_ITS ---
Transthoracic Echocardiogram Patient (Last, First, Middle): Arvin Jimenez J Gender: Male Date of : 1990 Age: 31 Procedure Date: 05/02/2022 Procedure Type: Transthoracic Echocardiogram Location: [facility] [place] Height: 177.8 cm Weight: 61.24 kg BSA: 1.77 m2 Heart Rate: 103 bpm BP: 115 / 72 mmHg [employer] Worker: SB Referring MD: David Peñaloza MD Symptoms: Abnormal EKG, tachycardic Study Quality: Technically Difficult due to narrow rib spaces. ECG Rhythm: Tachycardia Conclusions: - The left ventricular systolic function is normal. The visually estimated ejection fraction is between 55-60%. - No obvious valvular pathology seen on this study. Findings Procedure Information Contrast agent, definity, is being given per protocol without apparent complications. Left Ventricle Normal left ventricular cavity size. There is normal left ventricular wall thickness. The left ventricular systolic function is normal. The visually estimated ejection fraction is between 55-60%. There is no evidence of regional wall motion abnormalities. Diastolic function is normal for age. Right Ventricle Normal right ventricular cavity size and systolic function. Atria Both atria are normal in size. Aortic Valve There is a normal trileaflet aortic valve. There is no aortic valve stenosis. There is no aortic valve regurgitation. Mitral Valve The mitral valve appears normal. There is no mitral valve regurgitation. There is no mitral valve stenosis. Pulmonic Valve The pulmonic valve is likely normal. Tricuspid Valve Normal tricuspid valve structure. There is trace tricuspid valve regurgitation. There is no evidence of pulmonary hypertension. Great Vessels The aortic annulus and sinuses of valsalva are normal in size. Venous The inferior vena cava is normal in size and collapses greater than 50% with inspiration. Pericardium/Pleural There is no evidence of pericardial effusion. Prior Study Comparison No prior study available for comparison. Recommendations, Care & Conclusions No obvious valvular pathology seen on this study. Measurements 2D Linear Measurements IVSd: 0.67 0.6-0.9/0.6-1.0 cm LVIDd: 4.16 3.9-5.3/4.2-5.9 cm LVIDd Index: 2.35 2.4-3.2/2.2-3.1 cm/m2 LVIDs: 2.86 2.0-3.6 cm LVPWd: 0.78 0.7-1.1 cm LA Diam: 2.20 2.7-3.8/3.0-4.0 cm LAIDs Index: 1.24 1.5-2.3 cm/m2 LV Mass: 108.95 67-162/88-224 g LV Mass Index: 61.55 43-95/49-115 g/m2 LVOT Diam: 2.00 3.0+(-)1.3 cm 2D Systolic Function EF Teich: 59.00 >55% EF 4C: 66.20 >55% Mitral Valve MV Pk E: 0.91 MV PK A: 1.01 E/A: 0.90 E'Medial: 9.36 E/E' Med: 9.80 Aortic Valve AoV Pk Hugo: 1.18 AoV Pk Grad: 6.00 LVOT LVOT Pk Hugo: 0.94 LVOT Mn Hugo: 0.62 LVOT VTI: 0.16 LVOT Pk Grad: 4.00 LVOT Mn Grad: 2.00 LVOT Diam: 2.00 LVOT Area: 3.14 Diastolic Function MV Pk E: 0.91 MV Pk A: 1.01 E/A: 0.90 E'Medial: 9.36 E/E' Med: 9.80 Right Ventricle TAPSE (mm): 16.50 TVS' Hugo: 15.70 Tricuspid Valve TR Pk Hugo: 2.33 TR Pk Grad: 22.00 RA Press: 3.00 RVSP: 25.00 Great Vessels Aorta Sinus of Valsalva: 3.00 2.0-3.5 cm Pulmonary Valve PV Pk Hugo: 1.17 Peak PV Grad: 5.00 Updated in Other Vendor System with Status of Final David Peñaloza MD electronically signed on 05/02/2022 11:26:27 AM with status of Final
[2022-05-02 07:34] VITALS: BP 121/83; PULSE 100; RESP 20; TEMP 36.3; O2SAT 95
[2022-05-02] MEDS: 0.9 % Sodium Chloride Flush 3 ML SYRINGE IVFLUSH (08:37)
[2022-05-02] MEDS: Ketotifen Fumarate 0.025% Oph 5 ML DRPBTL 1 DROP EYE-BOTH (08:38)
--- NOTE | 2022-05-02 09:35 | PM.DS ---
DS: Providers Provider Date of Service: 05/02/22 Date of admission: 04/30/22 08:51 Primary care physician: Unknown Physician Consults: 04/30/22 08:49 Consult to Pulmonology Routine Consulting Provider: Mike Laguerre Reason for consultation: penumothorax 05/01/22 03:48 Consult to Cardiology Routine Consulting Provider: David Peñaloza Reason for consultation: abnormal ekg Has provider been notified: No DS: Diagnosis Discharge Diagnosis (1) Spontaneous pneumothorax: Status: Acute (2) Tachycardia: Status: Acute (3) COVID-19: Status: Acute (4) Tobacco use: Status: Acute (5) Pneumonia due to COVID-19 virus: Status: Acute DS: Summary Hospital Course Hospital Course: HPI: This is a 31-year-old male with pertinent history of tobacco use disorder, marijuana use disorder, who was recently admitted due to pneumothorax and discharged on 04/21/2022 after removal of chest tube, who presents to the emergency department for evaluation of dyspnea.? Patient states he did not follow-up for repeat chest x-ray after discharge as he was feeling well.? Patient is coming in with with dyspnea and left-sided chest discomfort that started on the day of presentation.? Also has been having tachypnea noted by his sister.? Patient states he quit smoking since being discharged from the hospital but continues to smoke marijuana.? Denies any other drug use.? Patient denies fever but does have a nonproductive cough, denies chills.? No palpitations.? Patient denies abdominal discomfort or changes in urinary or bowel habits. In the emergency department, CT scan with small right-sided pneumothorax and he was positive for COVID-19. Hospital course: Patient was admitted and initiated on steroids and Levaquin as per pulmonology. Noted improvement in pneumothorax on subsequent chest x-rays during hospital course. Patient to follow up with Pulmonary as an outpatient for repeat x-ray. Patient without chest discomfort and maintaining normal oxygen saturation on room air prior to discharge. Also had red itchy bilateral eyes which improved with eyedrops. Patient is stable to be discharged with prescription of Levaquin and steroids to complete course Status at Discharge Functional status at discharge: independent ambulation Time Spent with Patient Time attestation: Total time spent providing and/or coordinating discharge services: Discharge coordination time: Greater than 30 minutes Quality: Safe Use of Opioids Does Pt have an Active Cancer Diagnosis on the Problem List?: No Quality: Stroke Does the patient have a stroke diagnosis?: No Physical Exam Vital Signs: Vital Signs: Last Vital Signs Temp 97.3 F 05/02/22 07:34 Pulse 100 05/02/22 07:34 Resp 20 05/02/22 07:34 BP 121/83 05/02/22 07:34 Pulse Ox 95 05/02/22 07:34 O2 Del Method 05/02/22 07:34 BMI result Body Mass Index 19.3 Middle-aged male lying in bed in no distress Neck supple, no JVD Tachycardic, S1-S2 heard Regular breath sounds bilaterally, no wheezing or crackles appreciated Abdomen soft nontender, no guarding, no rigidity Patient is awake, alert and oriented to self, place, time and person ; no focal motor deficit Psych: Normal mood No pedal edema DS: Data Data Completed and Pending Completed studies during hospitalization [Text1]: Procedures Drainage of Right Pleural Cavity with Drainage Device, Percutaneous Approach (04/18/22) Labs on day of discharge: Laboratory Results - last 24 hr 04/30/22 04/30/22 10:14 15:08 Cycl Citrul Peptide IgG 22 H HIV 1&2 Ab/P24 Ag 4thGn Reactive H Preliminary micro results at discharge 04/30/22 02:02 Blood Culture - Preliminary Blood - Venous No growth after 48 hours. 04/30/22 02:02 Blood Culture - Preliminary Blood - Venous No growth after 48 hours. Imaging Chest x-ray: Radiologist's impression: ITS Impressions Chest X-Ray 04/30/22 02:13 IMPRESSION: Small right apical pneumothorax, decreased from 04/21/2022. Coarsened appearance of the interstitium may reflect airways disease. Chest CTA 04/30/22 04:18 IMPRESSION: 1. No pulmonary embolus identified. 2. Small right pneumothorax, in keeping with appearance on recent chest x-ray. 3. Moderately extensive groundglass opacities bilaterally, worsened from 04/18/2022. In the proper clinical setting, this could be secondary to pneumonia (including Covid pneumonia) or edema. 4. Suspected tree-in-bud type nodularity in the basilar lower lobes, right middle lobe, and posterior right upper lobe, which may be infectious/inflammatory or secondary to aspiration. 5. Bronchial wall thickening and some mucoid impaction in the bilateral lower lobes. VTE: negative Chest X-Ray 05/01/22 07:31 IMPRESSION: Decrease in size of right-sided pneumothorax with tiny pneumothorax remaining Discharge Plan Discharge Anticipated Discharge Date/Time: 05/02/22 10:39 Patient Disposition: Home, Self-Care Discharge Diagnosis: Recurrent pnemothorax Referrals: Physician,Unknown J [Primary Care Provider] - 1 Week Discharge Medications: New ketotifen fumarate 0.025 % (0.035 %) Drops 1 drp ophthalmic (eye) BID Qty: 5 0RF ovoxtfur-rxrstpald-RY 3.5-10,000-10 mg-unit-mg/mL Drops,Suspension 2 drp ophthalmic (eye) Q4H Qty: 5 0RF prednisone 20 mg tablet 20 mg PO DAILY Qty: 14 0RF Rx Instructions: 40mg daily x 5 days followed by 20mg daily x 4 days levofloxacin 750 mg tablet 750 mg PO DAILY Qty: 4 0RF Discontinued multivitamin Tablet 1 tab PO DAILY Discharge Orders: Discharge Order (Routine); Ordered 05/02/22 Ordered By: Asia Lazaro Diet: Regular diet Activity on Discharge: As tolerated Stand Alone Forms: Patient Portal Discharge page Care Plan Goals: Follow up with Pulm in one week for repeat Xray Health Concerns: Recurrent pneumothorax Plan of Treatment: Oral steroid taper course Complete oral Abx course Assessment: as per summary
--- NOTE | 2022-05-02 10:24 | MHC.CM.PN ---
Male 31 DX Pneumothorax Patient is discharged to home today. Financial technology resource teacher referral placed this am. Stefani has met with the patient in his room. He has signed papers to allow Stefani to submit his application to [facility]. Patient is discharged to home self care. He has arranged for transportation home.
[2022-05-02 10:50] VITALS: PULSE 130
[2022-05-02 11:25] VITALS: BP 132/82; PULSE 105; RESP 20; TEMP 36.9; O2SAT 95
--- NOTE | 2022-05-02 11:43 | PM.PNPUL ---
Subjective Subjective Date of Service: 05/02/22 Interval history: Seen and examined. Feeling better, CXR better. Pt would like to go home. Objective Data Labs CBC & Chem 7: 04/30/22 02:00 04/30/22 01:58 Labs: Laboratory Results - last 24 hr 04/30/22 04/30/22 10:14 15:08 Cycl Citrul Peptide IgG 22 H HIV 1&2 Ab/P24 Ag 4thGn Reactive H Microbiology Microbiology Results: Microbiology 04/30/22 02:02 Blood - Venous Blood Culture - Preliminary No growth after 48 hours. 04/30/22 02:02 Blood - Venous Blood Culture - Preliminary No growth after 48 hours. Review of Systems Constitutional: Denies fever(s) Eyes: Denies blurry vision and Denies change in vision Denies change in voice Cardiovascular: Denies chest pain, Denies dyspnea and Denies dyspnea on exertion Respiratory: Denies cough, Denies dyspnea and Denies dyspnea on exertion Gastrointestinal: Reports no additional gastrointestinal complaints Musculoskeletal: Reports no additional musculoskeletal complaints Physical Exam Vital Signs: Vital Signs: Last Vital Signs Temp 98.5 F 05/02/22 11:25 Pulse 105 H 05/02/22 11:25 Resp 20 05/02/22 11:25 BP 132/82 05/02/22 11:25 Pulse Ox 95 05/02/22 11:25 O2 Del Method 05/02/22 11:25 BMI result Body Mass Index 19.3 Const: General: no acute distress, alert and awake Eyes: Sclerae: sclerae normal EOM: EOMs intact bilaterally Neck: Neck: Yes no lymphadenopathy, Yes trachea midline and Yes supple Chest: Chest palpation & inspection: normal inspection of the chest, no crepitus and no tenderness Resp: Effort & Inspection: normal respiratory effort and no respiratory distress Auscultation: clear to auscultation bilaterally Cardio: Rate: tachycardic Rhythm: regular rhythm Heart sounds: no gallops, no murmurs and no rubs GI: Palpation (GI): Soft to palpation and Other GI palpation findings present ( Nontender) Auscultation: normal bowel sounds Extrem: General: Yes no pedal edema, No clubbing and No cyanosis Procedures Date of Service Date of Service: 05/02/22 Assessment and Plan Assessment and plan (1) Pneumonia due to COVID-19 virus: Status: Acute (2) Spontaneous pneumothorax: Status: Acute Plan Continue Levaquin x 5 days total Prednisone 40mg x 5 days, then 20mg x 5 days CXR in 1-2 weeks with Pulmonary outpt f/u Time Spent With Patient Time: Total time spent is greater than 50% in coordination of care (as documented) at patient's floor/unit and/or counseling patient: Progress Note: Quality Stroke Does the patient have a stroke diagnosis?: No
[2022-05-02 13:51] LABS: Anti Nuclear Antibody Screen NEGATIVE (NEGATIVE)
[2022-05-08 16:37] LABS: Asperg fumigatus Precip Abs NEGATIVE (NEGATIVE); Micropoly faeni Abs NEGATIVE (NEGATIVE); Pigeon serum Abs NEGATIVE (NEGATIVE); Saccharo pora viridis Abs NEGATIVE (NEGATIVE); Thermo candidus Abs NEGATIVE (NEGATIVE); Thermoa vulgaris #1 NEGATIVE (NEGATIVE)
== END 2022-05-02 13:40 | disposition home or self-care (01) | DRG 137 ==
LOC: HO.ED 08:22 → HO.EDOVER 08:54 → HO.IMC 05-01 17:09
PROVIDERS: Hospitalist; Internal Medicine; Admitting Provider Student in an Organized Health Care Education/Training Program; Emergency Provider Emergency Medicine; Visit Provider Student in an Organized Health Care Education/Training Program
DX: U07.1 COVID-19 (principal); J12.82 Pneumonia due to coronavirus disease 2019; J93.83 Other pneumothorax; R00.0 Tachycardia, unspecified; Z87.891 Personal history of nicotine dependence
CPT/HCPCS: 36415; 71045; 71275; 80048; 80076; 80307; 81001; 82803; 83605; 83735; 83880; 84484; 85025; 85379; 85610; 85652; 86038; 86039; 86200; 86331; 86606; 86609; 86701; 86702; 87040; 87389; 87635; 93005; 93306; 99285; J1200; J1956; J2930; J3370; Q9957; Q9967

== ENCOUNTER → 2022-05-14 15:18 | Outpatient (BNVA) | payer MEDICAID, SELFPAY | PROVIDERS: Visit Provider Internal Medicine | DX: J44.9 Chronic obstructive pulmonary disease, unspecified (principal); J93.83 Other pneumothorax; U09.9 Post COVID-19 condition, unspecified; B20 Human immunodeficiency virus [HIV] disease | CPT/HCPCS: 99212 ==

== ENCOUNTER 2022-05-15 14:51 | Outpatient (REF) | payer MEDICAID, SELFPAY ==
[2022-05-15 15:47] LABS: Basophils Percent Auto 0.2 % (0-2); Eosinophils Percent Auto 0.4 % (0-4); Hematocrit 33.4 % (42.0-52.0); Hemoglobin 11.2 g/dl (14.0-18.0); Imm Gran Abs Auto 0.06 X10*3/uL (0.00-0.03); Imm Gran Pct Auto 0.6 % (0.0-0.4); Lymphocytes Absolute Auto 0.3 X10*3/uL (1.2-4.9); Lymphocytes Percent Auto 3.1 % (20-40); MANUAL DIFF FLAG SCAN; Mean Corpuscular HGB Conc 33.5 g/dl (31.0-36.0); Mean Corpuscular Hemoglobin 29.4 pg (27.0-33.0); Mean Corpuscular Volume 87.7 fL (80.0-98.0); Mean Platelet Volume 11.7 fL (9.4-12.4); Monocytes Absolute Auto 0.3 X10*3/uL (0.1-1.2); Monocytes Percent Auto 2.6 % (2-11); Neutrophils Absolute Auto 9.9 x10*3/uL (2.0-8.3); Neutrophils Percent Auto 93.1 % (45-73); Platelet Count 393 X10*3/uL (160-400); Red Blood Count 3.81 X10*6/uL (4.60-5.80); Red Cell Distribution Width 13.9 % (11.0-16.0); SCAN SMEAR FLAG 1; White Blood Count 10.6 X10*3/uL (4.8-10.8)
[2022-05-15 16:11] LABS: Alanine Aminotransferase 29 U/L (0-40); Albumin Level 2.5 g/dL (3.5-5.0); Alkaline Phosphatase 77 U/L (39-117); Anion Gap 15 (12-20); Aspartate Amino Transferase 22 U/L (5-37); Bilirubin Direct 0.2 mg/dL (0.0-0.5); Bilirubin Total 0.4 mg/dL (0.0-1.0); Blood Urea Nitrogen 16 mg/dL (9-16); Carbon Dioxide 23 mmol/L (22-29); Chloride 101 mmol/L (96-108); Estimated Glomerular Filt Rate > 60; Glucose Random 104 mg/dL (60-115); Potassium 4.8 mmol/L (3.3-5.1); Sodium 134 mmol/L (135-145); Total Protein 6.7 g/dL (6.5-8.0)
[2022-05-15 16:20] LABS: SLIDE REVIEW VERIFIED
[2022-05-15 17:12] LABS: Syphilis Screen Reactive (Nonreactive)
[2022-05-16 12:05] LABS: ~HepC Num1 0.15 S/CO (0.00-0.79); ~Hepatitis C Antibody Nonreactive (Nonreactive)
[2022-05-16 12:46] LABS: HBS Num1 6.49 mIU/mL (0-7.99); HBc Num1 0.07 S/CO (0.00-0.79); HBsAGNum1 0.23 S/CO (0.00-0.99); Hepatitis B Core Antibody Nonreactive (Nonreactive); Hepatitis B Surface Antigen Negative (Negative); ~Hepatitis B Surface Antibody NONREACTIVE (Nonreactive)
[2022-05-16 15:02] LABS: Absolute CD3 Count 191 cells/uL (840-3060); Absolute CD4 Count 32 cells/uL (490-1740); Absolute CD8 Count 152 cells/uL (180-1170); Absolute Lymphocytes 264 cells/uL (850-3900); CD4 CD8 Ratio 0.21 (0.86-5.00); Percent CD3 Cells 72 % (57-85); Percent CD4 Cells 12 % (30-61); Percent CD8 Cells 58 % (12-42)
[2022-05-17 01:06] LABS: Toxoplasma IgG Antibody <7.20 IU/mL; Toxoplasma IgM Antibody <8.00 AU/mL
[2022-05-17 13:16] LABS: Hepatitis A Antibody IgG REACTIVE (Nonreactive); ~Hepatitis A Antibody IgG 1.45 S/CO (0.00-0.99)
[2022-05-20 08:47] LABS: HIV RNA PCR Qn Copies 318000 Copies/mL
[2022-05-20 08:54] LABS: TSpotTB Invalid (Negative)
[2022-05-22 13:51] LABS: RPR Quantitative Reactive 1:64 (Nonreactive); T.Pallidum Particle Agg Test Reactive (Nonreactive)
[2022-05-26 15:06] LABS: Date Viral Load Collected NG; Dolutegravir Resistance NOT PREDICTED; HIV-1 Bictegravir Resistance NOT PREDICTED; HIV-1 Cabotegravir Resistance NOT PREDICTED; HIV-1 Elvitegravir Resistance NOT PREDICTED; Raltegravir Resistance NOT PREDICTED; Value of Last HIV Viral Load NG copies/mL
[2022-05-26 19:56] LABS: HIV Genotype DETECTED
== END 2022-05-15 14:52 | disposition home or self-care (01) ==
LOC: HO.LAB 14:51
PROVIDERS: Visit Provider Internal Medicine
DX: B20 Human immunodeficiency virus [HIV] disease (principal)
CPT/HCPCS: 36415; 80048; 80076; 85025; 86359; 86360; 86481; 86592; 86704; 86706; 86708; 86777; 86778; 86780; 86803; 87340; 87536; 87900; 87901; 87906; 99202

== ENCOUNTER 2022-05-19 17:10 | Inpatient (IN) | payer MEDICAID, SELFPAY ==
--- NOTE | ~2022-05-19 | CT_ITS ---
EXAMINATION: CT ANGIOGRAM OF THE CHEST WITH AND WITHOUT CONTRAST (CT PULMONARY ANGIOGRAM FOR PE) CT ABDOMEN AND PELVIS WITH CONTRAST CLINICAL INFORMATION: Reason for Exam Nausea/vomiting/decreased p.o. intake COMPARISON: CT chest 04/30/2022 TECHNIQUE: Prior to contrast administration, noncontrast localization images were obtained. Subsequently, multidetector volumetric imaging was performed from the thoracic inlet to the pubic symphysis following the administration of 85 mL Omnipaque 350 intravenous contrast. This was followed by multidetector acquisition of the abdomen and pelvis. No contrast reaction reported Sagittal, coronal, and MIP oblique sagittal reformatted images were obtained on the CT workstation, uploaded to PACS, and reviewed. This CT examination was performed using dose optimization techniques as appropriate, variously including the following: *Automated exposure control *Adjustment of mA and/or kV according to patient size (this includes techniques or standardized protocols for targeted exams where dose is matched to indication/reason for exam; i.e. extremities or head) *Use of iterative reconstruction technique Total exam dose-length product 455 mGy-cm FINDINGS: CHEST: Quality of study/contrast bolus: Suboptimal. Pulmonary arteries: No central pulmonary embolus. No appreciable segmental pulmonary embolus though assessment smaller segmental pulmonary emboli is limited portions of the lung due to motion artifact. Thoracic aorta: No aneurysm or dissection. Lungs: Since prior CT increase in extent of primarily groundglass opacities seen extensively throughout both lungs. There are are mild patchy more consolidative opacities in the lower lobes as well and mild linear basilar subsegmental atelectasis. Previously seen small right pneumothorax is resolved. Paraseptal emphysematous changes. No suspicious appearing solid pulmonary nodule. Airways:Central through segmental airways are clear. Pleura and pericardium: No pleural or pericardial effusions. Heart and vascular structures: No cardiomegaly. No appreciable coronary artery vascular calcifications. No LV septal bowing to suggest RV strain. Lymph nodes: No mediastinal, hilar, or axillary lymphadenopathy. Chest Wall: No chest wall mass. ABDOMEN/PELVIS: Liver: Normal size and attenuation. No liver lesions. Gallbladder and bile ducts:No calcified gallstones, mural thickening, or pericholecystic fluid/inflammatory change. No biliary ductal dilation. Pancreas: No pancreatic lesion, ductal dilation, or peripancreatic inflammatory change. Spleen: Normal size. No splenic lesion. Adrenal Glands: Unremarkable. Kidneys and Ureters: Symmetric nephrograms. No hydronephrosis. No renal cyst or mass identified. Vasculature:No abdominal aortic aneurysm. Lymph nodes:No lymphadenopathy. Gastrointestinal Tract: Somewhat limited assessment due to paucity of intra-abdominal fat. No dilated bowel loops. No bowel thickening identified. The appendix is not seen. There is no pericecal inflammation to suggest acute appendicitis. Peritoneum:No ascites or intra-abdominal free air. Abdominal wall:No hernia. Bladder: Unremarkable. Pelvic Viscera: Unremarkable. Bones: No acute fracture or suspicious osseous lesion. CT/CT angio chest PE protocol IMPRESSION: 1. No evidence of central or segmental pulmonary embolus. Please note evaluation for segmental pulmonary emboli is somewhat limited due to motion artifact. 2. Since prior CT of 04/30/2022, increase in extent of groundglass airspace opacities throughout both lungs with mild patchy consolidative opacities in the lower lobes. Findings suggest worsening atypical pneumonia or pneumonitis. No effusions. 3. No acute intra-abdominal process identified. No evidence of bowel obstruction. VTE: Negative, with limitation as above
--- NOTE | ~2022-05-19 | XR_ITS ---
EXAMINATION: XR CHEST CLINICAL INFORMATION: Chest pain COMPARISON: Chest x-ray 05/02/2022 TECHNIQUE: Frontal view of the chest was obtained. FINDINGS: Worsening of patchy bilateral airspace opacities with a relatively central distribution. No dense lobar consolidation. No pleural effusion or pneumothorax visualized. Normal cardiomediastinal silhouette. No acute osseous injury. XR/XR chest 1V IMPRESSION: 1. Worsening bilateral patchy airspace opacities suspicious for multifocal pneumonia/atypical pneumonia, less likely hemorrhage. Pulmonary edema felt unlikely. 2. No appreciable pleural effusions.
[2022-05-19 17:14] VITALS: BP 117/51; PULSE 137; RESP 20; TEMP 35.9; O2SAT 96; BMI 15.1
--- NOTE | 2022-05-19 17:23 | ECG_ITS ---
Test Reason : CX PAIN Blood Pressure : / mmHG Vent. Rate : 127 BPM Atrial Rate : 127 BPM P-R Int : 122 ms QRS Dur : 076 ms QT Int : 280 ms P-R-T Axes : 082 094 075 degrees QTc Int : 406 ms Sinus tachycardia RSR' or QR pattern in V1 suggests right ventricular conduction delay Possible Left atrial enlargement Rightward axis Abnormal ECG When compared with ECG of 01-MAY-2022 03:27, Heart rate has increased ST less elevated in Inferior leads Lateral leads Referred By: Generic ED Physician Electronically Signed By:HENRY BROWN MD
[2022-05-19 17:48] LABS: Basophils Percent Auto 0.1 % (0-2); Hematocrit 38.2 % (42.0-52.0); Hemoglobin 12.6 g/dl (14.0-18.0); Imm Gran Abs Auto 0.09 X10*3/uL (0.00-0.03); Imm Gran Pct Auto 0.7 % (0.0-0.4); Lymphocytes Absolute Auto 0.4 X10*3/uL (1.2-4.9); Lymphocytes Percent Auto 2.9 % (20-40); MANUAL DIFF FLAG SCAN; Mean Platelet Volume 11.3 fL (9.4-12.4); Monocytes Absolute Auto 0.4 X10*3/uL (0.1-1.2); Monocytes Percent Auto 2.8 % (2-11); Neutrophils Absolute Auto 12.8 x10*3/uL (2.0-8.3); Neutrophils Percent Auto 93.5 % (45-73); Platelet Count 567 X10*3/uL (160-400); Red Blood Count 4.34 X10*6/uL (4.60-5.80); SCAN SMEAR FLAG 1; White Blood Count 13.7 X10*3/uL (4.8-10.8)
--- OUTSIDE RECORDS SUMMARY | 2022-05-19 17:57 | XMS_ITS ---
:1990 Author Care Team Providers Name Role Phone [facility] OTHER [phone] EVELINA HA MD Urologist [phone] MARGARET CHILD Orthopedic Surgeon [phone] MARRY MERCADO LEATHERSMITH Primary Care Provider [phone] Allergies Code Code System Name Reaction Severity [...] mcg/actuation nasal spray,suspension C ompleted ? 08/09/2020 [place] 2 sprays every day by intranasal route [...] 50 mcg/actuation nasal spray Completed ? 08/09/2020 [place] 2 sprays every day by intranasal route [...] Information no t available 03/28/2016 US, Echocardiogram [facility] (Outt Non-I nvasive Cardiology Scheduling) [address] [place], [place] [address] (Work Place) 08/28/2016 MRI, Lumbar Spine, W/o Contrast [facility] ([facility]) [address] [place], [place] [address] (Work Place) 12/17/2016 US, Testicle [facility] [address] (Ultrasound) [address] [place], [place] [address] (Work Place) 08/05/2018 XR, Abdomen [facility] [address] (Ultrasound) [address] [place], [place] [address] (Work Place) 01/18/2019 XR, Ankle [facility] [address] [place], [place] [address] (Work Place) 10/23/2020 US, Scrotum [facility] [address] [address] (Work Place) Results Lab Results Date Name Specimen Result Interpretation Description Value Range Status Address ? 10/23/2020 Urinalysis Urine ? Appear/color ? ? Fi nal [facility] W/reflex Referenc e Culture Laborator ies: [address], [place] ? ? Urine ? Sp. [place] 1.025 (1.0 Final [facility] chen 07-31 Reference .030 Laboratori es: ) [address], [place] ? ? Urine ? Urine pH 6.0 (5.0 Final [facility] -8.0 Reference ) Laboratori es: [address], [place] ? ? Urine ? Urine Albumin negative (neg Final [facility] ) Reference Laboratori es: [address], [place] ? ? Urine ? Urine Glucose negative (neg Final [facility] ) Reference Laboratori es: [address], [place] ? ? Urine ? Urine Ketones negative (neg Final [facility] ) Reference Laboratori es: [address], [place] ? ? Urine ? Urine negative (neg Final [facility] Bilirubin ) Referen ce Laboratori es: [address], [place] ? ? Urine ? Urine negative (neg Final [facility] Hemoglobin ) Refere nce Laboratori es: [address], [place] ? ? Urine ? Urine Nitrite negative (neg Final [facility] ) Reference Laboratori es: [address], [place] ? ? Urine ? Urine negative (neg Final [facility] Leukocyte ) Referen ce Laboratori es: [address], [place] ? ? Urine ? Urobilinogen normal (nor Final [place] [facility] mg/dL m) Reference mg/d Laboratori es: [...] ? Urine ? Mucus slight ? Final [facility] /lpf Reference Laboratori es: [address], [place] ? ? Urine ? Clarity clear (manoj Final [facility] ar) Reference Laboratori es: [address], [place] ? ? Urine ? Culture culture ? Final [facility] Indication not Refere nce indicate Laborato karthik: d [address], [place] 10/23/2020 CT + NG DNA, Urine ? Urine ? (neg Final [facility] PCR, Urine Chlamydia Amp ) Reference Probe Laboratori es: [address], [place] ? ? Urine ? Urine GC Amp ? (neg Final [place] [facility] Probe ) Reference Laboratori es: [address] [...] NG DNA, Normal Urine ? (neg Final [facility] PCR, Urine Chlamydia Amp ) Reference Probe Laboratori es: [address], [place] ? ? Normal Urine GC Amp ? (neg Final [place] [facility] Probe ) Reference Laboratori es: [address], [place] 06/17/2018 CT + NG DNA, ABNORMAL Urine ? (neg Final [facility] PCR, Urine Chlamydia Amp ) Reference Probe Laboratori es: [address], [place] ? ? Normal Urine GC Amp ? (neg Final [facility] Probe ) Reference Laboratori es: [address], [place] 02/25/2017 RPR (Rapid ? Syphilis nonreact ? Iona l [facility] Plasma Screen by Amada blanca Ref [...] ? Urine GC Amp ? (neg Final [place] [facility] Probe ) Reference Laboratori es: [address], [place] 02/25/2017 Hsv (1+2) ? Herpes Simplex 9.5 ? F inal [facility] Igg Ab, 1 IgG Ab Referen ce Serum Laboratori es: [address], [place] ? ? ? Hsv 2 IgG Ab 0.13 ? Final [place] [facility] Reference Laboratori es: [address], [place] 02/25/2017 Hsv (1+2) ? Herpes Simplex ? ? [facility], Serum Type 1/2 IgM Reference Laboratori es: [address], [place] 09/13/2016 Urinalysis, ? Appear/color ? ? F inal [facility] Complete Referenc e Laboratori es: [address], [place] ? ? ? Sp. [place] 1.027 (1.0 Final [place] chen 02- Reference .030 Laboratori es: ) [address], [place] ? ? ? Urine pH 5.0 (4.0 Final [facility] -8.0 Reference ) Laboratori es: [address], [place] ? ? ? Urine Albumin negative (neg Final [facility] ) Reference Laboratori es: [address], [place] ? ? ? Urine Glucose negative (neg Final [facility] ) Reference Laboratori es: [address], [place] ? ? ? Urine Ketones negative (neg Final [facility] ) Reference Laboratori es: [address], [place] ? ? ? Urine negative (neg Final [facility] Bilirubin ) Referen ce Laboratori es: [address], [place] ? ? ? Urine negative (neg Final [facility] Hemoglobn ) Referen ce Laboratori es: [address], [place] ? ? ? Urine Nitrite negative (neg Final [facility] ) Reference Laboratori es: [address], [place] ? ? ? Urine negative (neg Final [facility] Leukocyte ) Referen ce Laboratori es: [address], [place] ? ? ? Urobilinogen normal (nor Final [place] [facility] mg/dL m) Reference mg/d Laboratori es: [...] ? Squamous Epith <1 /hpf ? Final [facility] Reference Laboratori es: [address], [place] ? ? ? Hyaline Cast 1 lpf (0-2 Final [place] [facility] ) Reference lpf Laboratori es: [address], [place] 07/05/2015 Urinalysis, ? Appear/color ? ? F inal [facility] Complete Referenc e Laboratori es: [address], [place] ? ? ? Sp. [place] 1.026 (1.0 Final [place] chen 02- Reference .030 Laboratori es: ) [address], [place] ? ? ? Urine pH 6.0 (4.0 Final [facility] -8.0 Reference ) Laboratori es: [address], [place] ? ? ? Urine Albumin negative (neg Final [facility] ) Reference Laboratori es: [address], [place] ? ? ? Urine Glucose negative (neg Final [facility] ) Reference Laboratori es: [address], [place] ? ? ? Urine Ketones negative (neg Final [facility] ) Reference Laboratori es: [address], [place] ? ? ? Urine negative (neg Final [facility] Bilirubin ) Referen ce Laboratori es: [address], [place] ? ? ? Urine negative (neg Final [facility] Hemoglobn ) Referen ce Laboratori es: [address], [place] ? ? ? Urine Nitrite negative (neg Final [facility] ) Reference Laboratori es: [address], [place] ? ? ? Urine negative (neg Final [facility] Leukocyte ) Referen ce Laboratori es: [address], [place] ? ? ? Urobilinogen normal (nor Final [place] [facility] mg/dL m) Reference mg/d Laboratori es: L [address], [place] ? ? ? Urine WBC's <1 /hpf (0-5 Final [place] [facility] ) Reference /hpf Laboratori es: [address], [place] ? ? ? Urine RBC's none (<3) Final [place] chen seen /hpf Reference /hpf Laboratori es: [address], [place] ? ? ABNORMAL Bacteria slight (neg Final [facility] hpf ) Reference hpf Laboratori es: [address], [place] ? ? ? Mucus slight ? Final [facility] /lpf Reference Laboratori es: [address], [place] ? ? ? Hyaline Cast 1 lpf (0-2 Final [facility] ) Reference lpf Laboratori es: [address], [place] 07/05/2015 CT + NG DNA, ? Urine ? ? Final [facility] PCR, Chlamydia Amp Ref erence Unspecified Probe Labor atories: Specimen [address], [place] ? ? ? Urine GC Amp ? ? Final [place] [facility] Probe Reference Laboratori es: [address], [place] 03/24/2015 CBC W/ Auto ? Wbc 5.8 (4.0 Final [facility] state Diff K/mm3 -11. Reference 0) Laboratori es: K/mm [address], [place] ? ? ? Rbc 5.29 (4.7 Final [facility] M/mm3 0-6. Reference 10) Laboratori es: M/mm [address], [place] ? ? ? Hgb 15.8 (14. Final [facility] gm/dL 0-18 Reference .0) Laboratori es: gm/d [address], [place] ? ? ? Hct 46.8 % (42. Final [facility] 0-52 Reference .0) Laboratori es: % [address], [place] ? ? ? Mcv 88.5 fL (80. Final [facility] 0-94 Reference .0) Laboratori es: fL [address], [place] ? ? ? Mch 29.9 pg (27. Final [facility] 0-34 Reference .0) Laboratori es: pg [address], [place] ? ? ? Mchc 33.8 % (33. Final [facility] 0-37 Reference .0) Laboratori es: % [address], [place] ? ? ? Plt 256 (150 Final [facility] K/mm3 -460 Reference ) Laboratori es: K/mm [...] [address], [place] ? ? ? [place]# 0.6 (0.4 Final [facility] K/mm3 -1.3 Reference [...] ? ? Baso 0.7 % (0-2 Final [facility] ) % Reference Laboratori es: [address], [place] ? ? ? Imm Gran 0.5 % (0.0 Final [facility] -0.6 Reference ) % Laboratori es: Renny Awad, [place] 03/24/2015 H Pylori ? H. Pylori IgG ? ? Fin al [facility] Igm+igg+iga Refer ence Ab, Serum Laborat ories: Renny Awad, [place] 04/19/2014 NG DNA, PCR, ? Urine GC Amp ? ? Final [facility] Urine Probe Reference Laboratori es: Renny Awad, [place] 04/19/2014 CT, DNA, ? Urine ? ? Final [facility] chen Qual, PCR, Chlamydia Amp Reference Unspecified Probe Labor atories: Specimen [address], [place] 04/19/2014 Chlamydia, ? No observation ? ? ? RNA, Urine recorded. Past Encounters 11/30/2021 Adult Health Examination; Anxiety; Sever e Major Depression, Single Episode, without Psychotic Features; Seborrheic Dermatitis; Exposure to Toxic Waste, Occupational; Inadequate Immune Status Marry Mercado, LEATHERSMITH: [address] [id number], [place]. Social History Tobacco Smoking Status Never Smoker Vaccine List Vaccine Type COVID-19, mRNA, LNP-S, PF, 30 mcg/0.3 mL dose ([employer]) 08/11/2020 09/07/2020 12/18/2020?0.3 mL DTaP 1990 1990 [...] lbs 31.4 kg/m2 126/72 mm[Hg] 10/20/2020 03:30PM [id number] Height 5 ft 10 in 09/29/2020 09:40AM [id number] Height 5 ft 10 in 09/05/2020 03:30PM [id number] Height 5 ft 10 in 08/09/2020 03:30PM [...]
[2022-05-19 18:00] VITALS: PULSE 115; RESP 20; TEMP 36.7; O2SAT 95
--- NOTE | 2022-05-19 18:01 | ED.CHESTPAIN ---
HPI - Chest Pain General Chief Complaint: Chest Pain Stated Complaint: chest pain Time Seen by Provider: 05/19/22 18:01 Source: patient Mode of arrival: ambulatory History of Present Illness HPI narrative: 31-year-old male with past medical history of tobacco use disorder, marijuana use, spontaneous pneumothorax, presenting to the ED complaining of epigastric abdominal pain feels like a ball in chest/stomach with decreased/inability to tolerate p.o. x 2 weeks. Patient reports 105 lb weight loss in a few months. Reports right-sided chest wall pain. Admits has been unable to take any medications secondary to pain. Denies SOB, diarrhea/constipation, pedal edema, history of clots. Admits quit smoking at the end of last month MD complaint: chest pain Onset (ago): week(s) Related Data Previous Rx's Medication Instructions Recorded fluconazole 200 mg tablet 200 mg PO DAILY 14 days #14 tabs 05/15/22 (Diflucan) prednisone 10 mg tablet 20 mg PO DAILY 7 days #14 tabs 05/15/22 sulfamethoxazole 800 2 tab PO BID 21 days #84 tabs 05/15/22 mg-trimethoprim 160 mg tablet (Bactrim DS) dolutegravir 50 mg-lamivudine 300 1 tab PO DAILY 30 days #30 tabs 05/17/22 mg tablet (Dovato) Allergies Allergy/AdvReac Type Severity Reaction Status Date / Time No Known Allergies Allergy Verified 05/15/22 15:11 Review of Systems Review of Systems: Constitutional: No Fever, No Chills, No Fatigue, No Malaise ENT/Mouth: No Ear Pain, No Nasal Congestion, No Hoarseness, No sore throat, No Rhinorrhea, No Swallowing Difficulty Eyes: No Eye Pain, No Swelling, No Redness, No Vision Changes Cardiovascular: + Chest Pain, No SOB, No Dyspnea on Exertion, No Orthopnea, No Edema, + Palpitations Respiratory: No Cough, No Sputum, No Wheezing, No Dyspnea Gastrointestinal: + Nausea, + Vomiting, No Diarrhea, No Constipation, + Abdominal pain Genitourinary: No Dysuria, No Urinary Frequency, No Hematuria, No Urinary Incontinence/retention, No Flank Pain, No Urinary Flow Changes, No Hesitancy Musculoskeletal: No joint pain, No Myalgias, No Joint Swelling Skin: No Skin Lesions, No rash Neuro: No Weakness, No Loss of Consciousness, No Dizziness, No Headache Yes all other systems are reviewed and are negative Constitutional: Constitutional: Reports as per [facility] Past Medical History Attestation statement: The following information was validated with the patient. Medical History AIDS COPD (chronic obstructive pulmonary disease) COVID-19 COVID-19 HIV (human immunodeficiency virus infection) Pericarditis Pneumonia due to COVID-19 virus Spontaneous pneumothorax Spontaneous pneumothorax Tachycardia Tobacco use Family History Family History Mother No active medical problems Father No active medical problems Social History Social History Household Members: Family Housing: House Do you presently have visiting nurse or other home services: No Alcohol intake: former Patient Tobacco Use Status: Former Tobacco user Tobacco use type: Cigarette Cigarette Packs Per Day: 1 Cigarettes Per Day: 20.0 Substance Use Type: Marijuana Advance Directives: No Advance Directives Information Provided: Yes service: No Current occupation: unemployed,did work at [employer] Sexual orientation: MSM Gender identity: Male Physical Exam Vital Signs: Vital Signs: Last Vital Signs Temp 98.2 F 05/19/22 20:33 Pulse 110 H 05/19/22 20:33 Resp 36 H 05/19/22 20:33 BP 108/59 L 05/19/22 20:33 Pulse Ox 98 05/19/22 20:33 O2 Del Method 05/19/22 20:33 BMI result Body Mass Index 15.1 Const: General: cooperative, no acute distress and ill appearing Nutritional Appearance: cachectic Orientation/consciousness: patient oriented x3 Limitations: no limitations HEENT: Head: Yes normal to inspection and Yes atraumatic Ears: hearing grossly normal bilaterally General nose exam: Normal external nose present Face and sinus: Yes normal facial exam Eyes: General: appearance normal, both eyes and all related structures EOM: EOMs intact bilaterally Neck: Neck: Yes normal visual inspection and Yes no meningeal signs Resp: Effort & Inspection: normal respiratory effort, no grunting, respiratory distress, no stridor and tachypneic Auscultation: no crackles, no rhonchi and diminished lung sounds diffuse Cardio: Rate: regular rate Heart sounds: S1 normal heart sound present and S2 normal heart sound present GI: Inspection: Yes normal to inspection Palpation (GI): Soft to palpation, Tenderness to palpation present (GI) in the epigastrum; with no rebound tenderness, no guarding and not rigid : General: Yes no CVA tenderness Back/Spine/Pelvis: Back: no CVA tenderness Skin: Rashes: no rashes Wounds: no wounds Neuro: General: patient oriented x3, tone normal and no meningeal signs Extrem: General: Yes normal to inspection, Yes no pedal edema and Yes no calf tenderness Course Course Course Narrative: -1910--mild leukocytosis of 13.7 likely from vomiting. H&H stable. Potassium elevated to 5.7 > will give 10 of p.o. [place]. -BUN elevated to 25 likely from dehydration. Troponin and BNP WNL XR chest 1V IMPRESSION: 1.? Worsening bilateral patchy airspace opacities suspicious for multifocal pneumonia/atypical pneumonia, less likely hemorrhage. Pulmonary edema felt unlikely. 2.? No appreciable pleural effusions. >> lactic/blood cultures already ordered. Empiric IV cefepime ordered. -1956--patient's tachycardia improving to 109, clinically improving, talking on the phone -2043--COVID-19 positive -2119--ED care transferred to DANYELL Newman pending CTA, CT abdomen/pelvis and admission Medications Administered Discontinued Medications Generic Name Dose Route Start Last Admin Trade Name Freq PRN Reason Stop Dose Admin Sodium Chloride 1,000 mls @ 999 mls/hr 05/19/22 18:15 05/19/22 20:45 Ns IV 05/19/22 19:15 Infused .Q1H1M TYLER Infusion Lactated Ringer's 1,000 mls @ 999 mls/hr 05/19/22 18:30 05/19/22 20:44 Lr IV 05/19/22 19:30 999 mls/hr .Q1H1M TYLER Administration Cefepime HCl 2 gm/ Sodium 50 mls @ 100 mls/hr 05/19/22 19:11 05/19/22 20:16 Chloride IV 05/19/22 19:40 Infused ONCE ONE Infusion Iohexol 100 ml 05/19/22 20:45 05/19/22 20:45 Iohexol 350 Mg/Ml 100 Ml Infus..Btl IV 05/19/22 20:46 85 ml ONCE ONE Administration Sodium Zirconium Cyclosilicate 10 gm 05/19/22 18:32 05/19/22 20:40 Sodium Zirconium Cyclosilicate 10 Gm Powd.Pack PO 05/19/22 18:33 10 gm ONCE ONE Administration MDM - Chest Pain MDM Narrative Medical decision making narrative: 31-year-old male with past medical history of tobacco use disorder, marijuana use, spontaneous pneumothorax, presenting to the ED complaining of epigastric abdominal pain feels like a ball in chest/stomach with decreased/inability to tolerate p.o. x 2 weeks. On exam tachycardic, tachypneic, cachectic, shallow breath sounds, abdomen soft with epigastric tenderness, no rebound or guarding, no pedal edema. Concern for pneumothorax vs PE vs dehydration/metabolic abnormality vs pancreatitis or cholecystitis/cholelithiasis. Concern for HIV/aids. Lower suspicion for ACS, DVT, appendicitis or diverticulitis Low suspicion for severe sepsis at this time Plan: EKG, labs, UA, CXR, IVF, CTA/Abd/pelvis CT Differential Diagnosis Differential diagnosis: Likely pneumothorax, stable angina, atypical chest pain, st elevation myocardial infarction, chest pain and biliary colic Medical Records Data Attestation: I reviewed the patient's medical records. Lab Data Attestation: I reviewed the patient's lab results. Result diagrams: 05/19/22 17:36 05/19/22 17:36 Labs: Lab Results 05/19/22 05/19/22 05/19/22 Range/Units 17:36 17:36 17:36 WBC 13.7 H (4.8-10.8) X10*3/uL RBC 4.34 L (4.60-5.80) X10*6/uL Hgb 12.6 L (14.0-18.0) g/dl Hct 38.2 L (42.0-52.0) % MCV 88.0 (80.0-98.0) fL MCH 29.0 (27.0-33.0) pg MCHC 33.0 (31.0-36.0) g/dl RDW 14.0 (11.0-16.0) % Plt Count 567 H D (160-400) X10*3/uL MPV 11.3 (9.4-12.4) fL Immature Gran % (Auto) 0.7 H (0.0-0.4) % Neut % (Auto) 93.5 H (45-73) % Lymph % (Auto) 2.9 L (20-40) % [place] % (Auto) 2.8 (2-11) % Eos % (Auto) 0.0 (0-4) % Baso % (Auto) 0.1 (0-2) % Lymph # (Auto) 0.4 L (1.2-4.9) X10*3/uL [place] # (Auto) 0.4 (0.1-1.2) X10*3/uL Eos # (Auto) 0.0 (0.0-0.4) X10*3/uL Baso # (Auto) 0.0 (0.0-0.2) X10*3/uL Abs Immat Gran (auto) 0.09 H (0.00-0.03) X10*3/uL Absolute Neuts (auto) 12.8 H (2.0-8.3) x10*3/uL Absolute Nucleated RBC 0.000 (0.0-0.012) X10*3/uL Nucleated RBC % (auto) 0.0 (0.0-0.2) /100WBC Smear Tech's Comments VERIFIED Sodium 133 L (135-145) mmol/L Potassium 5.7 H (3.3-5.1) mmol/L Chloride 100 (96-108) mmol/L Carbon Dioxide 21 L (22-29) mmol/L Anion Gap 18 (12-20) BUN 25 H (9-16) mg/dL Creatinine 1.18 (0.5-1.4) mg/dL Estim Creat Clear Calc 59.6 Estimated GFR > 60 Random Glucose 171 H (60-115) mg/dL Lactic Acid (0.5-2.0) mmol/L Calcium 9.7 D (8.4-10.2) mg/dL Magnesium 2.3 (1.6-2.6) mg/dL Total Bilirubin 0.5 (0.0-1.0) mg/dL Direct Bilirubin 0.2 (0.0-0.5) mg/dL AST 18 (5-37) U/L ALT 20 (0-40) U/L Alkaline Phosphatase 106 (39-117) U/L Troponin I High Sens < 3.5 (<3.5-35.0) ng/L B-Natriuretic Peptide (<100) pg/mL Total Protein 8.1 H (6.5-8.0) g/dL Albumin 3.0 L (3.5-5.0) g/dL Lipase 25 (8-78) U/L Influenza Type A (PCR) (Negative) Influenza Type B (PCR) (Negative) RSV RNA Qual (PCR) (Negative) SARS-CoV-2 RNA (RT-PCR) (Negative) 05/19/22 05/19/22 05/19/22 Range/Units 17:36 19:13 19:33 WBC (4.8-10.8) X10*3/uL RBC (4.60-5.80) X10*6/uL Hgb (14.0-18.0) g/dl Hct (42.0-52.0) % MCV (80.0-98.0) fL MCH (27.0-33.0) pg MCHC (31.0-36.0) g/dl RDW (11.0-16.0) % Plt Count (160-400) X10*3/uL MPV (9.4-12.4) fL Immature Gran % (Auto) (0.0-0.4) % Neut % (Auto) (45-73) % Lymph % (Auto) (20-40) % [place] % (Auto) (2-11) % Eos % (Auto) (0-4) % Baso % (Auto) (0-2) % Lymph # (Auto) (1.2-4.9) X10*3/uL [place] # (Auto) (0.1-1.2) X10*3/uL Eos # (Auto) (0.0-0.4) X10*3/uL Baso # (Auto) (0.0-0.2) X10*3/uL Abs Immat Gran (auto) (0.00-0.03) X10*3/uL Absolute Neuts (auto) (2.0-8.3) x10*3/uL Absolute Nucleated RBC (0.0-0.012) X10*3/uL Nucleated RBC % (auto) (0.0-0.2) /100WBC Smear Tech's Comments Sodium (135-145) mmol/L Potassium (3.3-5.1) mmol/L Chloride (96-108) mmol/L Carbon Dioxide (22-29) mmol/L Anion Gap (12-20) BUN (9-16) mg/dL Creatinine (0.5-1.4) mg/dL Estim Creat Clear Calc Estimated GFR Random Glucose (60-115) mg/dL Lactic Acid 2.9 H* (0.5-2.0) mmol/L Calcium (8.4-10.2) mg/dL Magnesium (1.6-2.6) mg/dL Total Bilirubin (0.0-1.0) mg/dL Direct Bilirubin (0.0-0.5) mg/dL AST (5-37) U/L ALT (0-40) U/L Alkaline Phosphatase (39-117) U/L Troponin I High Sens (<3.5-35.0) ng/L B-Natriuretic Peptide < 10 (<100) pg/mL Total Protein (6.5-8.0) g/dL Albumin (3.5-5.0) g/dL Lipase (8-78) U/L Influenza Type A (PCR) NEGATIVE (Negative) Influenza Type B (PCR) NEGATIVE (Negative) RSV RNA Qual (PCR) NEGATIVE (Negative) SARS-CoV-2 RNA (RT-PCR) POSITIVE A (Negative) ECG Data ECG #1: Attestation: I personally reviewed and interpreted this ECG as follows: ECG interpretation date: 05/19/22 ECG interpretation time: 17:23 Interpretation: EKG sinus tachycardia rate of 127. DE interval 122. QTC 406. No STEMI. Nonischemic. Critical Care Time Critical Care Time Critical Care Time: Yes Total Critical Care Time: 45 Attestation: I have personally provided critical care time exclusive of time spent on separately billable procedures. Time includes review of lab data, radiology results, discussion with consultants, and monitoring for potential decompensation. Intervention performed as documented. Discharge Plan Discharge Clinical Impression: Multifocal pneumonia, Acute hyperkalemia, COVID-19 Patient Disposition: Admitted As Inpatient
[2022-05-19 18:05] LABS: Anion Gap 18 (12-20); Blood Urea Nitrogen 25 mg/dL (9-16); Calcium 9.7 mg/dL (8.4-10.2); Carbon Dioxide 21 mmol/L (22-29); Chloride 100 mmol/L (96-108); Creatinine Clr Calc Pharmacy 59.6; Estimated Glomerular Filt Rate > 60; Glucose Random 171 mg/dL (60-115); Potassium 5.7 mmol/L (3.3-5.1); Sodium 133 mmol/L (135-145)
[2022-05-19 18:11] LABS: SLIDE REVIEW VERIFIED
[2022-05-19 18:14] LABS: Troponin-I High Sensitivity < 3.5 ng/L (<3.5-35.0)
[2022-05-19 18:19] LABS: Alanine Aminotransferase 20 U/L (0-40); Alkaline Phosphatase 106 U/L (39-117); Aspartate Amino Transferase 18 U/L (5-37); Bilirubin Direct 0.2 mg/dL (0.0-0.5); Bilirubin Total 0.5 mg/dL (0.0-1.0); Lipase 25 U/L (8-78); Magnesium 2.3 mg/dL (1.6-2.6); Total Protein 8.1 g/dL (6.5-8.0)
[2022-05-19 18:49] LABS: B Type Natriuretic Peptide < 10 pg/mL (<100)
[2022-05-19] MEDS: 0.9 % Sodium Chloride 1,000 ML 999 ML IV (19:08)
[2022-05-19 19:33] VITALS: PULSE 117; RESP 24; TEMP 36.6; O2SAT 98
--- NOTE | 2022-05-19 19:33 | PC.NURSE ---
assumed care of patient at 1900 - patient resting comfortably on stretch, on cardiac rehab nurse HR 110s, RR 30s, in no apparent distress. obtaining blood cultures and nasal swab. iv fluids running, patient to go to CT scan. call finnegan within reach - will continue to monitor.
[2022-05-19 19:39] LABS: Lactic Acid 2.9 mmol/L (0.5-2.0)
[2022-05-19] MEDS: cefEPime HCl 2 GM in 0.9 % Sodium Chloride 50 ML IV (19:44)
[2022-05-19 20:26] LABS: Influenza A PCR NEGATIVE (Negative); Influenza B PCR NEGATIVE (Negative); Resp Syncy Virus RNA Qual PCR NEGATIVE (Negative); SARS COV2 PCR INHOUSE POSITIVE (Negative)
--- NOTE | 2022-05-19 20:29 | PC.NURSE ---
pt was away for testing ,pt just return to his room .
[2022-05-19 20:33] VITALS: BP 108/59; PULSE 110; RESP 36; TEMP 36.8; O2SAT 98
[2022-05-19] MEDS: Sodium Zirconium Cyclosilicate 10 GM POWD.PACK PO (20:40)
[2022-05-19] MEDS: Lactated Ringers 1,000 ML 999 ML IV (20:44)
[2022-05-19] MEDS: iohexoL 350 MG/ML 100 ML INFUS..BTL IV (20:45)
[2022-05-19 21:17] LABS: Reflex Lactate? Lactic Acid Added
[2022-05-19 21:18] VITALS: BP 108/67; PULSE 104; RESP 20; TEMP 36.6; O2SAT 99
[2022-05-19 22:03] LABS: ~Lactic Acid-LAB USE ONLY 1.5 mmol/L (0.5-2.0)
[2022-05-19 22:51] LABS: Anion Gap 15 (12-20); Blood Urea Nitrogen 22 mg/dL (9-16); Calcium 8.3 mg/dL (8.4-10.2); Carbon Dioxide 20 mmol/L (22-29); Chloride 103 mmol/L (96-108); Creatinine Clr Calc Pharmacy 93.8; Estimated Glomerular Filt Rate > 60; Glucose Random 116 mg/dL (60-115); Potassium 5.5 mmol/L (3.3-5.1); Sodium 132 mmol/L (135-145)
[2022-05-20] VITALS (8 sets, daily range): BP systolic 92–108; BP diastolic 50–71; PULSE 98–113; RESP 14–37; TEMP 36.4–37.1; O2SAT 93–99
--- NOTE | 2022-05-20 01:04 | P.HPHOSP_ITS ---
History of Present Illness Date of Service: 05/20/22 Chief Complaint: Pain on swallowing 31-year-old male with past medical history of HIV, 8, COPD, history of pericarditis, presents to the hospital with complaints of difficulty swallowing. Patient reports that he has a significant pain on swallowing solids and l iquids, hot/warm and cold food/liquids. Patient reports that he was given medication by the infectious disease doctor for this but has not improved. He also reports that he has difficulty swallowing he is Bactrim. He reports a cough, no shortness of breath, no fever or chills, no abdominal pain nausea or vomiting, he had 1 episode of diarrhea in the ED, no constipation, no urinary symptoms and no lower extremity edema. Of note patient was seen by infectious disease on 05/15, at that time patient felt to have AIDS defining disease including CD4 count of 32, he also has thrush both aids defining conditions, patient was switched from TMP SMX to Mepron for PJP pneumonia, as he had difficulty swallowing, patient was also given fluconazole for oral thrush. And he was also started on anti-retroviral therapy on that day but he has not started it reports that he is waiting for his medication to arrive next day. On arrival to the ED patient has a temp of 96.7 degrees, heart rate of 137 which is sinus, blood pressure stable Labs are significant for WBC count of 13.7, hemoglobin 12.6, medical of 30.2, sodium of 133, potassium of 5.7, lactic acid of 2.9 improved after IV fluids, COVID-[address] angiogram shows no evidence of central or segmental pulmonary PE, has increased in extent as ground-glass airspace opacities throughout both lungs with mild patchy consolidative opacities in the lower lobes. Review of Systems Review of Systems: Yes all other systems are reviewed and are negative [facility] Medical History AIDS COPD (chronic obstructive pulmonary disease) COVID-19 COVID-19 HIV (human immunodeficiency virus infection) Pericarditis Pneumonia due to COVID-19 virus Spontaneous pneumothorax Spontaneous pneumothorax Tachycardia Tobacco use Family History Mother No active medical problems Father No active medical problems Social History Household Members: Family Housing: House Do you presently have visiting nurse or other home services: No Alcohol intake: former Patient Tobacco Use Status: Former Tobacco user Tobacco use type: Cigarette Cigarette Packs Per Day: 1 Cigarettes Per Day: 20.0 Substance Use Type: Marijuana Advance Directives: No Advance Directives Information Provided: Yes service: No Current occupation: unemployed,did work at [employer] Sexual orientation: MSM Gender identity: Male Meds Allergies Allergy/AdvReac Type Severity Reaction Status Date / Time No Known Allergies Allergy Verified 05/15/22 15:11 Active Medications: Current Medications Acetaminophen (Acetaminophen 325 Mg Tablet) 650 mg PO Q6H PRN PRN Reason: Pain, Mild (Pain Scale 1-3) Atovaquone (Atovaquone 750 Mg/5 Ml Oral.Susp) 1,500 mg PO DAILY TYLER Docusate Sodium (Docusate Sodium 100 Mg Capsule) 100 mg PO DAILY PRN PRN Reason: Constipation Dolutegravir Sodium (Dolutegravir Sodium 50 Mg Tablet) 50 mg PO DAILY TYLER Heparin Sodium (Porcine) (Heparin Sodium,Porcine 5,000 Unit/Ml Vial) 5,000 unit SUBCUT Q12H TYLER Fluconazole (Diflucan) 200 mg in 100 mls @ 100 mls/hr IV Q24H TYLER Sodium Chloride (Ns) 1,000 mls @ 100 mls/hr IVCONT .Q10H TYLER Lamivudine (Lamivudine 150 Mg Tablet) 300 mg PO DAILY ONE Stop: 05/20/22 00:44 Morphine Sulfate (Morphine Sulfate 4 Mg/Ml Cartridge) 4 mg IVPUSH Q4H PRN; Protocol PRN Reason: Pain, Severe (Pain Scale 7-10) Ondansetron HCl (Ondansetron Hcl 4 Mg/2 Ml Vial) 4 mg IVPUSH Q8H PRN PRN Reason: Nausea and Vomiting Pharmacy Consult (Consult Rx Perform Med Rec) 1 each MISCELLANE ONCE PRN PRN Reason: Consult order Sodium Chloride (0.9 % Sodium Chloride Flush 3 Ml Syringe) 3 ml IVFLUSH QSHIFT [facility] Physical Exam Vital Signs and Narrative: Vital Signs: Last Vital Signs Temp 98.2 F 05/20/22 00:00 Pulse 103 H 05/20/22 00:00 Resp 30 H 05/20/22 00:00 BP 97/61 05/20/22 00:00 Pulse Ox 97 05/20/22 00:00 O2 Del Method 05/20/22 00:00 BMI result Body Mass Index 15.1 Const: Other: cachectic General: cooperative and no acute distress Orientation/consciousn ess: patient oriented x3 HEENT: Other: Has significant oral thrush Eyes: General: appearance normal, both eyes and all related structures Resp: Effort & Inspection: normal respiratory effort Auscultation: clear to auscultation bilaterally Cardio: Rate: regular rate Rhythm: regular rhythm GI: Palpation (GI): Soft to palpation Auscultation: normal bowel sounds Skin: General skin exam: no rashes or lesions noted Neuro: General: patient oriented x3 Cognition (Neuro): normal cognition Extrem: General: Yes normal to inspection and Yes no pedal edema Results Labs CBC and Chem 7: 05/19/22 17:36 05/19/22 22:32 Labs: Laboratory Results - last 24 hr 05/19/22 05/19/22 05/19/22 17:36 17:36 17:36 MCV 88.0 MCH 29.0 MCHC 33.0 RDW 14.0 Plt Count 567 H D MPV 11.3 Immature Gran % (Auto) 0.7 H Neut % (Auto) 93.5 H Lymph % (Auto) 2.9 L Gilmer % (Auto) 2.8 Eos % (Auto) 0.0 Baso % (Auto) 0.1 Lymph # (Auto) 0.4 L Gilmer # (Auto) 0.4 Eos # (Auto) 0.0 Baso # (Auto) 0.0 Abs Immat Gran (auto) 0.09 H Absolute Neuts (auto) 12.8 H Absolute Nucleated RBC 0.000 Nucleated RBC % (auto) 0.0 Smear Tech's Comments VERIFIED Anion Gap 18 Estim Creat Clear Calc 59.6 Estimated GFR > 60 Random Glucose 171 H Lactic Acid Lactic Acid F/U @ 2Hr Calcium 9.7 D Magnesium 2.3 Total Bilirubin 0.5 Direct Bilirubin 0.2 AST 18 ALT 20 Alkaline Phosphatase 106 Troponin I High Sens < 3.5 B-Natriuretic Peptide Total Protein 8.1 H Albumin 3.0 L Lipase 25 Influenza Type A (PCR) Influenza Type B (PCR) RSV RNA Qual (PCR) SARS-CoV-2 RNA (RT-PCR) 05/19/22 05/19/22 05/19/22 17:36 19:13 19:33 MCV MCH MCHC RDW Plt Count MPV Immature Gran % (Auto) Neut % (Auto) Lymph % (Auto) Gilmer % (Auto) Eos % (Auto) Baso % (Auto) Lymph # (Auto) Gilmer # (Auto) Eos # (Auto) Baso # (Auto) Abs Immat Gran (auto) Absolute Neuts (auto) Absolute Nucleated RBC Nucleated RBC % (auto) Smear Tech's Comments Anion Gap Estim Creat Clear Calc Estimated GFR Random Glucose Lactic Acid 2.9 H* Lactic Acid F/U @ 2Hr Calcium Magnesium Total Bilirubin Direct Bilirubin AST ALT Alkaline Phosphatase Troponin I High Sens B-Natriuretic Peptide < 10 Total Protein Albumin Lipase Influenza Type A (PCR) NEGATIVE Influenza Type B (PCR) NEGATIVE RSV RNA Qual (PCR) NEGATIVE SARS-CoV-2 RNA (RT-PCR) POSITIVE A 05/19/22 05/19/22 21:42 22:32 MCV MCH MCHC RDW Plt Count MPV Immature Gran % (Auto) Neut % (Auto) Lymph % (Auto) Gilmer % (Auto) Eos % (Auto) Baso % (Auto) Lymph # (Auto) Gilmer # (Auto) Eos # (Auto) Baso # (Auto) Abs Immat Gran (auto) Absolute Neuts (auto) Absolute Nucleated RBC Nucleated RBC % (auto) Smear Tech's Comments Anion Gap 15 Estim Creat Clear Calc 93.8 Estimated GFR > 60 Random Glucose 116 H Lactic Acid Lactic Acid F/U @ 2Hr 1.5 Calcium 8.3 L D Magnesium Total Bilirubin Direct Bilirubin AST ALT Alkaline Phosphatase Troponin I High Sens B-Natriuretic Peptide Total Protein Albumin Lipase Influenza Type A (PCR) Influenza Type B (PCR) RSV RNA Qual (PCR) SARS-CoV-2 RNA (RT-PCR) Imaging Radiologist's Impressions: Impressions Chest X-Ray 05/19/22 18:30 IMPRESSION: 1. Worsening bilateral patchy airspace opacities suspicious for multifocal pneumonia/atypical pneumonia, less likely hemorrhage. Pulmonary edema felt unlikely. 2. No appreciable pleural effusions. Abdomen/Pelvis CT 05/19/22 21:06 IMPRESSION: 1. No evidence of central or segmental pulmonary embolus. Please note evaluation for segmental pulmonary emboli is somewhat limited due to motion artifact. 2. Since prior CT of 04/30/2022, increase in extent of groundglass airspace opacities throughout both lungs with mild patchy consolidative opacities in the lower lobes. Findings suggest worsening atypical pneumonia or pneumonitis. No effusions. 3. No acute intra-abdominal process identified. No evidence of bowel obstruction. VTE: Negative, with limitation as above Chest CTA 05/19/22 21:06 IMPRESSION: 1. No evidence of central or segmental pulmonary embolus. Please note evaluation for segmental pulmonary emboli is somewhat limited due to motion artifact. 2. Since prior CT of 04/30/2022, increase in extent of groundglass airspace opacities throughout both lungs with mild patchy consolidative opacities in the lower lobes. Findings suggest worsening atypical pneumonia or pneumonitis. No effusions. 3. No acute intra-abdominal process identified. No evidence of bowel obstruction. VTE: Negative, with limitation as above Assessment and Plan (1) Oral thrush: Status: Acute (2) Pneumocystis jiroveci pneumonia: Status: Acute (3) Acute hyperkalemia: Status: Acute (4) COVID-19: Status: Acute (5) AIDS: Status: Acute Plan 31-year-old male with past medical history of HIV with a CD4 cell count of 32 measured this month presents to the hospital with complaints of difficulty swallowing found to have significant oral thrush as well as possible PJP pneumonia # oral thrush - in the setting of HIV, AIDS defining - patient was seen by ID, was started on fluconazole on 05/15, at this time will switch to IV, will obtain Gastroenterology consult for possible EGD given his non improvement on fluconazole, infectious Disease consulted for further recommendation and management # likely PJP pneumonia - with a CD4 count of 32 patient likely has PJP pneumonia as seen on chest x-ray with bilateral infiltrates - will switch Bactrim to atovaquone per Infectious Disease - follow cultures - monitor respiratory status - conitnue prednisone 40 daily # acute hyperkalemia - asymptomatic, with no EKG changes - received Lokelma - follow BMP # acute COVID-19 infection - no hypoxia - monitor respiratory status # HIV/AIDS - page patient was to be started on Dolutegravir-lamivudin but has not began regimen yet - will start on this hospitalization - infectious disease consulted DVT prophylaxis: Lovenox Given patient's requirement for further management of oral thrush with possible GI evaluation, as well as PJP pneumonia patient require minimum 2 night inpatient hospital stay for further management and evaluation Quality Stroke Does the patient have a stroke diagnosis?: No VTE Prior VTE?: No VTE Risk Level:: Medical - moderate - high VTE Device Contraindication: Treatment Not Indicated VTE Drug Contraindication: N/A - Med Ordered
--- OUTSIDE RECORDS SUMMARY | 2022-05-20 01:38 | XMS_ITS ---
:1990 Author Care Team Providers Name Role Phone [facility] OTHER [phone] EVELINA HA MD Urologist [phone] MARGARET CHILD Orthopedic Surgeon [phone] MARRY MERCADO [employer] WORKER Primary Care Provider [phone] Allergies Code Code System Name Reaction Severity [...] mcg/actuation nasal spray,suspension C ompleted ? 08/09/2020 [place] 2 sprays every day by intranasal route [...] 50 mcg/actuation nasal spray Completed ? 08/09/2020 [place] 2 sprays every day by intranasal route [...] Information no t available 03/28/2016 US, Echocardiogram [facility] (Outt Non-I nvasive Cardiology Scheduling) [address] [place], [place] [address] (Work Place) 08/28/2016 MRI, Lumbar Spine, W/o Contrast [facility] ([place] [facility]) [address] [place], [place] [address] (Work Place) 12/17/2016 US, Testicle [facility] [address] (Ultrasound) [address] [place], [place] [address] (Work Place) 08/05/2018 XR, Abdomen [facility] [address] (Ultrasound) [address] [place], [place] [address] (Work Place) 01/18/2019 XR, Ankle [facility] [address] [place], [place] [address] (Work Place) 10/23/2020 US, Scrotum [facility] [address] [address] (Work Place) Results Lab Results Date Name Specimen Result Interpretation Description Value Range Status Address ? 10/23/2020 Urinalysis Urine ? Appear/color ? ? Fi nal [facility] W/reflex Referenc e Culture Laborator ies: [address], [place] ? ? Urine ? [place] 1.025 (1.0 Final [facility] chen 07-31 Reference .030 Laboratori es: ) [address], [place] ? ? Urine ? Urine pH 6.0 (5.0 Final [place] -8.0 Reference ) Laboratori es: [address], [place] ? ? Urine ? Urine Albumin negative (neg Final [facility] ) Reference Laboratori es: [address], [place] ? ? Urine ? Urine Glucose negative (neg Final [facility] ) Reference Laboratori es: [address], [place] ? ? Urine ? Urine Ketones negative (neg Final [facility] ) Reference Laboratori es: [address], [place] ? ? Urine ? Urine negative (neg Final [facility] Bilirubin ) Referen ce Laboratori es: [address], [place] ? ? Urine ? Urine negative (neg Final [facility] Hemoglobin ) Refere nce Laboratori es: [address], [place] ? ? Urine ? Urine Nitrite negative (neg Final [facility] ) Reference Laboratori es: [address], [place] ? ? Urine ? Urine negative (neg Final [facility] Leukocyte ) Referen ce Laboratori es: [address], [place] ? ? Urine ? Urobilinogen normal (nor Final [place] mg/dL m) Reference mg/d Laboratori es: [...] ? Urine ? Mucus slight ? Final [place] /lpf Reference Laboratori es: [address], [place] ? ? Urine ? Clarity clear (manoj Final [facility] ar) Reference Laboratori es: [address], [place] ? ? Urine ? Culture culture ? Final [facility] Indication not Refere nce indicate Laborato karthik: d [address], [place] 10/23/2020 CT + NG DNA, Urine ? Urine ? (neg Final [facility] PCR, Urine Chlamydia Amp ) Reference Probe Laboratori es: [address], [place] ? ? Urine ? Urine GC Amp ? (neg Final [place] Probe ) Reference Laboratori es: [address] [...] NG DNA, Normal Urine ? (neg Final [place] PCR, Urine Chlamydia Amp ) Reference Probe Laboratori es: [address], [place] ? ? Normal Urine GC Amp ? (neg Final [place] Probe ) Reference Laboratori es: [address], [place] 06/17/2018 CT + NG DNA, ABNORMAL Urine ? (neg Final [place] PCR, Urine Chlamydia Amp ) Reference Probe Laboratori es: [address], [place] ? ? Normal Urine GC Amp ? (neg Final [facility] Probe ) Reference Laboratori es: [address], [place] 02/25/2017 RPR (Rapid ? Syphilis nonreact ? Iona l [facility] Plasma Screen by Amada blanca Ref [...] ? Urine GC Amp ? (neg Final [place] Probe ) Reference Laboratori es: [address], [place] 02/25/2017 Hsv (1+2) ? Herpes Simplex 9.5 ? F inal [place] Igg Ab, 1 IgG Ab Referen ce Serum Laboratori es: [address], [place] ? ? ? Hsv 2 IgG Ab 0.13 ? Final [place] Reference Laboratori es: [address], [place] 02/25/2017 Hsv (1+2) ? Herpes Simplex ? ? [facility], [facility] Type 1/2 IgM Reference Laboratori es: [address], [place] 09/13/2016 Urinalysis, ? Appear/color ? ? F inal [facility] Complete Referenc e Laboratori es: [address], [place] ? ? ? [place] 1.027 (1.0 Final [place] 02- Reference .030 Laboratori es: ) [address], [place] ? ? ? Urine pH 5.0 (4.0 Final [facility] -8.0 Reference ) Laboratori es: [address], [place] ? ? ? Urine Albumin negative (neg Final [place] ) Reference Laboratori es: [address], [place] ? ? ? Urine Glucose negative (neg Final [facility] ) Reference Laboratori es: [address], [place] ? ? ? Urine Ketones negative (neg Final [place] ) Reference Laboratori es: [address], [place] ? ? ? Urine negative (neg Final [facility] Bilirubin ) Referen ce Laboratori es: [address], [place] ? ? ? Urine negative (neg Final [place] Hemoglobn ) Referen ce Laboratori es: [address], [place] ? ? ? Urine Nitrite negative (neg Final [facility] ) Reference Laboratori es: [address], [place] ? ? ? Urine negative (neg Final [place] Leukocyte ) Referen ce Laboratori es: [address], [place] ? ? ? Urobilinogen normal (nor Final [place] mg/dL m) Reference mg/d Laboratori es: [...] ? Squamous Epith <1 /hpf ? Final [facility] Reference Laboratori es: [address], [place] ? ? ? Hyaline Cast 1 lpf (0-2 Final [place] ) Reference lpf Laboratori es: [address], [place] 07/05/2015 Urinalysis, ? Appear/color ? ? F inal [facility] Complete Referenc e Laboratori es: [address], [place] ? ? ? [place] 1.026 (1.0 Final [place] 02- Reference .030 Laboratori es: ) [address], [place] ? ? ? Urine pH 6.0 (4.0 Final [place] -8.0 Reference ) Laboratori es: [address], [place] ? ? ? Urine Albumin negative (neg Final [facility] ) Reference Laboratori es: [address], [place] ? ? ? Urine Glucose negative (neg Final [facility] ) Reference Laboratori es: [address], [place] ? ? ? Urine Ketones negative (neg Final [facility] ) Reference Laboratori es: [address], [place] ? ? ? Urine negative (neg Final [facility] Bilirubin ) Referen ce Laboratori es: [address], [place] ? ? ? Urine negative (neg Final [facility] Hemoglobn ) Referen ce Laboratori es: [address], [place] ? ? ? Urine Nitrite negative (neg Final [facility] ) Reference Laboratori es: [address], [place] ? ? ? Urine negative (neg Final [facility] Leukocyte ) Referen ce Laboratori es: [address], [place] ? ? ? Urobilinogen normal (nor Final [place] mg/dL m) Reference mg/d Laboratori es: L [address], [place] ? ? ? Urine WBC's <1 /hpf (0-5 Final [place] ) Reference /hpf Laboratori es: [address], [place] ? ? ? Urine RBC's none (<3) Final [place] seen /hpf Reference /hpf Laboratori es: [address], [place] ? ? ABNORMAL Bacteria slight (neg Final [facility] hpf ) Reference hpf Laboratori es: [address], [place] ? ? ? Mucus slight ? Final [facility] /lpf Reference Laboratori es: [address], [place] ? ? ? Hyaline Cast 1 lpf (0-2 Final [facility] ) Reference lpf Laboratori es: [address], [place] 07/05/2015 CT + NG DNA, ? Urine ? ? Final [facility] PCR, Chlamydia Amp Ref erence Unspecified Probe Labor atories: Specimen [address], [place] ? ? ? Urine GC Amp ? ? Final [place] Probe Reference Laboratori es: [address], [place] 03/24/2015 CBC W/ Auto ? Wbc 5.8 (4.0 Final [facility] Diff K/mm3 -11. Reference 0) Laboratori es: K/mm [address], [place] ? ? ? Rbc 5.29 (4.7 Final [place] M/mm3 0-6. Reference 10) Laboratori es: M/mm [address], [place] ? ? ? Hgb 15.8 (14. Final [place] gm/dL 0-18 Reference .0) Laboratori es: gm/d [address], [place] ? ? ? Hct 46.8 % (42. Final [place] 0-52 Reference .0) Laboratori es: % [address], [place] ? ? ? Mcv 88.5 fL (80. Final [facility] 0-94 Reference .0) Laboratori es: fL [address], [place] ? ? ? Mch 29.9 pg (27. Final [facility] 0-34 Reference .0) Laboratori es: pg [address], [place] ? ? ? Mchc 33.8 % (33. Final [place] 0-37 Reference .0) Laboratori es: % [address], [place] ? ? ? Plt 256 (150 Final [place] K/mm3 -460 Reference ) Laboratori es: K/mm [...] [address], [place] ? ? ? [place]# 0.6 (0.4 Final [facility] K/mm3 -1.3 Reference [...] ? ? Baso 0.7 % (0-2 Final [place] ) % Reference Laboratori es: [address], [place] ? ? ? Imm Gran 0.5 % (0.0 Final [facility] -0.6 Reference ) % Laboratori es: Renny Awad, [place] 03/24/2015 H Pylori ? H. Pylori IgG ? ? Fin al [facility] Igm+igg+iga Refer ence Ab, Serum Laborat ories: Renny Awad, [place] 04/19/2014 NG DNA, PCR, ? Urine GC Amp ? ? Final [facility] Urine Probe Reference Laboratori es: Renny Awad, [place] 04/19/2014 CT, DNA, ? Urine ? ? Final [facility] chen Qual, PCR, Chlamydia Amp Reference Unspecified Probe Labor atories: Specimen [address], [place] 04/19/2014 Chlamydia, ? No observation ? ? ? RNA, Urine recorded. Past Encounters 11/30/2021 Adult Health Examination; Anxiety; Sever e Major Depression, Single Episode, without Psychotic Features; Seborrheic Dermatitis; Exposure to Toxic Waste, Occupational; Inadequate Immune Status Marry Mercado, COURT WORKER: [address] [id number], Ph. Social History Tobacco Smoking Status Never Smoker Vaccine List Vaccine Type COVID-19, mRNA, LNP-S, PF, 30 mcg/0.3 mL dose ([email or web address]) 08/11/2020 09/07/2020 12/18/2020?0.3 mL DTaP 1990 1990 [...] lbs 31.4 kg/m2 126/72 mm[Hg] 10/20/2020 03:30PM [id number] Height 5 ft 10 in 09/29/2020 09:40AM [id number] Height 5 ft 10 in 09/05/2020 03:30PM [id number] Height 5 ft 10 in 08/09/2020 03:30PM [...]
--- NOTE | 2022-05-20 02:02 | PC.NURSE ---
FLUCONAZOLE ANTI FUNGAL MEDICATION NOT AVAILABLE IN [facility] - CHECKED WITH PHARMACY WHO VERIFIED MEDICATION NOT AVAILABLE - MD ARAYA NOTIFIED. CHARTED AGAINST MED IN MAR
[2022-05-20] MEDS: Heparin Sodium,Porcine 5,000 UNIT/ML VIAL 5000 UNIT SUBCUT ×2 (02:12→13:26)
[2022-05-20] MEDS: 0.9 % Sodium Chloride 1,000 ML 100 ML IVCONT ×3 (02:13→21:24)
[2022-05-20] MEDS: lamiVUDine 150 MG TABLET 300 MG PO (03:16)
[2022-05-20 06:25] LABS: Anion Gap 13 (12-20); Blood Urea Nitrogen 21 mg/dL (9-16); Calcium 9.2 mg/dL (8.4-10.2); Carbon Dioxide 24 mmol/L (22-29); Chloride 104 mmol/L (96-108); Creatinine Clr Calc Pharmacy 91.4; Estimated Glomerular Filt Rate > 60; Glucose Random 84 mg/dL (60-115); Potassium 5.9 mmol/L (3.3-5.1); Sodium 135 mmol/L (135-145)
[2022-05-20 06:26] LABS: Basophils Percent Auto 0.1 % (0-2); Eosinophils Percent Auto 0.4 % (0-4); Hematocrit 32.3 % (42.0-52.0); Hemoglobin 10.6 g/dl (14.0-18.0); Imm Gran Abs Auto 0.04 X10*3/uL (0.00-0.03); Imm Gran Pct Auto 0.4 % (0.0-0.4); Lymphocytes Absolute Auto 0.4 X10*3/uL (1.2-4.9); Lymphocytes Percent Auto 3.8 % (20-40); MANUAL DIFF FLAG SCAN; Mean Corpuscular HGB Conc 32.8 g/dl (31.0-36.0); Mean Corpuscular Hemoglobin 28.9 pg (27.0-33.0); Mean Platelet Volume 11.4 fL (9.4-12.4); Monocytes Absolute Auto 0.4 X10*3/uL (0.1-1.2); Monocytes Percent Auto 3.9 % (2-11); Neutrophils Absolute Auto 9.7 x10*3/uL (2.0-8.3); Neutrophils Percent Auto 91.4 % (45-73); Platelet Count 477 X10*3/uL (160-400); Red Blood Count 3.67 X10*6/uL (4.60-5.80); Red Cell Distribution Width 14.1 % (11.0-16.0); SCAN SMEAR FLAG 1; White Blood Count 10.6 X10*3/uL (4.8-10.8)
[2022-05-20 06:57] LABS: SLIDE REVIEW VERIFIED
[2022-05-20] MEDS: Dolutegravir Sodium 50 MG TABLET PO (08:54)
[2022-05-20] MEDS: predniSONE 20 MG TABLET 40 MG PO (08:54)
[2022-05-20] MEDS: 0.9 % Sodium Chloride Flush 3 ML SYRINGE IVFLUSH (08:55)
[2022-05-20] MEDS: Atovaquone 750 MG/5 ML ORAL.SUSP 1500 MG PO (09:15)
--- NOTE | 2022-05-20 10:03 | MHC.CM.PN ---
asa interpertor apobreann garcía pt who is covid positive pt lives with his sister and francisco he is independet does n ot anticapaye needing servuces when dcd
--- NOTE | 2022-05-20 10:18 | PHA.MEDREC ---
Pharmacy Consult ? Medication Reconciliation Pharmacy has completed the medication reconciliation. Patient had medications with him. Patient reported he had medications to be picked up at his pharmacy. Confirmed with [facility] it is Dovato and Atorvaquone. Viry Choi, PharmD
[2022-05-20] MEDS: Sodium Zirconium Cyclosilicate 10 GM POWD.PACK PO (11:11)
--- NOTE | 2022-05-20 14:38 | PM.EVENT ---
Event Note Date of Service: 05/20/22 Event Note: 31-year-old male with past medical history of HIV with a CD4 cell count of 32 measured this month presents to the hospital with complaints of difficulty swallowing found to have significant oral thrush as well as possible PJP pneumonia Oral thrush with possible herpectic esophagitis Likely secondary to HIV, recent diagnosis Followed by Dr. Blanchard, started on fluconazole Has burning all the way down the esophagus, more likely has esophagitis, will consult GI for EGD IV PPI Start IV acyclovir PCP pneumonia CD4 count 32 Continue Bactrim, atovaquone Continue prednisone 40 mg daily Supplemental oxygen as needed Acute hyperkalemia Lokelma Acute COVID-19 infection No hypoxia HIV/AIDS page patient was to be started on Dolutegravir-lamivudin but has not began regimen yet Id following DVT prophylaxis: Lovenox Attending Dr. Bartlett Given patient's requirement for further management of oral thrush with possible GI evaluation, as well as PCP
[2022-05-20] MEDS: Pantoprazole Sodium 40 MG/10 ML VIAL IVPUSH (16:06)
--- NOTE | 2022-05-20 17:42 | MHC.SHP ---
Pre-Procedural Eval Section A Date of Service: 05/21/22 The patient is an INPATIENT: Yes The History & Physical has been completed within 30 days and I have reviewed it.: Yes Section B Chief Complaint: Esophagitis,PNA, HIV Allergies: Allergies Allergy/AdvReac Type Severity Reaction Status Date / Time No Known Allergies Allergy Verified 05/15/22 15:11 Plan I have reviewed the history and physical and performed a pertinent physical examination on my patient. No changes have occurred unless specified.
--- NOTE | 2022-05-20 17:47 | P.EN_ITS ---
Event Note Date of Service: 05/20/22 Event Note: GI Consult-Full note dictated-History from patient with a biomedical equipment technician, and from the EMR. Imp: 31 yo male with HIV infection/AIDS with odynophagia/anorexia/significant weight loss. He has also been having some loose stools over the past couple of days. Rec: R/O opportunistic infection of esophagus with [place], HSV, or CMV with upper endoscopy and biopsies with MAC with me or Dr. Diehl on Friday05/21/2022. Full consent obtained from the patient for this, including risks of bleeding and perforation. R/O small bowel enteropathy with duodenal biopsies. R/O UGI neoplasm re: anorexia, weight loss. R/O enteric infection with stool specimens. D/W patient in detail and he is comfortable with this plan. Thanks.
[2022-05-20 18:53] LABS: Leukocytes Stool Qualitative MOD: 3-9/OIF (NEGATIVE)
[2022-05-20 19:33] LABS: CDiff Gene PCR NEGATIVE (Negative)
[2022-05-20] MEDS: Morphine Sulfate 4 MG/ML CARTRIDGE IVPUSH (19:55)
--- NOTE | 2022-05-20 22:55 | W.PM.IDCN ---
History of Present Illness Data of Consult Service Date: 05/20/22 Requesting physician: Dilcia Laguerre Primary Care Provider: Unknown Physician HPI Reason for consult: dysphagia He presents with dysphagia and fatigue with tachycardia. He said he wasnt able to eat for a week. He was taking Mepron to prevent PJP as couldnt swallow Bactrim He was on steroids for lung disease. [facility] Past Medical History Medical History AIDS COPD (chronic obstructive pulmonary disease) COVID-19 COVID-19 HIV (human immunodeficiency virus infection) Pericarditis Pneumonia due to COVID-19 virus Spontaneous pneumothorax Spontaneous pneumothorax Tachycardia Tobacco use Family History Family History Mother No active medical problems Father No active medical problems Family history: reviewed and not pertinent Social History Social History Household Members: Significant Other and Family Caregiver staying overnight: No Housing: Apartment Do you presently have visiting nurse or other home services: No Unable to assess alcohol history related to: Unable to respond Alcohol intake: former Patient Tobacco Use Status: Former Tobacco user Quit Date: apr 18 2022 Tobacco use type: Cigarette Cigarette Packs Per Day: 1 Cigarettes Per Day: 20.0 e-Cigarette/Vaping Use: Former Use Substance Use Type: Marijuana service: No Current occupation: unemployed,did work at [employer] Sexual orientation: MSM Gender identity: Male Meds Allergies Allergy/AdvReac Type Severity Reaction Status Date / Time No Known Allergies Allergy Verified 05/15/22 15:11 Active Medications: Current Medications Acetaminophen (Acetaminophen 325 Mg Tablet) 650 mg PO Q6H PRN PRN Reason: Pain, Mild (Pain Scale 1-3) Atovaquone (Atovaquone 750 Mg/5 Ml Oral.Susp) 1,500 mg PO DAILY COUNTS INCLUDE 234 BEDS AT THE [facility] Last Admin: 05/20/22 09:15 Dose: 1,500 mg Docusate Sodium (Docusate Sodium 100 Mg Capsule) 100 mg PO DAILY PRN PRN Reason: Constipation Dolutegravir Sodium (Dolutegravir Sodium 50 Mg Tablet) 50 mg PO DAILY COUNTS INCLUDE 234 BEDS AT THE [facility] Last Admin: 05/20/22 08:54 Dose: 50 mg Heparin Sodium (Porcine) (Heparin Sodium,Porcine 5,000 Unit/Ml Vial) 5,000 unit SUBCUT Q12H COUNTS INCLUDE 234 BEDS AT THE [facility] Last Admin: 05/20/22 13:26 Dose: 5,000 unit Fluconazole (Diflucan) 200 mg in 100 mls @ 100 mls/hr IV Q24H COUNTS INCLUDE 234 BEDS AT THE [facility] Last Admin: 05/20/22 02:02 Dose: Not Given Sodium Chloride (Ns) 1,000 mls @ 100 mls/hr IVCONT .Q10H COUNTS INCLUDE 234 BEDS AT THE [facility] Last Admin: 05/20/22 21:24 Dose: 100 mls/hr Acyclovir Sodium 232.5 mg/ (Sodium Chloride) 104.65 mls @ 104.65 mls/hr IV Q8H COUNTS INCLUDE 234 BEDS AT THE [facility] Last Infusion: 05/20/22 18:53 Dose: Infused Morphine Sulfate (Morphine Sulfate 4 Mg/Ml Cartridge) 4 mg IVPUSH Q4H PRN; Protocol PRN Reason: Pain, Severe (Pain Scale 7-10) Last Admin: 05/20/22 19:55 Dose: 4 mg Ondansetron HCl (Ondansetron Hcl 4 Mg/2 Ml Vial) 4 mg IVPUSH Q8H PRN PRN Reason: Nausea and Vomiting Pantoprazole Sodium (Pantoprazole Sodium 40 Mg/10 Ml Vial) 40 mg IVPUSH BID@0630,1630 COUNTS INCLUDE 234 BEDS AT THE [facility] Last Admin: 05/20/22 16:06 Dose: 40 mg Pharmacy Consult (Consult Rx Perform Med Rec) 1 each MISCELLANE ONCE PRN PRN Reason: Consult order Prednisone (Prednisone 20 Mg Tablet) 40 mg PO DAILY COUNTS INCLUDE 234 BEDS AT THE [facility] Last Admin: 05/20/22 08:54 Dose: 40 mg Sodium Chloride (0.9 % Sodium Chloride Flush 3 Ml Syringe) 3 ml IVFLUSH QSHIFT COUNTS INCLUDE 234 BEDS AT THE [facility] Last Admin: 05/20/22 16:04 Dose: Not Given Home Medications Medication Instructions Recorded Confirmed Last Taken Type atovaquone 750 mg/5 mL oral 1,500 mg PO DAILY 05/20/22 05/20/22 Unknown History suspension Physical Exam Vital Signs: Vital Signs: Last Vital Signs Temp 97.8 F 05/20/22 19:37 Pulse 104 H 05/20/22 19:37 Resp 16 05/20/22 19:37 BP 92/54 L 05/20/22 19:37 Pulse Ox 99 05/20/22 16:00 O2 Del Method 05/20/22 19:37 BMI result Body Mass Index 15.1 Const: General: cooperative HEENT: Head: Yes normal to inspection Face and sinus: Yes normal facial exam Mouth: Normal oral and palatal mucosa present Teeth and gingiva: dentition normal Eyes: Pupils: Equal, round and reactive pupils present Resp: Effort & Inspection: normal respiratory effort Cardio: Rate: regular rate Rhythm: regular rhythm GI: Palpation (GI): Soft to palpation and nontender : General: Yes no CVA tenderness Back/Spine/Pelvis: Back: no CVA tenderness Skin: General skin exam: no rashes or lesions noted Neuro: General: moves all extremities Cranial nerves: Yes Equal, round and reactive pupils present Extrem: General: Yes normal to inspection Psych: Appearance: grossly normal Results Labs CBC & Chem 7: 05/20/22 05:24 05/20/22 05:24 Labs: Short CBC 05/20/22 Range/Units 05:24 WBC 10.6 (4.8-10.8) X10*3/uL Hgb 10.6 L (14.0-18.0) g/dl Hct 32.3 L (42.0-52.0) % Plt Count 477 H (160-400) X10*3/uL BMP 05/20/22 05:24 Sodium 135 Potassium 5.9 H Chloride 104 Carbon Dioxide 24 BUN 21 H Creatinine 0.77 Calcium 9.2 D Liver Function 05/19/22 Range/Units 17:36 Total Bilirubin 0.5 (0.0-1.0) mg/dL Direct Bilirubin 0.2 (0.0-0.5) mg/dL AST 18 (5-37) U/L ALT 20 (0-40) U/L Alkaline Phosphatase 106 (39-117) U/L Albumin 3.0 L (3.5-5.0) g/dL Microbiology Microbiology Results: Microbiology 05/19/22 19:33 Blood - Venous Blood Culture - Preliminary No growth after 24 hours. 05/19/22 19:33 Blood - Venous Blood Culture - Preliminary No growth after 24 hours. Assessment and Plan (1) HIV (human immunodeficiency virus infection): Status: Acute He has dysphagia,possible herpes simplex There was no evidence of thrush NKDA He has not started Dovato for HIV yet but has script He goes to [facility] Plan Continue Mepron PJP prevention. Start Dovato when able. Upper endoscopy evulate esophagus for viral,fungal etiology
[2022-05-21] VITALS (9 sets, daily range): BP systolic 87–145; BP diastolic 44–71; PULSE 86–115; RESP 14–24; TEMP 36–37.3; O2SAT 92–100; BMI 15.1
[2022-05-21] MEDS: Magnesium Hydrox/Alum Hydrox 30 ML ORAL.SUSP 15 ML PO (00:26)
--- NOTE | 2022-05-21 00:30 | CONS_ITS ---
DATE OF SERVICE: 05/20/2022 REASON FOR CONSULTATION: Odynophagia, anorexia, and weight loss. HISTORY OF PRESENT ILLNESS: Obtained with a adjunct faculty for medical terminology and via the EMR. The patient is a 31-year-old male with a recent diagnosis of HIV infection and AIDS who has had a significant amount of weight loss over the past month or two and more recently has had persistent odynophagia despite outpatient treatment with fluconazole. He was diagnosed with HIV and AIDS earlier this fall when he was admitted with problems including a pneumothorax, pneumonia, and COVID infection. He did have a chest tube placed and received antibiotic therapy. He was readmitted here due to his odynophagia, difficulty eating, and continued weight loss. He also has noted some loose bowel movements over the past couple of days but without any hematochezia nor melena. He denies any abdominal pain. He has not noticed any jaundice. Prior to the past couple of months, he denies any chronic GI complaints. He denies any travel nor ill contacts. MEDICATIONS: His present medications include acyclovir, Mepron, Colace, acetaminophen, fluconazole, subcu heparin, Tivicay, morphine p.r.n., Zofran p.r.n., IV pantoprazole, prednisone 40 mg daily. PAST MEDICAL HISTORY: Recent diagnosis of HIV and AIDS. He denies any preceding medical problems such as diabetes, asthma, nor heart disease. He denies any significant surgeries. Pneumothorax and pneumonia as above. SOCIAL HISTORY: He describes a monogamous relationship with a male partner. He denies tobacco use. He does not use any significant amounts of alcohol. He had previously been working at [employer] FAMILY HISTORY: Noncontributory. REVIEW OF SYSTEMS: CONSTITUTIONAL: He has been feeling poorly in regard to his appetite, energy level, and experiencing significant weight loss. CARDIAC: No chest pain. PULMONARY: No coughing or hemoptysis. GI: As above. URINARY: No dysuria, no hematuria. PHYSICAL EXAMINATION: GENERAL: The patient is a thin, young male who has obviously lost weight with bitemporal wasting. SKIN: Warm and dry. Anicteric sclerae. CARDIAC: Normal S1, S2. ABDOMEN: Soft, nondistended, nontender without mass. LABORATORY DATA: White blood cell count 10.6, hemoglobin 10.6, MCV 88, platelets 477,000. Sodium 135, potassium 5.9, BUN 21, creatinine 0.8. Liver profile was normal. Albumin 3.0, lipase 25. He had a CT scan of his chest, abdomen, and pelvis on admission that describes no findings of pulmonary emboli, but there is increase in extensive ground-glass airspace opacities throughout both lungs suggestive of worsening atypical pneumonia or pneumonitis. There were no effusions. There was no acute intraabdominal process noted. IMPRESSION: In regard to the patient's gastrointestinal symptoms, I would recommend upper endoscopy to rule out any component of infectious esophagitis including [place], herpes, and/or cytomegalovirus. Small bowel biopsies can be obtained at that time to rule out any component of enteropathy in relation to human immunodeficiency viruses and acquired immune deficiency syndrome. It also would be important to rule out any type of upper gastrointestinal neoplasm in relation to human immunodeficiency viruses and acquired immune deficiency syndrome as well. Full consent has been obtained from him for the endoscopy, including risks of bleeding and perforation. At this point, he appears stable for the procedure, but if his pulmonary status deteriorates then the procedure may need to be postponed. I have also ordered stool specimens to rule out any type of enteric infection in regard to the recent onset of diarrhea. This has been discussed with the patient in detail, and he is comfortable with the plan. Thanks for the consultation. MD VARUN Hinojosa/BHARATH / [id number] MTDD
[2022-05-21] MEDS: Morphine Sulfate 4 MG/ML CARTRIDGE IVPUSH ×2 (00:53→05:00)
[2022-05-21] MEDS: Fluconazole in NaCl,Iso-Osm 200 MG/100 ML PIGGYBACK 100 MG IV (01:00)
[2022-05-21] MEDS: 0.9 % Sodium Chloride Flush 3 ML SYRINGE IVFLUSH (01:04)
--- NOTE | 2022-05-21 01:45 | PC.NURSE ---
Patient complaint of acid reflux notified DR one time dose of Malox given PO with good effect.
[2022-05-21] MEDS: Pantoprazole Sodium 40 MG/10 ML VIAL IVPUSH ×2 (05:04→18:16)
[2022-05-21 07:07] LABS: INTERNATIONAL NORM RATIO 0.9 (0.9-1.1); Prothrombin Time 10.6 SEC (10.0-13.1)
[2022-05-21 07:39] LABS: Anion Gap 14 (12-20); Blood Urea Nitrogen 18 mg/dL (9-16); Calcium 8.9 mg/dL (8.4-10.2); Carbon Dioxide 22 mmol/L (22-29); Chloride 106 mmol/L (96-108); Creatinine Clr Calc Pharmacy 91.4; Estimated Glomerular Filt Rate > 60; Glucose Random 70 mg/dL (60-115); Potassium 4.7 mmol/L (3.3-5.1); Sodium 137 mmol/L (135-145)
[2022-05-21] MEDS: Dolutegravir Sodium 50 MG TABLET PO (07:48)
[2022-05-21] MEDS: predniSONE 20 MG TABLET 40 MG PO (07:48)
[2022-05-21] MEDS: 0.9 % Sodium Chloride 1,000 ML 100 ML IVCONT (10:00)
[2022-05-21] MEDS: Atovaquone 750 MG/5 ML ORAL.SUSP 1500 MG PO (10:03)
[2022-05-21 10:11] LABS: Adenovirus F 40/41 Not Detected (Not Detect.); Astrovirus Not Detected (Not Detect.); Campylobacter Detected (Not Detect.); Cryptosporidium Not Detected (Not Detect.); Cyclospora cayetanensis Not Detected (Not Detect.); E. coli EAEC Not Detected (Not Detect.); E. coli EPEC Not Detected (Not Detect.); E. coli ETEC Not Detected (Not Detect.); E. coli STEC Not Detected (Not Detect.); Entamoeba histolytica Not Detected (Not Detect.); Giardia lamblia Not Detected (Not Detect.); Norovirus GI/GII Not Detected (Not Detect.); Plesiomonas shigelloides Not Detected (Not Detect.); Rotavirus A Not Detected (Not Detect.); Salmonella Not Detected (Not Detect.); Shigella sp./EIEC Not Detected (Not Detect.); Vibrio Not Detected (Not Detect.); Vibrio Cholerae Not Detected (Not Detect.); Yersinia enterocolitica Not Detected (Not Detect.)
[2022-05-21 10:12] LABS: Sapovirus Not Detected (Not Detect.)
--- NOTE | 2022-05-21 10:44 | HO.PM.IMPN ---
Subjective Subjective Date of Service: 05/21/22 Review of Systems Followup PJP PNA, esophagitis Throat feeling better denies nausea, vomiting, diarrhea Physical Exam Vital Signs: Vital Signs: Last Vital Signs Temp 98.7 F 05/21/22 07:31 Pulse 115 H 05/21/22 07:31 Resp 20 05/21/22 07:31 BP 128/71 05/21/22 07:31 Pulse Ox 93 05/21/22 07:31 O2 Del Method 05/21/22 07:31 BMI result Body Mass Index 15.1 Appearing in no acute distress, thin lung sounds are clear to auscultation heart regular rate rhythm, clear S1, S2 positive bowel sounds, abdomen is soft, nontender neuro patient is alert x3, no focal deficits Objective Data Active Medications Acetaminophen (Acetaminophen 325 Mg Tablet) 650 mg PO Q6H PRN PRN Reason: Pain, Mild (Pain Scale 1-3) Atovaquone (Atovaquone 750 Mg/5 Ml Oral.Susp) 1,500 mg PO DAILY [facility] [place] Last Admin: 05/21/22 10:03 Dose: 1,500 mg Documented By: ALEX Docusate Sodium (Docusate Sodium 100 Mg Capsule) 100 mg PO DAILY PRN PRN Reason: Constipation Dolutegravir Sodium (Dolutegravir Sodium 50 Mg Tablet) 50 mg PO DAILY [facility] [place] Last Admin: 05/21/22 07:48 Dose: 50 mg Documented By: ALEX Heparin Sodium (Porcine) (Heparin Sodium,Porcine 5,000 Unit/Ml Vial) 5,000 unit SUBCUT Q12H [facility] [place] Last Admin: 05/20/22 13:26 Dose: 5,000 unit Documented By: SHARATH Fluconazole (Diflucan) 200 mg in 100 mls @ 100 mls/hr IV Q24H [facility] [place] Last Infusion: 05/21/22 02:00 Dose: 0 mls/hr Documented By: CHARLES Sodium Chloride (Ns) 1,000 mls @ 100 mls/hr IVCONT .Q10H [facility] [place] Last Admin: 05/21/22 10:00 Dose: 100 mls/hr Documented By: ALEX Acyclovir Sodium 232.5 mg/ (Sodium Chloride) 104.65 mls @ 104.65 mls/hr IV Q8H [facility] [place] Last Admin: 05/21/22 08:21 Dose: 104.65 mls/hr Documented By: ALEX Morphine Sulfate (Morphine Sulfate 4 Mg/Ml Cartridge) 4 mg IVPUSH Q4H PRN; Protocol PRN Reason: Pain, Severe (Pain Scale 7-10) Last Admin: 05/21/22 05:00 Dose: 4 mg Documented By: CHARLES Ondansetron HCl (Ondansetron Hcl 4 Mg/2 Ml Vial) 4 mg IVPUSH Q8H PRN PRN Reason: Nausea and Vomiting Pantoprazole Sodium (Pantoprazole Sodium 40 Mg/10 Ml Vial) 40 mg IVPUSH BID@0630,1630 [facility] [place] Last Admin: 05/21/22 05:04 Dose: 40 mg Documented By: CHARLES Pharmacy Consult (Consult Rx Perform Med Rec) 1 each MISCELLANE ONCE PRN PRN Reason: Consult order Prednisone (Prednisone 20 Mg Tablet) 40 mg PO DAILY [facility] [place] Last Admin: 05/21/22 07:48 Dose: 40 mg Documented By: ALEX Sodium Chloride (0.9 % Sodium Chloride Flush 3 Ml Syringe) 3 ml IVFLUSH QSHIFT [facility] [place] Last Admin: 05/21/22 08:20 Dose: Not Given Documented By: ALEX Non-Admin Reason: IV Running Labs CBC & Chem 7: 05/20/22 05:24 05/21/22 06:44 Labs: Laboratory Results - last 24 hr 05/20/22 05/20/22 05/20/22 18:00 18:00 18:00 PT INR Anion Gap Estim Creat Clear Calc Estimated GFR Random Glucose Calcium Stool Leukocytes, Qual MOD: 3-9/OIF Stl C. cayetanensis PCR Not Detected Stool Rotavirus A PCR Not Detected Stl Adenov F 40/41 PCR Not Detected Stool Astrovirus (PCR) Not Detected Stool Campylobacter PCR Detected A Stool Cryptosporidium PCR Not Detected Stl Sh Tox Pr E STEC PCR Not Detected Stool E coli O157 PCR Not applicable Stl Enterotoxigenic E PCR Not Detected Stool EPEC (PCR) Not Detected Stool EAEC (PCR) Not Detected Stl E. histolytica PCR Not Detected Stool Giardia Lamblia PCR Not Detected Stl P. shigelloides PCR Not Detected Stool Salmonella PCR Not Detected Stool Sapovirus (PCR) Not Detected Stl Shigella/EIEC PCR Not Detected St Y.enterocolitica PCR Not Detected Stool Vibrio (PCR) Not Detected Stl Vibrio cholerae PCR Not Detected Stl Norovirus GI/GII PCR Not Detected C. difficile Tox B Gene NEGATIVE 05/21/22 05/21/22 06:44 06:44 PT 10.6 INR 0.9 Anion Gap 14 Estim Creat Clear Calc 91.4 Estimated GFR > 60 Random Glucose 70 D Calcium 8.9 Stool Leukocytes, Qual Stl C. cayetanensis PCR Stool Rotavirus A PCR Stl Adenov F 40/41 PCR Stool Astrovirus (PCR) Stool Campylobacter PCR Stool Cryptosporidium PCR Stl Sh Tox Pr E STEC PCR Stool E coli O157 PCR Stl Enterotoxigenic E PCR Stool EPEC (PCR) Stool EAEC (PCR) Stl E. histolytica PCR Stool Giardia Lamblia PCR Stl P. shigelloides PCR Stool Salmonella PCR Stool Sapovirus (PCR) Stl Shigella/EIEC PCR St Y.enterocolitica PCR Stool Vibrio (PCR) Stl Vibrio cholerae PCR Stl Norovirus GI/GII PCR C. difficile Tox B Gene Microbiology Microbiology Results: Microbiology 05/19/22 19:33 Blood Culture - Preliminary Blood - Venous No growth after 24 hours. 05/19/22 19:33 Blood Culture - Preliminary Blood - Venous No growth after 24 hours. Assessment and Plan (1) Pneumocystis jiroveci pneumonia: Status: Acute Plan 31-year-old male with past medical history of HIV with a CD4 cell count of 32 measured this month presents to the hospital with complaints of difficulty swallowing found to have significant oral thrush as well as possible PJP pneumonia Oral thrush with possible herpectic esophagitis Likely secondary to HIV, recent diagnosis Followed by Dr. Blanchard, started on fluconazole Has burning all the way down the esophagus, more likely has esophagitis, will consult GI for EGD IV PPI Start IV acyclovir PJP pneumonia CD4 count 32 Continue Bactrim, atovaquone Continue prednisone 40 mg daily Supplemental oxygen as needed Acute hyperkalemia. Resolved Lokelma Acute COVID-19 infection No hypoxia HIV/AIDS patient was to be started on Dolutegravir-lamivudin but has not began regimen yet Id following DVT prophylaxis: Lovenox Attending Dr. Bartlett Full code Given patient's requirement for further management of oral thrush with EGD and GI evaluation Quality Stroke Does the patient have a stroke diagnosis?: No VTE Prior VTE?: No VTE Risk Level:: Medical - moderate - high VTE Device Contraindication: Treatment Not Indicated VTE Drug Contraindication: N/A - Med Ordered
--- NOTE | 2022-05-21 12:07 | MHC.CLN ---
PT IS SEVERELY MALNOURISHED PT WITH SEVERELY DEPLETED SUBCUTANEOUS FAT AND MUSCLE MASS, PT TRIGGERS FOR 20% WT LOSS X 3ODAYS WITH POOR PO INTAKE R/T ORAL THRUSH DIET RX: NPO-APPROPRIATE WHEN DIET TO ADVANCE, RECOMMEND ADDING ENSURE TID TO PROVIDE 1050KCALS, 60G PROTEIN MONITOR PO INTAKE CLOSELY SEE ALSO FULL CLINICAL NUTRITION ASSESSMENT
--- NOTE | 2022-05-21 14:17 | P.CONAN_ITS ---
HPI - Anesthesia Eval Consult details Narrative: 31 M for EGD HIV with a CD4 cell count of 32 difficulty swallowing , tacycardia , possible herpectic esophagitis, acute COVID-19 infection without hypoxia PMFSH Active Problems Active Problems: All Active Problems (Updated 05/20/22 @ 06:23 by Danny Moon MD) Pneumocystis jiroveci pneumonia (Acute) Oral thrush (Acute) Multifocal pneumonia (Acute) Acute hyperkalemia (Acute) COVID-19 (Acute) AIDS (Acute) Spontaneous pneumothorax (Acute) COPD (chronic obstructive pulmonary disease) (Acute) COVID-19 (Acute) HIV (human immunodeficiency virus infection) (Acute) Abnormal EKG (Acute) Marijuana use (Acute) Past Medical History Medical History AIDS COPD (chronic obstructive pulmonary disease) COVID-19 COVID-19 HIV (human immunodeficiency virus infection) Pericarditis Pneumonia due to COVID-19 virus Spontaneous pneumothorax Spontaneous pneumothorax Tachycardia Tobacco use Family History Family History Mother No active medical problems Father No active medical problems Family history of problems with anesthesia: No Surgical History History of Problems with Anesthesia: No Social History Social History Household Members: Significant Other and Family Caregiver staying overnight: No Housing: Apartment Do you presently have visiting nurse or other home services: No Unable to assess alcohol history related to: Unable to respond Alcohol intake: former Patient Tobacco Use Status: Former Tobacco user Quit Date: apr 18 2022 Tobacco use type: Cigarette Cigarette Packs Per Day: 1 Cigarettes Per Day: 20.0 e-Cigarette/Vaping Use: Former Use Substance Use Type: Marijuana service: No Current occupation: unemployed,did work at [employer] Sexual orientation: MSM Gender identity: Male Meds Allergies Allergy/AdvReac Type Severity Reaction Status Date / Time No Known Allergies Allergy Verified 05/15/22 15:11 Active Medications: Current Medications Acetaminophen (Acetaminophen 325 Mg Tablet) 650 mg PO Q6H PRN PRN Reason: Pain, Mild (Pain Scale 1-3) Atovaquone (Atovaquone 750 Mg/5 Ml Oral.Susp) 1,500 mg PO DAILY [facility] Last Admin: 05/21/22 10:03 Dose: 1,500 mg Docusate Sodium (Docusate Sodium 100 Mg Capsule) 100 mg PO DAILY PRN PRN Reason: Constipation Dolutegravir Sodium (Dolutegravir Sodium 50 Mg Tablet) 50 mg PO DAILY [facility] Last Admin: 05/21/22 07:48 Dose: 50 mg Heparin Sodium (Porcine) (Heparin Sodium,Porcine 5,000 Unit/Ml Vial) 5,000 unit SUBCUT Q12H [facility] Last Admin: 05/20/22 13:26 Dose: 5,000 unit Fluconazole (Diflucan) 200 mg in 100 mls @ 100 mls/hr IV Q24H [facility] Last Infusion: 05/21/22 02:00 Dose: Infused Sodium Chloride (Ns) 1,000 mls @ 100 mls/hr IVCONT .Q10H [facility] Last Admin: 05/21/22 10:00 Dose: 100 mls/hr Acyclovir Sodium 232.5 mg/ (Sodium Chloride) 104.65 mls @ 104.65 mls/hr IV Q8H [facility] Last Infusion: 05/21/22 11:29 Dose: Infused Levofloxacin (Levaquin) 750 mg in 150 mls @ 100 mls/hr IV Q24H [facility] Morphine Sulfate (Morphine Sulfate 2 Mg/Ml Cartridge) 4 mg IVPUSH Q4H PRN; Protocol PRN Reason: Pain, Severe (Pain Scale 7-10) Ondansetron HCl (Ondansetron Hcl 4 Mg/2 Ml Vial) 4 mg IVPUSH Q8H PRN PRN Reason: Nausea and Vomiting Pantoprazole Sodium (Pantoprazole Sodium 40 Mg/10 Ml Vial) 40 mg IVPUSH BID@0630,1630 [facility] Last Admin: 05/21/22 05:04 Dose: 40 mg Pharmacy Consult (Consult Rx Perform Med Rec) 1 each MISCELLANE ONCE PRN PRN Reason: Consult order Prednisone (Prednisone 20 Mg Tablet) 40 mg PO DAILY [facility] Last Admin: 05/21/22 07:48 Dose: 40 mg Sodium Chloride (0.9 % Sodium Chloride Flush 3 Ml Syringe) 3 ml IVFLUSH QSHIFT [facility] Last Admin: 05/21/22 08:20 Dose: Not Given Home Medications Medication Instructions Recorded Confirmed Last Taken Type atovaquone 750 mg/5 mL oral 1,500 mg PO DAILY 05/20/22 05/20/22 Unknown History suspension Exam Exam Date and Time: May 21, 2022 1417 Height,Weight and Vital Signs: Height 5 ft 9 in Weight 46.5 kg Last Vital Signs Temp 99.2 F 05/21/22 11:19 Pulse 112 H 05/21/22 11:19 Resp 20 05/21/22 11:19 BP 124/70 05/21/22 11:19 Pulse Ox 94 05/21/22 11:19 O2 Del Method 05/21/22 11:19 Pertinent Lab Results Pertinent Lab Results: Laboratory Tests 05/19/22 05/19/22 05/19/22 17:36 17:36 17:36 WBC 13.7 H RBC 4.34 L Hgb 12.6 L Hct 38.2 L MCV 88.0 MCH 29.0 MCHC 33.0 RDW 14.0 Plt Count 567 H D MPV 11.3 Immature Gran % (Auto) 0.7 H Neut % (Auto) 93.5 H Lymph % (Auto) 2.9 L [place] % (Auto) 2.8 Eos % (Auto) 0.0 Baso % (Auto) 0.1 Lymph # (Auto) 0.4 L [place] # (Auto) 0.4 Eos # (Auto) 0.0 Baso # (Auto) 0.0 Abs Immat Gran (auto) 0.09 H Absolute Neuts (auto) 12.8 H Absolute Nucleated RBC 0.000 Nucleated RBC % (auto) 0.0 Smear Tech's Comments VERIFIED PT INR Sodium 133 L Potassium 5.7 H Chloride 100 Carbon Dioxide 21 L Anion Gap 18 BUN 25 H Creatinine 1.18 Estim Creat Clear Calc 59.6 Estimated GFR > 60 Random Glucose 171 H Lactic Acid Lactic Acid F/U @ 2Hr Calcium 9.7 D Magnesium 2.3 Total Bilirubin 0.5 Direct Bilirubin 0.2 AST 18 ALT 20 Alkaline Phosphatase 106 Troponin I High Sens < 3.5 B-Natriuretic Peptide Total Protein 8.1 H Albumin 3.0 L Lipase 25 Stool Leukocytes, Qual Stl C. cayetanensis PCR Stool Rotavirus A PCR Stl Adenov F 40/41 PCR Stool Astrovirus (PCR) Stool Campylobacter PCR Stool Cryptosporidium PCR Stl Sh Tox Pr E STEC PCR Stool E coli O157 PCR Stl Enterotoxigenic E PCR Stool EPEC (PCR) Stool EAEC (PCR) Stl E. histolytica PCR Stool Giardia Lamblia PCR Stl P. shigelloides PCR Stool Salmonella PCR Stool Sapovirus (PCR) Stl Shigella/EIEC PCR St Y.enterocolitica PCR Stool Vibrio (PCR) Stl Vibrio cholerae PCR Stl Norovirus GI/GII PCR C. difficile Tox B Gene Influenza Type A (PCR) Influenza Type B (PCR) RSV RNA Qual (PCR) SARS-CoV-2 RNA (RT-PCR) 05/19/22 05/19/22 05/19/22 17:36 19:13 19:33 WBC RBC Hgb Hct MCV MCH MCHC RDW Plt Count MPV Immature Gran % (Auto) Neut % (Auto) Lymph % (Auto) [place] % (Auto) Eos % (Auto) Baso % (Auto) Lymph # (Auto) [place] # (Auto) Eos # (Auto) Baso # (Auto) Abs Immat Gran (auto) Absolute Neuts (auto) Absolute Nucleated RBC Nucleated RBC % (auto) Smear Tech's Comments PT INR Sodium Potassium Chloride Carbon Dioxide Anion Gap BUN Creatinine Estim Creat Clear Calc Estimated GFR Random Glucose Lactic Acid 2.9 H* Lactic Acid F/U @ 2Hr Calcium Magnesium Total Bilirubin Direct Bilirubin AST ALT Alkaline Phosphatase Troponin I High Sens B-Natriuretic Peptide < 10 Total Protein Albumin Lipase Stool Leukocytes, Qual Stl C. cayetanensis PCR Stool Rotavirus A PCR Stl Adenov F 40/41 PCR Stool Astrovirus (PCR) Stool Campylobacter PCR Stool Cryptosporidium PCR Stl Sh Tox Pr E STEC PCR Stool E coli O157 PCR Stl Enterotoxigenic E PCR Stool EPEC (PCR) Stool EAEC (PCR) Stl E. histolytica PCR Stool Giardia Lamblia PCR Stl P. shigelloides PCR Stool Salmonella PCR Stool Sapovirus (PCR) Stl Shigella/EIEC PCR St Y.enterocolitica PCR Stool Vibrio (PCR) Stl Vibrio cholerae PCR Stl Norovirus GI/GII PCR C. difficile Tox B Gene Influenza Type A (PCR) NEGATIVE Influenza Type B (PCR) NEGATIVE RSV RNA Qual (PCR) NEGATIVE SARS-CoV-2 RNA (RT-PCR) POSITIVE A 05/19/22 05/19/22 05/20/22 21:42 22:32 05:24 WBC 10.6 RBC 3.67 L Hgb 10.6 L Hct 32.3 L MCV 88.0 MCH 28.9 MCHC 32.8 RDW 14.1 Plt Count 477 H MPV 11.4 Immature Gran % (Auto) 0.4 Neut % (Auto) 91.4 H Lymph % (Auto) 3.8 L [place] % (Auto) 3.9 Eos % (Auto) 0.4 Baso % (Auto) 0.1 Lymph # (Auto) 0.4 L [place] # (Auto) 0.4 Eos # (Auto) 0.0 Baso # (Auto) 0.0 Abs Immat Gran (auto) 0.04 H Absolute Neuts (auto) 9.7 H Absolute Nucleated RBC 0.000 Nucleated RBC % (auto) 0.0 Smear Tech's Comments VERIFIED PT INR Sodium 132 L Potassium 5.5 H Chloride 103 Carbon Dioxide 20 L Anion Gap 15 BUN 22 H D Creatinine 0.75 Estim Creat Clear Calc 93.8 Estimated GFR > 60 Random Glucose 116 H Lactic Acid Lactic Acid F/U @ 2Hr 1.5 Calcium 8.3 L D Magnesium Total Bilirubin Direct Bilirubin AST ALT Alkaline Phosphatase Troponin I High Sens B-Natriuretic Peptide Total Protein Albumin Lipase Stool Leukocytes, Qual Stl C. cayetanensis PCR Stool Rotavirus A PCR Stl Adenov F 40/41 PCR Stool Astrovirus (PCR) Stool Campylobacter PCR Stool Cryptosporidium PCR Stl Sh Tox Pr E STEC PCR Stool E coli O157 PCR Stl Enterotoxigenic E PCR Stool EPEC (PCR) Stool EAEC (PCR) Stl E. histolytica PCR Stool Giardia Lamblia PCR Stl P. shigelloides PCR Stool Salmonella PCR Stool Sapovirus (PCR) Stl Shigella/EIEC PCR St Y.enterocolitica PCR Stool Vibrio (PCR) Stl Vibrio cholerae PCR Stl Norovirus GI/GII PCR C. difficile Tox B Gene Influenza Type A (PCR) Influenza Type B (PCR) RSV RNA Qual (PCR) SARS-CoV-2 RNA (RT-PCR) 05/20/22 05/20/22 05/20/22 05:24 18:00 18:00 WBC RBC Hgb Hct MCV MCH MCHC RDW Plt Count MPV Immature Gran % (Auto) Neut % (Auto) Lymph % (Auto) [place] % (Auto) Eos % (Auto) Baso % (Auto) Lymph # (Auto) [place] # (Auto) Eos # (Auto) Baso # (Auto) Abs Immat Gran (auto) Absolute Neuts (auto) Absolute Nucleated RBC Nucleated RBC % (auto) Smear Tech's Comments PT INR Sodium 135 Potassium 5.9 H Chloride 104 Carbon Dioxide 24 Anion Gap 13 BUN 21 H Creatinine 0.77 Estim Creat Clear Calc 91.4 Estimated GFR > 60 Random Glucose 84 Lactic Acid Lactic Acid F/U @ 2Hr Calcium 9.2 D Magnesium Total Bilirubin Direct Bilirubin AST ALT Alkaline Phosphatase Troponin I High Sens B-Natriuretic Peptide Total Protein Albumin Lipase Stool Leukocytes, Qual MOD: 3-9/OIF Stl C. cayetanensis PCR Stool Rotavirus A PCR Stl Adenov F 40/ PCR Stool Astrovirus (PCR) Stool Campylobacter PCR Stool Cryptosporidium PCR Stl Sh Tox Pr E STEC PCR Stool E coli O157 PCR Stl Enterotoxigenic E PCR Stool EPEC (PCR) Stool EAEC (PCR) Stl E. histolytica PCR Stool Giardia Lamblia PCR Stl P. shigelloides PCR Stool Salmonella PCR Stool Sapovirus (PCR) Stl Shigella/EIEC PCR St Y.enterocolitica PCR Stool Vibrio (PCR) Stl Vibrio cholerae PCR Stl Norovirus GI/GII PCR C. difficile Tox B Gene NEGATIVE Influenza Type A (PCR) Influenza Type B (PCR) RSV RNA Qual (PCR) SARS-CoV-2 RNA (RT-PCR) 05/20/22 05/21/22 05/21/22 18:00 06:44 06:44 WBC RBC Hgb Hct MCV MCH MCHC RDW Plt Count MPV Immature Gran % (Auto) Neut % (Auto) Lymph % (Auto) [place] % (Auto) Eos % (Auto) Baso % (Auto) Lymph # (Auto) [place] # (Auto) Eos # (Auto) Baso # (Auto) Abs Immat Gran (auto) Absolute Neuts (auto) Absolute Nucleated RBC Nucleated RBC % (auto) Smear Tech's Comments PT 10.6 INR 0.9 Sodium 137 Potassium 4.7 D Chloride 106 Carbon Dioxide 22 Anion Gap 14 BUN 18 H Creatinine 0.77 Estim Creat Clear Calc 91.4 Estimated GFR > 60 Random Glucose 70 D Lactic Acid Lactic Acid F/U @ 2Hr Calcium 8.9 Magnesium Total Bilirubin Direct Bilirubin AST ALT Alkaline Phosphatase Troponin I High Sens B-Natriuretic Peptide Total Protein Albumin Lipase Stool Leukocytes, Qual Stl C. cayetanensis PCR Not Detected Stool Rotavirus A PCR Not Detected Stl Adenov F PCR Not Detected Stool Astrovirus (PCR) Not Detected Stool Campylobacter PCR Detected A Stool Cryptosporidium PCR Not Detected Stl Sh Tox Pr E STEC PCR Not Detected Stool E coli O157 PCR Not applicable Stl Enterotoxigenic E PCR Not Detected Stool EPEC (PCR) Not Detected Stool EAEC (PCR) Not Detected Stl E. histolytica PCR Not Detected Stool Giardia Lamblia PCR Not Detected Stl P. shigelloides PCR Not Detected Stool Salmonella PCR Not Detected Stool Sapovirus (PCR) Not Detected Stl Shigella/EIEC PCR Not Detected St Y.enterocolitica PCR Not Detected Stool Vibrio (PCR) Not Detected Stl Vibrio cholerae PCR Not Detected Stl Norovirus GI/GII PCR Not Detected C. difficile Tox B Gene Influenza Type A (PCR) Influenza Type B (PCR) RSV RNA Qual (PCR) SARS-CoV-2 RNA (RT-PCR) Airway Mallampati Class: IV TM Dist: >3cm Neck ROM: Full Loose/Missing/Broken Teeth: Yes Heart: Tacycardiac Lungs: b/l breath sounds Assessment and Plan Assessment Anesthesia Assessment: Anesthesia Plan Discussed and Chart Reviewed Final Anesthetic Review Family History of Problems with Anesthesia: No History of Problems with Anesthesia: No NPO: Yes ASA Class: IV and Emergency Final Preanesthetic Review: Meds/Allgs Chart Reviewed, Consent Obtained/Reviewed and Anes Risks/Benef Reviewed Patient Risk: High Procedure Risk: Intermediate Anesthetic Plan Anesthetic Plan: MAC: Disposition: Inp. Admit - Standard Bed
--- NOTE | 2022-05-21 14:51 | PM.OP ---
Brief Operative Note Date of Service: 05/21/22 Pre-op diagnosis: odynophagia Post-op diagnosis: same (erosive esophagitis) Procedure: egd Surgeon: Chris Diehl Anesthesia: MAC Was an Family Services Assistant used for this Procedure?: No Estimated blood loss (mL): 2 Pathology: other Condition: stable Disposition: PACU
--- NOTE | 2022-05-21 14:52 | PM.EVENT ---
Event Note Date of Service: 05/21/22 Event Note: EGD note dictated erosive esophagitis with linear and circular ulceration from 28 to 44 cm at EGJ. bx's taken for histopathology and micro culture stomach and duodenum WNL, biopsied also. rec advance diet continue present management. f/u bx results
[2022-05-21] MEDS: levoFLOXacin/D5W 750 MG/150 ML PIGGYBACK 100 MG IV (15:37)
[2022-05-21] MEDS: Morphine Sulfate 2 MG/ML CARTRIDGE 4 MG IVPUSH (21:49)
--- NOTE | 2022-05-22 01:47 | OP_ITS ---
SURGEON: Chris Diehl MD INDICATIONS: Odynophagia. PREOPERATIVE DIAGNOSIS: POSTOPERATIVE DIAGNOSIS: PROCEDURE PERFORMED: ESTIMATED BLOOD LOSS: COMPLICATIONS: ANESTHESIA: Monitored anesthesia care. ASSISTANTS: SPECIMENS: PROCEDURES PERFORMED: Upper endoscopy with biopsy. DESCRIPTION OF PROCEDURE: History and physical performed. The risks and benefits of the procedure were explained to the patient. An informed consent was obtained. The procedure was performed on 05/21/2022. The patient is placed in a left lateral decubitus position. The Olympus video gastroscope was introduced into the esophagus, stomach, and duodenum. Examination was performed. The scope was removed. He tolerated the procedure well and was taken to recovery in stable condition. FINDINGS: Esophagus: There was erosive esophagitis with linear and circumferential ulceration extending from 28 cm to the EG junction at 44 cm. Biopsies were obtained for histopathology and for viral culture. Stomach: The stomach was normal. Antral biopsies were obtained. Duodenum: The bulb and second portion were normal. Biopsies were obtained from the duodenum, because of the patient's weight loss. IMPRESSION: Erosive esophagitis. RECOMMENDATIONS: 1. Follow up the biopsy results. 2. Continue present therapy. MD BLAKE Hoover/ALOL / [id number]
[2022-05-22 03:08] VITALS: BP 105/59; PULSE 97; RESP 17; TEMP 36.4; O2SAT 95
[2022-05-22] MEDS: Pantoprazole Sodium 40 MG/10 ML VIAL IVPUSH ×2 (06:21→15:27)
[2022-05-22] MEDS: Atovaquone 750 MG/5 ML ORAL.SUSP 1500 MG PO (07:34)
[2022-05-22] MEDS: 0.9 % Sodium Chloride Flush 3 ML SYRINGE IVFLUSH ×3 (07:34→23:07)
[2022-05-22] MEDS: Fluconazole in NaCl,Iso-Osm 200 MG/100 ML PIGGYBACK 100 MG IV (07:36)
[2022-05-22] MEDS: predniSONE 20 MG TABLET 40 MG PO (07:36)
[2022-05-22] MEDS: Dolutegravir Sodium 50 MG TABLET PO (07:36)
[2022-05-22 08:00] VITALS: BP 119/60; PULSE 103; RESP 20; TEMP 37.1; O2SAT 95
--- NOTE | 2022-05-22 08:17 | HO.POSTANES ---
Post Anesthesia Evaluation Post Anesthesia Evaluation Vital Signs: Vital Signs Temp Pulse Resp BP Pulse Ox O2 Del Method 05/22/22 03:08 97.6 F 97 17 105/59 L 95 Room Air 05/21/22 23:15 98.7 F 89 20 106/62 95 Room Air Anesthesia: Monitored Mental Status: Awake Pain Control: Satisfactory Nausea/Vomiting: None Hydration: Adequate Anesthesia-Related Issues: No Anes. Related Issues
--- NOTE | 2022-05-22 10:03 | MHC.CLN ---
PT IS SEVERELY MALNOURISHED SEE ALSO CLINICAL NUTRITION ASSESSMENT DATED 05/21/22 DIET RX: REGULAR-APPROPRIATE WILL START ENSURE TID TO PROVIDE 1050KCALS, 60G PROTEIN MONITOR PO INTAKE CLOSELY
[2022-05-22 11:25] VITALS: BP 127/77; PULSE 114; RESP 20; TEMP 36.9; O2SAT 93
[2022-05-22 12:11] LABS: Absolute CD3 Count 185 cells/uL (840-3060); Absolute CD4 Count <20 cells/uL (490-1740); Absolute CD8 Count 161 cells/uL (180-1170); Absolute Lymphocytes 232 cells/uL (850-3900); CD4 CD8 Ratio 0.09 (0.86-5.00); Percent CD3 Cells 80 % (57-85); Percent CD4 Cells 6 % (30-61); Percent CD8 Cells 70 % (12-42)
--- NOTE | 2022-05-22 12:48 | P.CDIC_ITS ---
CDI Concurrent Query Documentation Clarification: PHYSICIAN'S DOCUMENTATION REQUEST Date of Query: 05/22/22 1245 Patient Name: Arvin Aguilar Admit Date: 05/20/22 Dear Doctor, A review of the medical record indicates additional documentation may be needed. Please review below and update the documentation accordingly. Clinical Indicators: Height: [] 5'9 Weight: [] 46.5 kg BMI: [] 15.1 Other Clinical Notes Supporting Significance of the BMI: Risk Factors/Clinical Indicators/Treatments Per Nutrition note 05/21/22: Patient is severely malnourished Patient with severely depleted subcutaneous fat and muscle mass, patient triggers for 20% weight loss x 30 days with poor po intake related to oral thrush If possible, please provide an associated diagnosis related to the abnormal BMI, such as: For a BMI <= 19: * Underweight * Weight loss * Cachexia * Anorexia * Malnutrition (Mild, Moderate, Severe) Or: * BMI is not significant * Other (please specify) * Unable to determine Use of terms such as suspected, likely, concern for, or probable (associated with a specific diagnosis that is being evaluated, monitored, or treated as if it exists) are acceptable and can be coded in the inpatient setting, when documented at the time of discharge. Thank you, Marie Ann RN Extension: [phone] Please use your independent medical judgment in providing your response. THIS QUERY IS PART OF THE PERMANENT MEDICAL RECORD Provider Response: Other Other Diagnosis: UNDERWEIGHT
[2022-05-22] MEDS: levoFLOXacin/D5W 750 MG/150 ML PIGGYBACK 100 MG IV (13:06)
[2022-05-22 13:21] LABS: HIV RNA PCR Qn Copies 332000 copies/mL (NOT DETECTED); HIV RNA PCR Qn Log Copies 5.52 (NOT DETECTED)
--- NOTE | 2022-05-22 13:28 | P.PNID_ITS ---
Subjective Subjective Date of Service: 05/22/22 Critical Care Time (minutes): 20 Comment: I am talking to Eugenie from [facility] with patient. He feels well and denies syphilis lesion and refuses exam. He wants to leave and go to [facility] for further care. He has Dovato (dolutegravir and lamivudine) waiting for him at pharmacy. Objective Data Labs CBC & Chem 7: 05/20/22 05:24 05/21/22 06:44 Labs: Laboratory Results - last 24 hr 05/19/22 05/19/22 19:13 19:13 Total Lymphocytes 232 L % CD3 Cells 80 Absolute CD3 Count 185 L % CD4 Cells 6 L Absolute CD4 Count <20 L CD4/CD8 Ratio 0.09 L % CD8 Cells 70 H Absolute CD8 Count 161 L HIV-1 RNA copies/mL 229119 H HIV-1 RNA logcopies/mL 5.52 H Microbiology Microbiology Results: Microbiology 05/19/22 19:33 Blood - Venous Blood Culture - Preliminary No growth after 48 hours. 05/19/22 19:33 Blood - Venous Blood Culture - Preliminary No growth after 48 hours. Physical Exam Vital Signs: Vital Signs: Last Vital Signs Temp 98.4 F 05/22/22 11:25 Pulse 114 H 05/22/22 11:25 Resp 20 05/22/22 11:25 BP 127/77 05/22/22 11:25 Pulse Ox 93 05/22/22 11:25 O2 Del Method 05/22/22 11:25 O2 Flow Rate 6 05/21/22 14:55 BMI result Body Mass Index 15.1 Const: General: cooperative HEENT: Head: Yes other (oropharynx clear) Resp: Effort & Inspection: normal respiratory effort Cardio: Rate: regular rate Rhythm: regular rhythm GI: Palpation (GI): Soft to palpation and nontender Assessment and Plan Assessment and plan (1) Pneumocystis jiroveci pneumonia: Status: Acute (2) Oral thrush: Status: Acute (3) Multifocal pneumonia: Problem details: He feels better. Status: Acute (4) Syphilis (acquired): Status: Acute (5) AIDS: Problem details: He has new onset syphilis at 1:64 He has campylobacter stool He has AIDS and hasnt picked up HAART yet He has esophagitis and biopsy pending (endo done) Status: Acute Assessment and Plan: Continue Mepron PJP prevention and treatment. Azithromycin now as more resistance to campylobacter here. Diflucan and acyclovir for now for esophagitis and await final Get HIV medication from home and dont give isolated med (dolutegravir) by itself as can develop selective resistance pressure. See [facility] outpatient (6) Campylobacter diarrhea: Status: Acute Time Spent With Patient Time: Total time spent is greater than 50% in coordination of care (as documented) at patient's floor/unit and/or counseling patient:
--- NOTE | 2022-05-22 13:38 | PM.EVENT ---
Event Note Date of Service: 05/22/22 Event Note: also weekly PCN 2.4 mu IM weekly x 3,first dose today
[2022-05-22 15:15] VITALS: BP 100/59; PULSE 98; RESP 18; TEMP 36.8; O2SAT 96
[2022-05-22] MEDS: Penicillin G Benzathine 2,400,000 UNIT/4 ML SYRINGE 2400000 UNIT IM (15:27)
[2022-05-22] MEDS: Azithromycin 250 MG TABLET PO (15:27)
--- NOTE | 2022-05-22 16:27 | P.PNIM_ITS ---
Subjective Subjective Date of Service: 05/22/22 Interval History: Followup PJP PNA, esophagitis Throat feeling better denies nausea, vomiting, diarrhea Review of Systems still has pain with swallowing denies sob or cough Physical Exam Vital Signs: Vital Signs: Last Vital Signs Temp 98.3 F 05/22/22 15:15 Pulse 98 05/22/22 15:15 Resp 18 05/22/22 15:15 BP 100/59 L 05/22/22 15:15 Pulse Ox 96 05/22/22 15:15 O2 Del Method 05/22/22 15:15 O2 Flow Rate 6 05/21/22 14:55 BMI result Body Mass Index 15.1 Appearing in no acute distress, thin ?lung sounds are clear to auscultation ?heart regular rate rhythm, clear? S1, S2 ?positive bowel sounds, abdomen is soft, nontender ?neuro patient is alert x3, no focal deficits Objective Data Active Medications Acetaminophen (Acetaminophen 325 Mg Tablet) 650 mg PO Q6H PRN PRN Reason: Pain, Mild (Pain Scale 1-3) Atovaquone (Atovaquone 750 Mg/5 Ml Oral.Susp) 1,500 mg PO DAILY [facility] Last Admin: 05/22/22 07:34 Dose: 1,500 mg Documented By: ALEX Azithromycin (Azithromycin 250 Mg Tablet) 250 mg PO Q24H [facility] Last Admin: 05/22/22 15:27 Dose: 250 mg Documented By: ALEX Docusate Sodium (Docusate Sodium 100 Mg Capsule) 100 mg PO DAILY PRN PRN Reason: Constipation Heparin Sodium (Porcine) (Heparin Sodium,Porcine 5,000 Unit/Ml Vial) 5,000 unit SUBCUT Q12H [facility] Last Admin: 05/20/22 13:26 Dose: 5,000 unit Documented By: SHARATH Acyclovir Sodium 232.5 mg/ (Sodium Chloride) 104.65 mls @ 104.65 mls/hr IV Q8H [facility] Last Admin: 05/22/22 15:28 Dose: 104.65 mls/hr Documented By: ALEX Fluconazole (Diflucan) 200 mg in 100 mls @ 100 mls/hr IV Q24H [facility] Last Infusion: 05/22/22 10:27 Dose: 0 mls/hr Documented By: ALEX Lidocaine/Diphenhydr/Alum/Mg/Simeth (Mag&Al/Sim/Diphenhyd/Lidocaine 10 Ml Oral.Susp) 10 ml PO Q6H PRN; Protocol PRN Reason: dysphagia Morphine Sulfate (Morphine Sulfate 2 Mg/Ml Cartridge) 4 mg IVPUSH Q4H PRN; Protocol PRN Reason: Pain, Severe (Pain Scale 7-10) Last Admin: 05/21/22 21:49 Dose: 4 mg Documented By: MARY Ondansetron HCl (Ondansetron Hcl 4 Mg/2 Ml Vial) 4 mg IVPUSH Q8H PRN PRN Reason: Nausea and Vomiting Pantoprazole Sodium (Pantoprazole Sodium 40 Mg/10 Ml Vial) 40 mg IVPUSH B [id number] [facility] Last Admin: 05/22/22 15:27 Dose: 40 mg Documented By: ALEX Pharmacy Consult (Consult Rx Perform Med Rec) 1 each MISCELLANE ONCE PRN PRN Reason: Consult order Prednisone (Prednisone 20 Mg Tablet) 40 mg PO DAILY [facility] Last Admin: 05/22/22 07:36 Dose: 40 mg Documented By: ALEX Sodium Chloride (0.9 % Sodium Chloride Flush 3 Ml Syringe) 3 ml IVFLUSH QSHIFT [facility] Last Admin: 05/22/22 07:34 Dose: 3 ml Documented By: ALEX Labs CBC & Chem 7: 05/20/22 05:24 05/21/22 06:44 Labs: Laboratory Results - last 24 hr 05/19/22 05/19/22 19:13 19:13 Total Lymphocytes 232 L % CD3 Cells 80 Absolute CD3 Count 185 L % CD4 Cells 6 L Absolute CD4 Count <20 L CD4/CD8 Ratio 0.09 L % CD8 Cells 70 H Absolute CD8 Count 161 L HIV-1 RNA copies/mL 390674 H HIV-1 RNA logcopies/mL 5.52 H Microbiology Microbiology Results: Microbiology 05/19/22 19:33 Blood Culture - Preliminary Blood - Venous No growth after 48 hours. 05/19/22 19:33 Blood Culture - Preliminary Blood - Venous No growth after 48 hours. Assessment and Plan (1) Campylobacter diarrhea: Status: Acute (2) Syphilis (acquired): Status: Acute (3) Pneumocystis jiroveci pneumonia: Status: Acute (4) Oral thrush: Status: Acute (5) Odynophagia: Status: Acute Plan 31-year-old male with past medical history of HIV with a CD4 cell count of 32 measured this month presents to the hospital with complaints of difficulty swallowing found to have significant oral thrush as well as possible PJP pneumonia Oral thrush with possible herpectic esophagitis Likely secondary to HIV, recent diagnosis Followed by Dr. Blanchard, started on fluconazole Has burning all the way down the esophagus, more likely has esophagitis, will consult GI for EGD IV PPI, IV acyclovir,fluconazole,also on levaquin for campylobacter, Gi pathology pending Added Penicillin for syphllis ( ID will add further recomendations) please will benefit from Id and GI followup before discharge-d/w Id they will add recomendation todat PJP pneumonia CD4 count 32 Continue Bactrim, atovaquone Continue prednisone 40 mg daily Supplemental oxygen as needed Acute hyperkalemia. Resolved Lokelma Acute COVID-19 infection No hypoxia HIV/AIDS patient was to be started on Dolutegravir-lamivudin but has not began regimen yet Id following DVT prophylaxis: Lovenox Attending Dr. Bartlett Full code inpatient need: odynophagia -Given patient's requirement for further management of oral thrush with EGD -onIV PPI, IV acyclovir,fluconazole,also on levaquin for campylobacter, Gi pathology pending needs Id and Gi follow up before discharge. Quality Stroke Does the patient have a stroke diagnosis?: No VTE Prior VTE?: No VTE Risk Level:: Medical - moderate - high VTE Device Contraindication: Treatment Not Indicated VTE Drug Contraindication: N/A - Med Ordered
[2022-05-22] MEDS: Mag&Al/Sim/Diphenhyd/Lidocaine 10 ML ORAL.SUSP PO ×2 (17:22→23:14)
[2022-05-22 19:07] VITALS: BP 117/68; PULSE 98; RESP 18; TEMP 36.4; O2SAT 98
[2022-05-23] VITALS: BP 119/60; PULSE 69; RESP 20; TEMP 36.4; O2SAT 98
[2022-05-23 03:57] VITALS: BP 121/75; PULSE 100; RESP 20; TEMP 36.4; O2SAT 98
[2022-05-23] MEDS: Pantoprazole Sodium 40 MG/10 ML VIAL IVPUSH (05:46)
[2022-05-23 08:00] VITALS: BP 116/64; PULSE 110; RESP 20; TEMP 36.4; O2SAT 97
[2022-05-23] MEDS: predniSONE 20 MG TABLET 40 MG PO (08:08)
[2022-05-23] MEDS: Atovaquone 750 MG/5 ML ORAL.SUSP 1500 MG PO (08:08)
[2022-05-23] MEDS: Mag&Al/Sim/Diphenhyd/Lidocaine 10 ML ORAL.SUSP PO (08:22)
[2022-05-23] MEDS: 0.9 % Sodium Chloride Flush 3 ML SYRINGE IVFLUSH (08:23)
--- NOTE | 2022-05-23 09:46 | PM.DS ---
DS: Providers Provider Date of Service: 05/23/22 Date of admission: 05/20/22 00:47 Primary care physician: Unknown Physician Consults: 05/20/22 00:38 Consult to Gastroenterology Routine Consulting Provider: Neri Barba Reason for consultation: hiv pt, esophagitis, failed fluconazole Has provider been notified: No 05/20/22 00:43 Consult to Infectious Diseases Routine Consulting Provider: Shantel Blanchard Reason for consultation: worsening thrush, dysphagia Has provider been notified: No Attending physician on discharge: [facility] Discharging clinician: Dilcia Laguerre DS: Diagnosis Discharge Diagnosis (1) Campylobacter diarrhea: Status: Acute (2) Syphilis (acquired): Status: Acute (3) Pneumocystis jiroveci pneumonia: Status: Acute (4) Oral thrush: Status: Acute (5) Odynophagia: Status: Acute DS: Summary Hospital Course Hospital Course: HP as per admiting provider 31-year-old male with past medical history of HIV, 8, COPD, history of pericarditis, presents to the hospital with complaints of difficulty swallowing.? Patient reports that he has a significant pain on swallowing solids and liquids, hot/warm and cold food/liquids.? Patient reports that he was given medication by the infectious disease doctor for this but has not improved.? He also reports that he has difficulty swallowing he is Bactrim.?He reports a cough, no shortness of breath, no fever or chills, no abdominal pain nausea or vomiting, he had 1 episode of diarrhea in the ED, no constipation, no urinary symptoms and no lower extremity edema.Of note patient was seen by infectious disease on 05/15, at that time patient felt to have AIDS defining disease including CD4 count of 32, he also has thrush both aids defining conditions, patient was switched from TMP SMX to Mepron for PJP pneumonia, as he had difficulty swallowing, patient was also given fluconazole for oral thrush.? And he was also started on anti-retroviral therapy on that day but he has not started it reports that he is waiting for his medication to arrive next day. On arrival to the ED patient has a temp of 96.7 degrees, heart rate of 137 which is sinus, blood pressure stable Labs are significant for WBC count of 13.7, hemoglobin 12.6, medical of 30.2, sodium of 133, potassium of 5.7, lactic acid of 2.9 improved after IV fluids, COVID-[address] angiogram shows no evidence of central or segmental pulmonary PE, has increased in extent as ground-glass airspace opacities throughout both lungs with mild patchy consolidative opacities in the lower lobes . Oral thrush with possible herpectic esophagitis vs syphilis secondary to HIV, recent diagnosis, had burning other way down his esophagus Followed by Dr. Blanchard, started on fluconazole for oral thrush EGD showed erosive esophagitis with linear and circumferential ulcerations that were biopsied with results pending Patient treated with IV ppi, IV acyclovir, fluconazole, Levaquin, Mepron, prednisone IV PPI, IV acyclovir,fluconazole,also on levaquin for campylobacter, Gi pathology pending Added Penicillin for syphllis intramuscularly weekly x3, 1st dose 05/22/2022 plans for patient to follow-up with [facility] in [place] for HIV care PJP pneumonia CD4 count 32 Continue Bactrim, atovaquone total 21 day therapy Continue prednisone 40 mg daily, taper Supplemental oxygen as needed Campylobacter diarrhea Initially started on Levaquin, then changed to azithromycin, complete 2 more days outpatient Acute hyperkalemia. Resolved Lokelma Acute COVID-19 infection No hypoxia, asymptomatic HIV/AIDS patient was to be started on Dolutegravir-lamivudin but has not began regimen yet Id following Time Spent with Patient Time attestation: Total time spent providing and/or coordinating discharge services: Discharge coordination time: Greater than 30 minutes Quality: Safe Use of Opioids Does Pt have an Active Cancer Diagnosis on the Problem List?: No Quality: Stroke Does the patient have a stroke diagnosis?: No Physical Exam Vital Signs: Vital Signs: Last Vital Signs Temp 97.6 F 05/23/22 08:00 Pulse 110 H 05/23/22 08:00 Resp 20 05/23/22 08:00 BP 116/64 05/23/22 08:00 Pulse Ox 97 05/23/22 08:00 O2 Del Method 05/23/22 08:00 O2 Flow Rate 6 05/21/22 14:55 BMI result Body Mass Index 15.1 Appearing in no acute distress head is normocephalic atraumatic eyes pupils are PERRLA sclera is anicteric mouth throat mucous membranes are intact and moist neck is supple no lymphadenopathy, no JVD noted lung sounds are clear to auscultation heart regular rate rhythm, clear S1, S2 positive bowel sounds, abdomen is soft, nontender neuro patient is alert x3, no focal deficits DS: Data Data Completed and Pending Completed studies during hospitalization [Text1]: Procedures Drainage of Right Pleural Cavity with Drainage Device, Percutaneous Approach (04/18/22) Pending studies at discharge: Pending at discharge 05/21/22 14:33 Surgical [PTH] Routine Labs on day of discharge: Laboratory Results - last 24 hr 05/19/22 05/19/22 19:13 19:13 Total Lymphocytes 232 L % CD3 Cells 80 Absolute CD3 Count 185 L % CD4 Cells 6 L Absolute CD4 Count <20 L CD4/CD8 Ratio 0.09 L % CD8 Cells 70 H Absolute CD8 Count 161 L HIV-1 RNA copies/mL [id number] H HIV-1 RNA logcopies/mL 5.52 H Preliminary micro results at discharge 05/19/22 19:33 Blood Culture - Preliminary Blood - Venous No growth after 48 hours. 05/19/22 19:33 Blood Culture - Preliminary Blood - Venous No growth after 48 hours. Discharge Plan Discharge Anticipated Discharge Date/Time: 05/23/22 09:19 Patient Disposition: Home, Self-Care Discharge Diagnosis: Oral thrush with likely herpetic esophagitis verses syphilis PJP pneumonia Acute hyperkalemia Acute COVID 19 infection, asymptomatic Referrals: Shantel Blanchard MD [Physician] - 1 Week Discharge Medications: New prednisone 20 mg Tablet See Taper PO DAILY Qty: 21 0RF Taper: Prednisone 40 mg daily for 5 Days and 0 Hour 20 mg daily for 11 Days and 0 Hour acyclovir 400 mg tablet 400 mg PO 5XD Qty: 90 0RF omeprazole 40 mg capsule,delayed release(DR/EC) 40 mg PO DAILY Qty: 30 0RF azithromycin 500 mg tablet 500 mg PO Q24H Qty: 2 0RF Continued atovaquone 750 mg/5 mL Suspension 1,500 mg PO DAILY Rx Instructions: must administer with food, preferably a high-fat meal sulfamethoxazole-trimethoprim [Bactrim DS] 800-160 mg tablet 2 tab PO BID 21 Days Qty: 84 0RF fluconazole [Diflucan] 200 mg tablet 200 mg PO DAILY 14 Days Qty: 14 0RF Dovato 50-300 mg tablet 1 tab PO DAILY 30 Days Qty: 30 0RF Discontinued prednisone 10 mg tablet 20 mg PO DAILY 7 Days Qty: 14 0RF Discharge Orders: Discharge Order (Routine); Ordered 05/23/22 Ordered By: Dilcia Laguerre Diet: Advance to usual diet Activity on Discharge: As tolerated Stand Alone Forms: Patient Portal Discharge page Care Plan Goals: COVID-19 your diagnosed on 05/19/2022. The recommendation is for total 5 days of quarantine therefore you have 1 day left To help protect yourself and others from COVID-19: Get vaccinated and stay up to date on your COVID-19 vaccines. Everyone ages 2 years and older should properly wear a well-fitting mask indoors in public in areas where the COVID-19 Community Level is high, regardless of vaccination status. Avoid poorly ventilated spaces and crowds. Test to prevent spread to others. Wash your hands often. If soap and water are not readily available, use a hand electric motor repairing supervisor that contains at least 60% alcohol. Cover coughs and sneezes. Clean high touch surfaces regularly or as needed and after you have visitors in your home. If someone is sick or has tested positive for COVID-19, disinfect frequently touched surfaces. Monitor your health daily. Self care: If you have possible or confirmed COVID-19: Stay home except to get medical care. Monitor your symptoms. Get tested as soon as possible after your symptoms start. Get rest and stay hydrated. Take flex-uue-zlifzci medicines, such as acetaminophen, to help you feel better. Call ahead before visiting your doctor. If you are sick, wear a well-fitting mask. You have been started on treatment for Pneumocystis pneumonia as well as herpetic esophagitis versus syphilis, treatment includes: Total 21 day treatment, inpatient medications started on 05/20/2022 Bactrim Prednisone Mepron Acyclovir Intramuscular penicillin weekly x3, last dose 05/22/2022 Diflucan for oral thrush Azithromycin for Campylobacter diarrhea Health Concerns: Oral thrush with likely herpetic esophagitis verses syphilis PJP pneumonia Acute hyperkalemia Acute COVID 19 infection, asymptomatic Plan of Treatment: Follow-up with Dr. Jessica Blanchard or whichever clinic will be managing your HIV Take all medications as prescribed Assessment: see discharge summary
--- NOTE | 2022-05-23 09:56 | MHC.CM.PN ---
Patient has been medically cleared for dc to home today, self care.
[2022-05-23] MEDS: Fluconazole in NaCl,Iso-Osm 200 MG/100 ML PIGGYBACK 100 MG IV (11:01)
== END 2022-05-23 13:14 | disposition home or self-care (01) | DRG 892 ==
LOC: HO.ED 05-20 01:09 → HO.EDOVER 05-20 01:37 → HO.IMC 05-20 14:19
PROVIDERS: Internal Medicine; Internal Medicine Gastroenterology; Physician Assistant; Admitting Provider Internal Medicine; Emergency Provider Internal Medicine; Visit Provider Nurse Practitioner Acute Care
PROC: 0DJ08ZZ Inspection of Upper Intestinal Tract, Via Natural or Artificial Opening Endoscopic (ICD-10-PCS; CPT 43235; principal; 2022-05-21 13:00)
DX: B20 Human immunodeficiency virus [HIV] disease (principal); B59 Pneumocystosis; U07.1 COVID-19; A04.5 Campylobacter enteritis; J44.0 Chronic obstructive pulmonary disease with (acute) lower respiratory infection; B37.0 Candidal stomatitis; K22.10 Ulcer of esophagus without bleeding; R63.6 Underweight; Z68.1 Body mass index [BMI] 19.9 or less, adult; E87.5 Hyperkalemia; Z87.891 Personal history of nicotine dependence; Z79.899 Other long term (current) drug therapy
CPT/HCPCS: 0241U; 36415; 71045; 71275; 74177; 80048; 80076; 83605; 83690; 83735; 83880; 84484; 85025; 85610; 86359; 86360; 87040; 87252; 87493; 87507; 87536; 88305; 88312; 88341; 88342; 89055; 93005; 99285; J0133; J0561; J0692; J1450; J1956; J2250; J2270; Q9967

== ENCOUNTER → 2022-07-08 15:49 | Outpatient (BNVA) | payer OTHER, SELFPAY | PROVIDERS: PCP Internal Medicine; Visit Provider Internal Medicine | DX: Z13.89 Encounter for screening for other disorder (principal) ==

== ENCOUNTER 2023-03-18 19:04 | Emergency (ER) | payer OTHER, SELFPAY ==
--- NOTE | ~2023-03-18 | CT_ITS ---
EXAMINATION: CT ABDOMEN AND PELVIS WITHOUT CONTRAST CLINICAL INFORMATION: Left-sided flank pain COMPARISON: CT abdomen and pelvis 05/19/2022 TECHNIQUE: Multidetector volumetric imaging was performed from the superior aspect of the liver through the pubic symphysis. Sagittal and coronal reformatted images were obtained on the technologist's workstation. This CT examination was performed using dose optimization techniques as appropriate, variously including the following: *Automated exposure control *Adjustment of mA and/or kV according to patient size (this includes techniques or standardized protocols for targeted exams where dose is matched to indication/reason for exam; i.e. extremities or head) *Use of iterative reconstruction technique DLP: 630 mGy-cm FINDINGS: LUNG BASES: The visualized lung bases are unremarkable. There is bibasilar atelectasis. LIVER, GALLBLADDER, AND BILIARY TREE: The liver is normal in size, shape, and attenuation. No focal hepatic lesion or biliary ductal dilatation is present. The gallbladder is markedly contracted but otherwise unremarkable with no evidence of radiopaque gallstones, gallbladder wall thickening, or obvious pericholecystic inflammatory changes. PANCREAS: Unremarkable. SPLEEN: Unremarkable. ADRENAL GLANDS: Unremarkable. KIDNEYS AND URETERS: The kidneys are normal in size, shape, and attenuation. No hydronephrosis, hydroureter, or calculi seen. No perinephric stranding. BLADDER: Unremarkable. GASTROINTESTINAL TRACT: The small and large bowel are unremarkable. The appendix is unremarkable. ABDOMINAL WALL: There is a tiny periumbilical hernia seen containing only fat. Since the prior study from 05/19/2022, the patient has gained considerable weight with a significant increase in abdominal wall fat as well as retroperitoneal and mesenteric fat LYMPH NODES: Cluster of small nodes is seen in the cecal mesentery the largest measuring about 0.7 cm in short axis dimension. No retroperitoneal lymphadenopathy VASCULAR: Unremarkable. PELVIC VISCERA: The prostate and seminal vesicles are unremarkable. OSSEOUS STRUCTURES: Unremarkable. CT/CT abdomen pelvis wo IV con IMPRESSION: 1. A cause for the patient's left-sided flank pain has not been found. 2. Incidental note made of a tiny periumbilical hernia containing only fat and a cluster of small nodes in the cecal mesentery. 3. Since the prior study from 05/19/2022, the patient has gained weight a significant increase in abdominal wall, retroperitoneal and mesenteric fat. Fleischner guidelines were followed.
--- NOTE | 2023-03-18 19:18 | ED_ITS ---
HPI - General Adult General Chief complaint: Abdominal Pain Stated complaint: Stomach pain Time Seen by Provider: 03/19/23 00:41 Source: patient Mode of arrival: ambulatory Limitations: no limitations History of Present Illness HPI narrative: Patient's history of HIV been having diffuse abdominal pain cramping for last 1 week with diarrhea and nausea and vomiting no fever no chills no blood in the stool no recent travel patient's CT scan done prior to my evaluation which was normal labs are stable Related Data Home Medications Medication Instructions Recorded Confirmed atovaquone 750 mg/5 mL oral 1,500 mg PO DAILY 05/20/22 05/20/22 suspension bictegravir 50 mg-emtricitabine 1 tab PO DAILY 07/08/22 200 mg-tenofovir alafenam 25 mg tablet (Biktarvy) fluconazole 100 mg tablet 100 mg PO DAILY 07/08/22 hydroxyzine HCl 25 mg tablet 25 mg PO QID PRN itch 07/08/22 triamcinolone acetonide 0.1 % appl topical TID itch 07/08/22 topical cream Previous Rx's Medication Instructions Recorded fluconazole 200 mg tablet 200 mg PO DAILY 14 days #14 tabs 05/15/22 (Diflucan) sulfamethoxazole 800 2 tab PO BID 21 days #84 tabs 05/15/22 mg-trimethoprim 160 mg tablet (Bactrim DS) dolutegravir 50 mg-lamivudine 300 1 tab PO DAILY 30 days #30 tabs 05/17/22 mg tablet (Dovato) acyclovir 400 mg tablet 400 mg PO 5XD #90 tabs 05/23/22 omeprazole 40 mg capsule,delayed 40 mg PO DAILY #30 caps 05/23/22 release loperamide 2 mg capsule (Imodium 2 mg PO Q6H PRN loose stool #10 03/19/23 A-D) caps ondansetron 4 mg disintegrating 4 mg PO Q6-8H PRN nausea and 03/19/23 tablet vomiting #7 tabs Allergies Allergy/AdvReac Type Severity Reaction Status Date / Time No Known Allergies Allergy Verified 07/08/22 16:34 Review of Systems 2 Review of Systems: Yes all other systems are reviewed and are negative PMFSH Past Medical History Medical History Campylobacter diarrhea Syphilis (acquired) AIDS Spontaneous pneumothorax COPD (chronic obstructive pulmonary disease) COVID-19 HIV (human immunodeficiency virus infection) Pericarditis Tachycardia Tobacco use Pneumonia due to COVID-19 virus COVID-19 Spontaneous pneumothorax Family History Family History Mother No active medical problems Father No active medical problems Social History Social History Household Members: Significant Other and Family Housing: Apartment Do you presently have visiting nurse or other home services: No Unable to assess alcohol history related to: Unable to respond Alcohol intake: former Patient Tobacco Use Status: Former Tobacco user Quit Date: apr 18 2022 Tobacco use type: Cigarette Cigarette Packs Per Day: 1 Cigarettes Per Day: 20.0 Smoked in Last 30 Days: No e-Cigarette/Vaping Use: Former Use Substance Use Type: Marijuana Substance Use Frequency: Daily Advance Directives: No Advance Directives Information Provided: No service: No Current occupation: unemployed,did work at [employer] Sexual orientation: MSM Gender identity: Male Physical Exam ED Vital Signs: Vital Signs - 24 hr 03/18/23 19:19 03/19/23 00:43 Temperature 98.2 F 97.9 F Pulse Rate 70 72 Respiratory Rate 18 17 Blood Pressure 134/83 124/70 Pulse Oximetry 98 95 Oxygen Delivery Method Room Air Room Air BMI result Body Mass Index 31.0 Appearance: Alert. Oriented X3. No acute distress. Eyes: No pallor it ENT: Pharynx normal. Oral Mucosa moist Neck: Normal inspection. Neck supple. CVS: Normal heart rate and rhythm. Pulses normal. Respiratory: No respiratory distress. Equal air entry bilateral, no wheezing/rales/rhonchi Abdomen: Soft mild diffuse tenderness Bowel sounds are present, no mass palpable, no CVA tenderness Skin: Skin warm and dry. Normal skin color. Normal skin turgor. Extremities: No lower extremity edema. No calf tenderness Neuro: Oriented X 3. No motor deficit. Course Course Course Narrative: This is an RME: Additional HPI, ROS, PE not included below will be deferred to primary provider. This is a [id number]-[id number]-male, HIV+ with undetectable viral loads last checked 1 week ago, with a complaint of left flank pain, nausea, vomiting x 4 days. Endorsing some diarrhea. No fevers. No hx of kidney stones. No urinary symptoms. Plan: Labs, CT, UA Medications Administered Discontinued Medications Generic Name Dose Route Start Last Admin Trade Name Freq PRN Reason Stop Dose Admin Dicyclomine HCl 20 mg 03/19/23 00:56 03/19/23 01:01 Dicyclomine Hcl 10 Mg Capsule PO 03/19/23 00:57 20 mg ONCE ONE Administration Potassium Bicarbonate 25 meq 03/19/23 00:56 03/19/23 01:01 Potassium Bicarbonate/Cit Ac 25 Meq Tablet.Eff PO 03/19/23 00:57 25 meq ONCE ONE Administration Medical Decision Making Medical Decision Making MDM Narrative: Patient with mild gastroenteritis will discharge patient home [facility] and [place] Differential Diagnosis Differential Diagnoses: The differential diagnosis associated with the presentation includes Colitis/gastroenteritis/viral Lab Data [facility] Lab Attestation statement: I reviewed the patient's lab results. 03/18/23 20:02 03/18/23 20:02 Labs: Lab Results 03/18/23 03/18/23 Range/Units 20:02 21:41 WBC 8.4 (4.8-10.8) X10*3/uL RBC 4.83 D (4.60-5.80) X10*6/uL Hgb 14.4 D (14.0-18.0) g/dl Hct 41.7 L D (42.0-52.0) % MCV 86.3 (80.0-98.0) fL MCH 29.8 (27.0-33.0) pg MCHC 34.5 (31.0-36.0) g/dl RDW 11.9 (11.0-16.0) % Plt Count 278 D (160-400) X10*3/uL MPV 10.2 (9.4-12.4) fL Immature Gran % (Auto) 0.2 (0.0-0.4) % Neut % (Auto) 63.8 (45-73) % Lymph % (Auto) 22.3 (20-40) % [place] % (Auto) 11.8 H (2-11) % Eos % (Auto) 1.5 (0-4) % Baso % (Auto) 0.4 (0-2) % Lymph # (Auto) 1.9 (1.2-4.9) X10*3/uL [place] # (Auto) 1.0 (0.1-1.2) X10*3/uL Eos # (Auto) 0.1 (0.0-0.4) X10*3/uL Baso # (Auto) 0.0 (0.0-0.2) X10*3/uL Abs Immat Gran (auto) 0.02 (0.00-0.03) X10*3/uL Absolute Neuts (auto) 5.4 (2.0-8.3) x10*3/uL Absolute Nucleated RBC 0.000 (0.0-0.012) X10*3/uL Nucleated RBC % (auto) 0.0 (0.0-0.2) /100WBC Sodium 140 (135-145) mmol/L Potassium 3.2 L D (3.3-5.1) mmol/L Chloride 108 (96-108) mmol/L Carbon Dioxide 23 (22-29) mmol/L Anion Gap 12 (12-20) BUN 9 (9-16) mg/dL Creatinine 0.96 (0.5-1.4) mg/dL Estim Creat Clear Calc 129.6 Estimated GFR > 60 Random Glucose 113 (60-115) mg/dL Calcium 9.3 (8.4-10.2) mg/dL Magnesium 2.0 (1.6-2.6) mg/dL Total Bilirubin 0.3 (0.0-1.0) mg/dL Direct Bilirubin 0.1 (0.0-0.5) mg/dL AST 14 (5-37) U/L ALT 13 (0-40) U/L Alkaline Phosphatase 117 (39-117) U/L Total Protein 8.2 H (6.5-8.0) g/dL Albumin 4.1 (3.5-5.0) g/dL Lipase 30 (8-78) U/L Urine Color Yellow Urine Appearance Clear Urine pH 5.5 (5.0-9.0) Ur Specific [place] >= 1.030 H (1.005-1.025) Urine Protein 30 (1+) H (Neg-Trace) mg/dL Urine Glucose (UA) Negative (Negative) mg/dL Urine Ketones Negative (Negative) mg/dL Urine Blood Trace H (Negative) Urine Nitrite Negative (Negative) Ur Leukocyte Esterase Negative (Negative) Urine RBC 0-2 (0-2) /HPF Urine WBC 0-5 (0-5) /HPF Ur Squamous Epith Cells 0-2 (0-2) /HPF Urine Bacteria None Seen (None Seen) Hyaline Casts 0-2 (0-2) /LPF Discharge Plan Discharge Clinical Impression: Gastroenteritis Patient Disposition: Home, Self-Care Instructions: Gastroenteritis (ED) Additional Instructions: Drink plenty of fluids Medicine for nausea vomiting and diarrhea as prescribed Follow with PCP if not better Beber mucho l?quido Medicamentos para n?useas, v?mitos y diarrea seg?n lo prescrito. Seguir con PCP si no es mejor Prescriptions: New loperamide [Imodium A-D] 2 mg capsule 2 mg PO Q6H PRN (Reason: loose stool) Qty: 10 0RF ondansetron 4 mg tablet,disintegrating 4 mg PO Q6-8H PRN (Reason: nausea and vomiting) Qty: 7 0RF No Action atovaquone 750 mg/5 mL Suspension 1,500 mg PO DAILY Rx Instructions: must administer with food, preferably a high-fat meal acyclovir 400 mg tablet 400 mg PO 5XD Qty: 90 0RF omeprazole 40 mg capsule,delayed release(DR/EC) 40 mg PO DAILY Qty: 30 0RF hydroxyzine HCl 25 mg tablet 25 mg PO QID PRN (Reason: itch) triamcinolone acetonide 0.1 % cream topical TID fluconazole 100 mg tablet 100 mg PO DAILY Biktarvy 50-200-25 mg tablet 1 tab PO DAILY sulfamethoxazole-trimethoprim [Bactrim DS] 800-160 mg tablet 2 tab PO BID 21 Days Qty: 84 0RF fluconazole [Diflucan] 200 mg tablet 200 mg PO DAILY 14 Days Qty: 14 0RF Dovato 50-300 mg tablet 1 tab PO DAILY 30 Days Qty: 30 0RF Interventions: ED Discharge Assessment Last Done: 03/19/23 01:42 Discharge Date/Time: 03/19/23 01:42 Print Language: Montenegrin
[2023-03-18 19:19] VITALS: BP 134/83; PULSE 70; RESP 18; TEMP 36.8; O2SAT 98; BMI 31.0
[2023-03-18 20:05] LABS: MANUAL DIFF FLAG NO
[2023-03-18 20:07] LABS: Basophils Percent Auto 0.4 % (0-2); Eosinophils Absolute Auto 0.1 X10*3/uL (0.0-0.4); Eosinophils Percent Auto 1.5 % (0-4); Hematocrit 41.7 % (42.0-52.0); Hemoglobin 14.4 g/dl (14.0-18.0); Imm Gran Abs Auto 0.02 X10*3/uL (0.00-0.03); Imm Gran Pct Auto 0.2 % (0.0-0.4); Lymphocytes Absolute Auto 1.9 X10*3/uL (1.2-4.9); Lymphocytes Percent Auto 22.3 % (20-40); Mean Corpuscular HGB Conc 34.5 g/dl (31.0-36.0); Mean Corpuscular Hemoglobin 29.8 pg (27.0-33.0); Mean Corpuscular Volume 86.3 fL (80.0-98.0); Mean Platelet Volume 10.2 fL (9.4-12.4); Monocytes Percent Auto 11.8 % (2-11); Neutrophils Absolute Auto 5.4 x10*3/uL (2.0-8.3); Neutrophils Percent Auto 63.8 % (45-73); Platelet Count 278 X10*3/uL (160-400); Red Blood Count 4.83 X10*6/uL (4.60-5.80); Red Cell Distribution Width 11.9 % (11.0-16.0); White Blood Count 8.4 X10*3/uL (4.8-10.8)
[2023-03-18 20:24] LABS: Alanine Aminotransferase 13 U/L (0-40); Albumin Level 4.1 g/dL (3.5-5.0); Alkaline Phosphatase 117 U/L (39-117); Anion Gap 12 (12-20); Aspartate Amino Transferase 14 U/L (5-37); Bilirubin Direct 0.1 mg/dL (0.0-0.5); Bilirubin Total 0.3 mg/dL (0.0-1.0); Blood Urea Nitrogen 9 mg/dL (9-16); Calcium 9.3 mg/dL (8.4-10.2); Carbon Dioxide 23 mmol/L (22-29); Chloride 108 mmol/L (96-108); Creatinine Clr Calc Pharmacy 129.6; Estimated Glomerular Filt Rate > 60; Glucose Random 113 mg/dL (60-115); Lipase 30 U/L (8-78); Potassium 3.2 mmol/L (3.3-5.1); Sodium 140 mmol/L (135-145); Total Protein 8.2 g/dL (6.5-8.0)
[2023-03-18 22:11] LABS: Appearance Urine Clear; Color Urine Yellow; Glucose Urine UA Negative (Negative); Leukocyte Esterase Urine Negative (Negative); Nitrite Urine Negative (Negative); PH 5.5 (5.0-9.0); Specific Gravity - Urine >= 1.030 (1.005-1.025); UMIC TRIGGER UACC YES; Urine Blood Trace (Negative); Urine Ketones Negative (Negative); Urine Protein 30 (1+) mg/dL (Neg-Trace)
[2023-03-18 22:16] LABS: Bacteria Urine None Seen (None Seen); Hyaline Casts Urine 0-2 /LPF (0-2); RBC Urine 0-2 /HPF (0-2); Squamous Epithelial Cell Urine 0-2 /HPF (0-2); WBC Urine 0-5 /HPF (0-5)
[2023-03-19 00:43] VITALS: BP 124/70; PULSE 72; RESP 17; TEMP 36.6; O2SAT 95
[2023-03-19] MEDS: Dicyclomine HCl 10 MG CAPSULE 20 MG PO (01:01)
[2023-03-19] MEDS: Potassium Bicarbonate/Cit AC 25 MEQ TABLET.EFF PO (01:01)
--- NOTE | 2023-03-19 01:06 | PC.NURSE ---
Patient alert and oriented. Boyfriend, Provider and staff medical office assistant at bedside. Patient report having diarrhea and vomiting for the past couple of days. reports pain all over his abdominal area. Pt report 6/10 pain. VSS- afebrile 97.9, hr 72, rr, 17, bp 124/70, 95%. Medications administered as per AUG. Call finnegan within reach. Plan of care ongoing.
--- NOTE | 2023-03-19 01:41 | PC.NURSE ---
Reviewed discharge instruction with pt. pt verbalized understanding , no sign of distress. Notified CHUCK Graham.
== END 2023-03-19 01:42 | disposition home or self-care (01) ==
LOC: HO.ED 03-19 01:14
PROVIDERS: Physician Assistant Medical; Emergency Provider Internal Medicine
DX: K52.9 Noninfective gastroenteritis and colitis, unspecified (principal); Z79.899 Other long term (current) drug therapy
CPT/HCPCS: 36415; 74176; 80048; 80076; 81001; 83690; 83735; 85025; 99284

== ENCOUNTER 2023-06-13 09:11 | Emergency (ER) | payer OTHER, SELFPAY ==
[2023-06-13 09:13] VITALS: BP 123/78; PULSE 99; RESP 20; TEMP 36.9; O2SAT 97; BMI 28.8
--- NOTE | 2023-06-13 09:43 | ED_ITS ---
HPI - Male Genitourinary General Chief complaint: Urogenital-Male Stated complaint: Swollen Penis Time Seen by Provider: 06/13/23 09:28 Source: patient Mode of arrival: ambulatory Limitations: no limitations History of Present Illness HPI Narrative: 33-year-old male with pmhx significant for tobacco use disorder, marijuana use, spontaneous pneumothorax, HIV/ AIDS, and syphilis presents to the ED today with a complaint of penile pain and swelling x2 days. Patient is uncircumcised. States that he is able to retract the foreskin however this induces discomfort. Reports swelling at the base of his penis. Admits to swelling to the area just above his genitals, states he has noticed bumps in his groin. Denies recent travel. Denies recent insect or tick bites. Denies penile discharge or lesions. Denies fever, chills, rashes, nausea, vomiting. Related Data Home Medications Medication Instructions Recorded Confirmed atovaquone 750 mg/5 mL oral 1,500 mg PO DAILY 05/20/22 05/20/22 suspension bictegravir 50 mg-emtricitabine 1 tab PO DAILY 07/08/22 200 mg-tenofovir alafenam 25 mg tablet (Biktarvy) fluconazole 100 mg tablet 100 mg PO DAILY 07/08/22 hydroxyzine HCl 25 mg tablet 25 mg PO QID PRN itch 07/08/22 triamcinolone acetonide 0.1 % appl topical TID itch 07/08/22 topical cream Previous Rx's Medication Instructions Recorded fluconazole 200 mg tablet 200 mg PO DAILY 14 days #14 tabs 05/15/22 (Diflucan) sulfamethoxazole 800 2 tab PO BID 21 days #84 tabs 05/15/22 mg-trimethoprim 160 mg tablet (Bactrim DS) dolutegravir 50 mg-lamivudine 300 1 tab PO DAILY 30 days #30 tabs 05/17/22 mg tablet (Dovato) acyclovir 400 mg tablet 400 mg PO 5XD #90 tabs 05/23/22 omeprazole 40 mg capsule,delayed 40 mg PO DAILY #30 caps 05/23/22 release loperamide 2 mg capsule (Imodium 2 mg PO Q6H PRN loose stool #10 03/19/23 A-D) caps ondansetron 4 mg disintegrating 4 mg PO Q6-8H PRN nausea and 03/19/23 tablet vomiting #7 tabs doxycycline hyclate 100 mg capsule 100 mg PO BID 21 days #42 caps 06/13/23 Allergies Allergy/AdvReac Type Severity Reaction Status Date / Time No Known Allergies Allergy Verified 07/08/22 16:34 Review of Systems Review of Systems: Constitutional: No fever, chills, fatigue, night sweats, weight changes ENT/Mouth: No ear pain, hearing loss, nasal congestion, sinus pain, rhinorrhea, sore throat Eyes: No eye pain, swelling, redness, vision changes, discharge Cardio: No chest pain, palpitations, LOPEZ, orthopnea, peripheral edema Pulm: No SOB, cough, sputum, wheezing, dyspnea, hemoptysis GI: No nausea, vomiting, hematemesis, abdominal pain, diarrhea, constipation, hematochezia, melena, +suprapubis swelling : No irregular bleeding, dysuria, frequency, urgency, hesitancy, hematuria, flank pain, urinary flow changes, urinary incontinence or retention, +penile pain/swelling MSK: No back pain, neck pain, joint pain, myalgias Skin: No lesions, rashes Neuro: No weakness, numbness, paresthesias, LOC, dizziness, headache All other systems reviewed and are negative. [facility] Past Medical History Attestation statement: The following information was validated with the patient. Source: old records reviewed and nursing notes reviewed Medical History Campylobacter diarrhea Syphilis (acquired) AIDS Spontaneous pneumothorax COPD (chronic obstructive pulmonary disease) COVID-19 HIV (human immunodeficiency virus infection) Pericarditis Tachycardia Tobacco use Pneumonia due to COVID-19 virus COVID-19 Spontaneous pneumothorax Family History Family History Mother No active medical problems Father No active medical problems Social History Social History Household Members: Significant Other and Family Housing: Apartment Do you presently have visiting nurse or other home services: No Unable to assess alcohol history related to: Unable to respond Alcohol intake: former Patient Tobacco Use Status: Former Tobacco user Quit Date: apr 18 2022 Tobacco use type: Cigarette Cigarette Packs Per Day: 1 Cigarettes Per Day: 20.0 e-Cigarette/Vaping Use: Former Use Substance Use Type: Marijuana Advance Directives: No Advance Directives Information Provided: No service: No Current occupation: unemployed,did work at [employer] Sexual orientation: MSM Gender identity: Male Physical Exam Vital Signs: Vital Signs: Last Vital Signs Temp 98.4 F 06/13/23 09:13 Pulse 99 06/13/23 09:13 Resp 20 06/13/23 09:13 BP 123/78 06/13/23 09:13 Pulse Ox 97 06/13/23 09:13 O2 Del Method Room Air 06/13/23 09:13 BMI result Body Mass Index 28.8 Vital signs stable, afebrile. Const: General: cooperative, healthy appearing, comfortable, no acute distress, alert and awake Orientation/consciousness: patient oriented x3 Limitations: no limitations HEENT: Head: Yes normal to inspection Eyes: General: appearance normal, both eyes and all related structures Conjunctivae: conjunctivae normal Sclerae: sclerae normal Pupils: Equal, round and reactive pupils present Neck: Neck: Yes normal visual inspection, Yes full ROM and Yes no lymphadenopathy Chest: Chest palpation & inspection: normal inspection of the chest Resp: Effort & Inspection: normal respiratory effort and able to speak in complete sentences Auscultation: clear to auscultation bilaterally Cardio: Rate: regular rate Rhythm: regular rhythm Peripheral pulses: femoral pulses present, posterior tibial pulses present and dorsalis pedis present GI: Other: + abdomen soft, nontender, nondistended, no rebound tenderness or guarding. There is swelling noted to the suprapubic region diffusely. + Multiple palpable inguinal lymph nodes bilaterally. Tender to palpation. + no palpable inguinal or abdominal salomón ias. : Other: Male sensitive exam performed with [employer] in room to lead relay tester. Uncircumcised penis. No external lesions, ulcers, or masses. Meatus normal. There is minimal edema noted to the base of the penis. Able to retract foreskin with ease however this induces discomfort. Normal testicular lie. No scrotal swelling. No palpable masses. No pernieal edema or induration. No overlying cellulitic changes. General: Yes no CVA tenderness Back/Spine/Pelvis: Other: No midline spinous tenderness. No paraspinal muscle tenderness. No step off deformity. Back: no CVA tenderness Skin: General skin exam: no rashes or lesions noted Neuro: General: patient oriented x3, gait normal and moves all extremities Cranial nerves: Yes Equal, round and reactive pupils present Extrem: General: Yes normal to inspection and Yes full ROM Course Course Course Narrative: 1026-- case discussed with infectious disease doctor, Dr. Blanchard. 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 She agrees with plan for 1 dose of ceftriaxone in ED and a 21 day course of doxycycline with ID follow-up outpatient. > discussed suspected diagnosis with patient along with plan. He is agreeable to dual antibiotic therapy. Patient has remained stable throughout ED visit today. Discussed strict return precautions. All questions answered at this time. Patient is agreeable with disposition and stable for discharge. Medications Administered Discontinued Medications Generic Name Dose Route Start Last Admin Trade Name Freq PRN Reason Stop Dose Admin Ceftriaxone Sodium 500 mg/ 0 mg 06/13/23 11:11 06/13/23 11:39 Lidocaine HCl 1 ml IM 06/13/23 11:12 500 kit ONCE ONE Administration Medical Decision Making Medical Decision Making [facility] Narrative: 33-year-old male with pmhx significant for tobacco use disorder, marijuana use, spontaneous pneumothorax, COPD HIV/ AIDS, and syphilis presents to the ED today with a complaint of penile pain and swelling x2 days. Vital signs stable, afebrile. Abdomen soft, nontender, nondistended, no rebound tenderness or guarding. There is swelling noted to the suprapubic region diffusely. There are multiple palpable inguinal lymph nodes bilaterally. Tender to palpation. no palpable inguinal or abdominal hernias. On male sensitive exam, uncircumcised penis. o external lesions, ulcers, or masses. Meatus normal. There is minimal edema noted to the base of the penis. Able to retract foreskin with ease however this induces discomfort. Normal testicular lie. No scrotal swelling. No palpable masses. No pernieal edema or induration. No overlying cellulitic changes. Clinical concern for sexually transmitted infection, syphilis, LGV. Unlikely tick-borne illness, fourniers gangrene, proctitis, varicocele, hydrocele. Plan for Infectious Disease consultation and disposition. Differential Diagnosis Differential Diagnoses: The differential diagnosis associated with the presentation includes as above. Admission/Observation Not indicated. Consult Healthcare Provider Management of the patient was discussed with: [employer] (infectious disease, Dr. Blanchard) External Record Review External record reviewed: Inpatient record Prescription Management I considered prescription management with: Antibiotic Chronic Conditions Patient?s care impacted by: Other (HIV, AIDs, syphillis) Social Determinants Patient?s care significantly limited by Social Determinants of Health including: Other Social Determinant of Health Critical Care Time Critical Care Time Critical Care Time: No Discharge Plan Discharge Clinical Impression: Lymphogranuloma venereum Patient Disposition: Home, Self-Care Instructions: Syphilis (ED), HIV Infection (ED) Additional Instructions: Your symptoms are most consistent with lymphogranuloma venereum. This is typically associated with HIV and other sexually transmitted infections. You were given 1 dose of ceftriaxone in the emergency department today. A 2nd antibiotic, doxycycline, has been sent to your pharmacy. Take this for the next 21 days. Do not miss any doses or stop taking this medication early as this may cause infection to persist or worsen. You may also take Tylenol and ibuprofen as needed for pain/discomfort. Please abstain from having sex until you complete the entire course of antibiotics. This will help prevent transmission to others. A referral to Infectious Disease doctor has been provided to you. You may call them to make an appointment. They will not call you. Additionally keep your appointment with your doctor for this upcoming week. If symptoms persist or worsen please return to the emergency department. In the case of an emergency call 911. Sonia s?ntomas son m?s consistentes con los de un linfogranuloma yessi?reo. Mobile generalmente se asocia con el VIH y otras infecciones de transmisi?n sexual. Hoy le administraron 1 dosis de ceftriaxona en el departamento de emergencias. Le guido enviado a horta farmacia un mellisa antibi?bong, la doxiciclina. [place] esto ernst los pr?ximos 21 d?as. No omita ninguna dosis ni deje de shaq maxwell med icamento antes de tiempo, ya que esto puede hacer que la infecci?n persista o empeore. Tambi?n puede shaq Tylenol e ibuprofeno seg?n sea necesario para el dolor o la molestia. Abst?ngase de tener relaciones sexuales hasta que complete todo el tratamiento con antibi?ticos. Mobile ayudar? a prevenir la transmisi?n a otras personas. Se le matos proporcionado daniela derivaci?n a un m?dico de enfermedades infecciosas. Puede llamarlos para programar daniela orion. No te llamar?n. Adem?s acude a tu orion con tu m?dico para esta pr?xima semana. Si los s?ntomas persisten o empeoran, regrese al departamento de emergencias. En rajesh de emergencia llame al 911. Prescriptions: New doxycycline hyclate 100 mg capsule 100 mg PO BID 21 Days Qty: 42 0RF No Action atovaquone 750 mg/5 mL Suspension 1,500 mg PO DAILY Rx Instructions: must administer with food, preferably a high-fat meal acyclovir 400 mg tablet 400 mg PO 5XD Qty: 90 0RF omeprazole 40 mg capsule,delayed release(DR/EC) 40 mg PO DAILY Qty: 30 0RF loperamide [Imodium A-D] 2 mg capsule 2 mg PO Q6H PRN (Reason: loose stool) Qty: 10 0RF ondansetron 4 mg tablet,disintegrating 4 mg PO Q6-8H PRN (Reason: nausea and vomiting) Qty: 7 0RF hydroxyzine HCl 25 mg tablet 25 mg PO QID PRN (Reason: itch) triamcinolone acetonide 0.1 % cream topical TID fluconazole 100 mg tablet 100 mg PO DAILY Biktarvy 50-200-25 mg tablet 1 tab PO DAILY sulfamethoxazole-trimethoprim [Bactrim DS] 800-160 mg tablet 2 tab PO BID 21 Days Qty: 84 0RF fluconazole [Diflucan] 200 mg tablet 200 mg PO DAILY 14 Days Qty: 14 0RF Dovato 50-300 mg tablet 1 tab PO DAILY 30 Days Qty: 30 0RF Referrals: [facility] Infectious Disease [Provider Group] - 3 days (Suspected LGV) Stand Alone Forms: Work/School Release Interventions: ED Discharge Assessment Last Done: 06/13/23 11:59 Discharge Date/Time: 06/13/23 11:59 Print Language: Malagasy
[2023-06-13] MEDS: cefTRIAXone sodium 500 MG, Lidocaine HCl 1 % MPF 1 ML IM (11:39)
== END 2023-06-13 11:59 | disposition home or self-care (01) ==
PROVIDERS: Emergency Provider Emergency Medicine Emergency Medical Services
DX: A55 Chlamydial lymphogranuloma (venereum) (principal); N48.89 Other specified disorders of penis; Z87.891 Personal history of nicotine dependence; Z79.899 Other long term (current) drug therapy
CPT/HCPCS: 96372; 99283; 99284; J0696